=== PATIENT | male | born 1950 | race Caucasian/White ===

== ENCOUNTER 2019-04-11 01:35 | Emergency (ER) | payer MEDICARE, OTHER, SELFPAY ==
[2019-04-11 01:36] VITALS: BP 167/76; PULSE 75; RESP 18; TEMP 36.8; O2SAT 100; BMI 28.5
--- NOTE | 2019-04-11 01:38 | ED.GENADULT ---
HPI - General Adult General Chief complaint: GI Bleed Stated complaint: Rectal Bleeding Time Seen by Provider: 04/11/19 01:37 Source: patient Mode of arrival: ambulatory Limitations: no limitations History of Present Illness HPI narrative: Patient is a 68-year-old male on Brilinta after he had cardiac stents placed of rectal bleeding. Patient denies any abdominal pain. States that he has been straining somewhat movement of the past couple days. Is not having any pain in his rectum. Did have hematuria several days ago but nothing now. He states that he is having bright red blood per rectum. Related Data Allergies Allergy/AdvReac Type Severity Reaction Status Date / Time Sulfa (Sulfonamide Allergy Hives Verified 04/11/19 01:49 Antibiotics) Review of Systems Constitutional Denies fever(s) and Denies headache(s) ENT Ears, Nose, Mouth, and Throat: Denies headache(s) Cardiovascular Denies chest pain and Denies dyspnea Respiratory Denies dyspnea Gastrointestinal Gastrointestinal: Denies abdominal pain, Denies nausea and Denies vomiting Comments: Bright red blood per rectum Genitourinary Denies dysuria Integumentary/Breasts Denies rash Neurologic Denies behavioral changes and Denies headache(s) Psychiatric Denies behavioral changes Hematologic/Lymphatic Reports easy bleeding and Reports easy bruising [facility] Medical History (Updated 04/11/19 @ 04:49 by Xavier Blank DO) Coronary artery disease (Acute) Diabetes mellitus (Acute) HTN (hypertension) (Acute) Surgical History (Updated 04/11/19 @ 01:50 by Nicole Coffman RN) History of heart artery stent (Acute ~02/06/19) Social History (Updated 04/11/19 @ 04:49 by Xavier Blank DO) lives independently: Yes Social History (Updated 04/11/19 @ 04:49 by Xavier Blank DO) lives independently: Yes Exam Initial Vital Signs Initial Vital Signs: Vital Signs Temperature 98.3 F 04/11/19 01:36 Pulse Rate 75 04/11/19 01:36 Respiratory Rate 18 04/11/19 01:36 Blood Pressure 167/76 H 04/11/19 01:36 Pulse Oximetry 100 04/11/19 01:36 Const General: cooperative, healthy appearing, comfortable, well developed, well groomed and No acute distress Orientation: alert and awake [facility] Head: normal to inspection and normocephalic Resp Effort & Inspection: normal respiratory effort Cardio Rate: regular rate Rhythm: regular rhythm GI Inspection: non-distended Palpation: soft, No firm and No tender Rectal Exam: normal sphincter tone, heme positive stool and hemorrhoids Skin Rashes: no rashes Neuro General: alert and awake Extrem General: normal to inspection and capillary refill normal Course Orders Ordered: ED Orders 04/11/19 02:01 Basic Metabolic Panel Stat Complete Blood Count AUTO DIFF Stat Partial Thromboplastin Time Stat Prothrombin Time INR Stat Vital Signs - 8 hr 04/11/19 01:36 04/11/19 02:26 Temperature 98.3 F Pulse Rate 75 68 Respiratory Rate 18 Blood Pressure 167/76 H Blood Pressure [Left Arm] 140/69 Pulse Oximetry 100 100 Medical Decision Making Lab Data Lab results reviewed: Yes I reviewed the patient's lab results. Result diagrams: 04/11/19 02:01 04/11/19 02:01 Lab Results 04/11/19 04/11/19 04/11/19 Range/Units 02:01 02:01 02:01 WBC 7.5 (4.5-11.0) X10^3/uL RBC 4.52 (4.5-5.9) X10^6/uL Hgb 13.4 L (13.5-17.5) g/dL Hct 39.6 L (41-53) % MCV 87.7 (80-100) fL MCH 29.6 (26-34) PG MCHC 33.7 (30-36) % RDW 13.1 (11.6-14.8) % Plt Count 352 (150-400) X10^3/uL Neut % (Auto) 58.7 (50-75) % Lymph % (Auto) 24.2 L (25-40) % [place] % (Auto) 13.5 (3-14) % Eos % (Auto) 2.2 (2-4) % Baso % (Auto) 1.4 (0-2) % Neut # (Auto) 4400 (4657-3339) /uL Lymph # (Auto) 1800 (0776-7177) /uL [place] # (Auto) 1000 H (0-900) /uL Eos # (Auto) 200 (0-450) /uL Baso # (Auto) 100 (0-100) /uL PT 12.2 (10.1-12.7) SECONDS INR 1.1 (0.9-1.3) APTT 38 H (26.4-36.2) SECONDS Sodium 137 (137-145) mmol/L Potassium 4.0 (3.4-5.1) mmol/L Chloride 101 (98-107) mmol/L Carbon Dioxide 27 (22-32) mmol/L BUN 16 (9-20) mg/dL Creatinine 0.80 (0.66-1.25) mg/dL Estimated GFR > 60.0 (>60) mL/min BUN/Creatinine Ratio 20.0 (6-22) Glucose 161 H (80-110) mg/dL Calcium 9.4 (8.4-10.2) mg/dL MDM Narrative Medical decision making narrative: Patient does have bright red blood per rectum however has multiple external hemorrhoids that are thrombosed. He has no abdominal pain. Not anemic. Not tachycardic. I do suspect that his rectal bleeding secondary to the hemorrhoids complicated by the anti-platelet agents that he is taking. No indication for blood transfusion. No indication to admit to the hospital. We did discuss the hemorrhoids and treatment options for these. We discussed return precautions. He is going to follow up with his primary doctor. He expressed understanding and agreement plan. Discharge Plan Departure Patient Disposition: Home Clinical Impression: Hemorrhoids Qualifiers: Hemorrhoid type: other Qualified Code(s): K64.8 - Other hemorrhoids Discharge Date/Time: 04/11/19 02:35 Interventions: ED Discharge Assessment Last Done: 04/11/19 02:29 Instructions: Hemorrhoids (Alternative Therapy), DI for Hemorrhoid Banding, DI for Hemorrhoids Activity Restrictions/Additional Instructions: You can purchase tucks pads or preparation H [id number]. It is also important that you have nice soft bowel movements and avoiding diarrhea and constipation. Expect continued bleeding especially with bowel movements over the next several days. Tomorrow contact your primary doctor for a follow-up and to discuss the indications for referral to see General surgery. Continue all of your medications as directed. Referrals: Sarah Thomas ARNP [Primary Care Provider] -
[2019-04-11 02:11] LABS: Add Manual Diff / Slide Review NO; Basophils Absolute Auto 100 /uL (0-100); Basophils Percent Auto 1.4 % (0-2); Eosinophils Absolute Auto 200 /uL (0-450); Eosinophils Percent Auto 2.2 % (2-4); Hematocrit 39.6 % (41-53); Hemoglobin 13.4 g/dL (13.5-17.5); Lymphocytes Absolute Auto 1800 /uL (1100-4500); Lymphocytes Percent Auto 24.2 % (25-40); Mean Corpuscular HGB Conc 33.7 % (30-36); Mean Corpuscular Hemoglobin 29.6 PG (26-34); Mean Corpuscular Volume 87.7 fL (80-100); Monocytes Absolute Auto 1000 /uL (0-900); Monocytes Percent Auto 13.5 % (3-14); Neutrophils Absolute Auto 4400 /uL (1500-7000); Neutrophils Percent Auto 58.7 % (50-75); Platelet Count 352 X10^3/uL (150-400); Red Blood Cell Count 4.52 X10^6/uL (4.5-5.9); Red Cell Distribution Width 13.1 % (11.6-14.8); White Blood Cell Count 7.5 X10^3/uL (4.5-11.0)
[2019-04-11 02:16] LABS: INR 1.1 (0.9-1.3); Prothrombin Time 12.2 SECONDS (10.1-12.7)
[2019-04-11 02:18] LABS: PTT Partial Thromboplastin Tim 38 SECONDS (26.4-36.2)
[2019-04-11 02:20] LABS: Blood Urea Nitrogen 16 mg/dL (9-20); Calcium 9.4 mg/dL (8.4-10.2); Carbon Dioxide 27 mmol/L (22-32); Chloride 101 mmol/L (98-107); Estimated Glomerular Filt Rate > 60.0 mL/min (>60); Glucose 161 mg/dL (80-110); HEMOLYSIS < 15 (0-50); Sodium 137 mmol/L (137-145)
[2019-04-11 02:26] VITALS: BP 140/69; PULSE 68; O2SAT 100
== END 2019-04-11 02:35 | disposition home or self-care (01) ==
PROVIDERS: Emergency Provider Emergency Medicine; PCP Nurse Practitioner Family
DX: K64.8 Other hemorrhoids (principal)
CPT/HCPCS: 36415; 80048; 85025; 85610; 85730; 99282; 99283

== ENCOUNTER 2019-05-13 14:01 | Emergency (ER) | payer MEDICARE, OTHER, SELFPAY ==
[2019-05-13 14:11] VITALS: BP 148/81; PULSE 102; RESP 16; TEMP 38.9; O2SAT 96; BMI 28.7
--- NOTE | 2019-05-13 14:18 | DI.RAD.S_ITS ---
PROCEDURE: XR CHEST 1V INDICATIONS: suspected sepsis TECHNIQUE: One view of the chest was acquired. COMPARISON: None. FINDINGS: Surgical changes and devices: None. Lungs and pleura: Lungs are clear. No pleural effusions or pneumothorax. Mediastinum: Mediastinal contours appear normal. Heart size is normal. Bones and chest wall: No suspicious bony lesions. Overlying soft tissues appear unremarkable. IMPRESSION: No acute cardiopulmonary disease. Dictated by: Trini Jackson M.D. on 05/13/2019 at 14:51 Approved by: Trini Jackson M.D. on 05/13/2019 at 14:51
[2019-05-13] MEDS: SODIUM CHLORIDE 0.9% 1,000 ML 1000 ML IV (14:50)
--- NOTE | 2019-05-13 14:52 | PC.NURSE ---
PIV placed in left AC, labs drawn (purple, red, green, l.blue, bowens, cx x 2), labels applied after 2 identifier check with pt, conveyed to lab via tube system)
[2019-05-13 14:53] VITALS: TEMP 38.8
[2019-05-13] MEDS: ACETAMINOPHEN 325 MG TABLET 650 MG PO (14:53)
[2019-05-13 15:13] LABS: Add Manual Diff / Slide Review NO; Basophils Absolute Auto 0 /uL (0-100); Basophils Percent Auto 0.2 % (0-2); Eosinophils Absolute Auto 0 /uL (0-450); Hematocrit 40.5 % (41-53); Hemoglobin 13.4 g/dL (13.5-17.5); Lymphocytes Absolute Auto 700 /uL (1100-4500); Lymphocytes Percent Auto 3.8 % (25-40); Mean Corpuscular HGB Conc 33.1 % (30-36); Mean Corpuscular Hemoglobin 29.2 PG (26-34); Mean Corpuscular Volume 88.1 fL (80-100); Monocytes Absolute Auto 2100 /uL (0-900); Monocytes Percent Auto 11.2 % (3-14); Neutrophils Absolute Auto 16000 /uL (1500-7000); Neutrophils Percent Auto 84.8 % (50-75); Platelet Count 279 X10^3/uL (150-400); Red Cell Distribution Width 13.7 % (11.6-14.8); White Blood Cell Count 18.9 X10^3/uL (4.5-11.0)
[2019-05-13 15:20] LABS: INR 1.2 (0.9-1.3); Prothrombin Time 13.8 SECONDS (10.1-12.7)
[2019-05-13 15:23] LABS: PTT Partial Thromboplastin Tim 35 SECONDS (26.4-36.2)
[2019-05-13 15:25] LABS: Amorphous Sediment Urine 1+; Bacteria Urine Few (2-10); Culture Indicated Urine Specimen Cultured; Mucus Urine 1+ (Negative); RBC Urine 1-5/HPF (0-5/HPF); Squamous Epithelial Cell Urine 0-1 /HPF (0-5/HPF); WBC Urine 10-30/HPF (0-5/HPF)
[2019-05-13 15:27] LABS: Lactate (Lactic Acid) 1.3 mmol/L (0.7-2.1)
[2019-05-13 15:29] LABS: Alanine Aminotransferase 9 IU/L (21-72); Albumin 4.2 g/dL (3.5-5.0); Albumin Globulin Ratio 1.2 (1.0-2.8); Alkaline Phosphatase 87 U/L (38-126); Aspartate Aminotransferase 22 IU/L (17-59); BUN Creatinine Ratio 21.4 (6-22); Blood Urea Nitrogen 15 mg/dL (9-20); Carbon Dioxide 23 mmol/L (22-32); Chloride 99 mmol/L (98-107); Estimated Glomerular Filt Rate > 60.0 mL/min (>60); Globulin 3.5 g/dL (1.7-4.1); Glucose 172 mg/dL (80-110); HEMOLYSIS < 15 (0-50); Lipase 54 U/L (23-300); Potassium 3.8 mmol/L (3.4-5.1); Sodium 135 mmol/L (137-145); Total Protein 7.7 g/dL (6.3-8.2)
[2019-05-13] MEDS: levoFLOXacin 250 MG TABLET 750 MG PO (15:32)
[2019-05-13 15:36] VITALS: BP 139/66; PULSE 88; RESP 16; TEMP 38; O2SAT 98
--- NOTE | 2019-05-13 15:50 | ED_ITS ---
HPI - Fever General Chief Complaint: Fever Stated Complaint: BALANCE PROBLEMS Time Seen by Provider: 05/13/19 14:30 Source: patient Mode of arrival: ambulatory Limitations: no limitations History of Present Illness HPI Narrative: Patient comes to the emergency department complaining of a fever and not feeling well for the last 2 days. He states he has been urinating frequently wonders if he has a urinary tract infection. No chest pain, cough, or shortness of breath. No diarrhea. No sick contacts. Patient denies abdominal pain or chest pain. He states that he is on Humira and Otezla for atenolol-induced psoriasis. He states these have been controlling his psoriasis fairly well. No other complaints at this time. Related Data Home Medications Medication Instructions Recorded Confirmed adalimumab [Humira Pen] 1 dose SUBCUT Q2W 05/13/19 05/13/19 amlodipine 10 mg PO DAILY 05/13/19 05/13/19 apremilast [Otezla] 30 mg PO BID 05/13/19 05/13/19 blood sugar diagnostic [FreeStyle 05/13/19 05/13/19 Lite Strips] halobetasol propionate 1 applic TOPICAL DIRECTED 05/13/19 05/13/19 lisinopril 10 mg PO DAILY 05/13/19 05/13/19 metformin 1,000 mg PO BID 05/13/19 05/13/19 simvastatin 20 mg PO QPM 05/13/19 05/13/19 ticagrelor [Brilinta] 90 mg PO BID 05/13/19 05/13/19 Previous Rx's Medication Instructions Recorded levofloxacin [Levaquin] 500 mg PO DAILY #14 tab 05/13/19 ondansetron 4 mg PO Q6H PRN #14 tab 05/13/19 Allergies Allergy/AdvReac Type Severity Reaction Status Date / Time Sulfa (Sulfonamide Allergy Hives Verified 04/11/19 01:49 Antibiotics) Review of Systems Constitutional Denies chills, Reports fever(s), Denies lethargy and Denies weakness Eyes Denies change in vision, Denies eye discharge, Denies irritation and Denies loss of vision ENT Ears, Nose, Mouth, and Throat: Denies change in voice, Denies neck pain and Denies sore throat Cardiovascular Denies chest pain, Denies irregular heart rhythm, Denies lightheadedness, Denies palpitations, Denies dyspnea, Denies dyspnea on exertion and Denies orthopnea Respiratory Denies cough, Denies dyspnea, Denies dyspnea on exertion and Denies wheezing Gastrointestinal Gastrointestinal: Denies abdominal pain, Denies change in bowel habits, Denies diarrhea, Denies nausea and Denies vomiting Genitourinary Denies hematuria, Denies flank pain, Reports urinary frequency, Denies urinary incontinence and Denies urinary urgency Musculoskeletal Denies neck pain Integumentary/Breasts Denies pruritus, Denies erythema, Denies rash and Denies wounds Neurologic Denies confusion, Denies loss of vision and Denies weakness Psychiatric Denies anxiety, Denies confusion, Denies depression, Denies homicidal ideation and Denies suicidal ideation Endocrine Denies palpitations Hematologic/Lymphatic Denies easy bruising Allergic/Immunologic Denies wheezing [facility] Medical History Coronary artery disease (Acute) Diabetes mellitus (Acute) HTN (hypertension) (Acute) Surgical History History of heart artery stent (Acute ~02/06/19) Social History (Updated 04/11/19 @ 04:49 by Xavier Blank DO) lives independently: Yes Smoking Status: Former smoker Social History lives independently: Yes Smoking Status: Former smoker Exam Initial Vital Signs Initial Vital Signs: Vital Signs Temperature 102.0 F H 05/13/19 14:11 Pulse Rate 102 H 05/13/19 14:11 Respiratory Rate 16 05/13/19 14:11 Blood Pressure 148/81 H 05/13/19 14:11 Pulse Oximetry 96 05/13/19 14:11 Const General: cooperative and well developed Nutritional Appearance: well nourished Orientation: alert, awake, oriented x3 and not confused [facility] Head: normocephalic and atraumatic Ears: external ears normal Nose: external nose normal and No nasal discharge Face and sinus: face symmetric and No dry mucous membranes Mouth: oral mucosae normal and moist mucous membranes Teeth and gingiva: dentition normal Eyes General: appearance normal, both eyes and all related structures Eyelids: eyelids normal Conjunctivae: conjunctivae normal Sclera: sclerae normal Pupils: PERRL EOM: EOM intact bilaterally Neck Neck: normal visual inspection, trachea midline, No lymphadenopathy, No midline deformity and No JVD Lymphatic: No lymphedema Chest Chest: normal inspection of the chest Resp Effort & Inspection: normal respiratory effort, able to speak in complete sentences, no respiratory distress and no use of accessory muscles Auscultation: clear to auscultation bilaterally, no rales, no rhonchi and no wheezes Cardio Rate: regular rate Rhythm: regular rhythm Heart Sounds: no click, no gallops, no murmurs and no rubs Pulses: normal peripheral pulses GI Inspection: non-distended Palpation: soft, no hepatosplenomegaly, No guarding, No pulsatile mass and No tender Auscultation: normal bowel sounds Back/Spine/Pelvis Back: No CVA tenderness Cervical Spine: cervical ROM normal and No pain with cervical ROM Thoracic/Lumbar Spine: thoracic and lumbar spine normal to inspection Skin General: no rashes or lesions noted, No jaundice and No petechiae Neuro General: alert, oriented x3, gait normal and no focal motor deficits Speech: speech normal Extrem General: full ROM, no clubbing, cyanosis or edema, no pedal edema and no calf tenderness Psych Appearance: well kempt Mental Status: mental status grossly normal Attitude: cooperative Thought Content: normal and suicidality Judgment: judgment good Course Course Narrative: Patient was treated with IV fluids and antipyretics, and worked up with laboratory studies. Patient was found have a urinary tract infection and a leukocytosis. The patient was treated with antibiotics for the urinary tract infection, and on re-evaluation, was found to be feeling much much better. I felt he was stable for discharge home. The patient ambulated in the emergency department without difficulty. We have discussed the usual indications for return, as well as home management of symptoms. Orders Ordered: ED Orders 05/13/19 14:18 XR chest 1V Stat EKG-12 Lead Stat RT Consult Eval and Treat Now 05/13/19 14:30 Urine Culture Stat Urine Microscopic Stat 05/13/19 14:40 Complete Blood Count AUTO DIFF Stat Comprehensive Metabolic Panel Stat Lactate (Lactic Acid) Stat Lipase Stat Partial Thromboplastin Time Stat Procalcitonin Stat Prothrombin Time INR Stat 05/13/19 15:23 Blood Culture Stat Discontinued Medications Acetaminophen (Tylenol) 650 mg PO NOW ONE Stop: 05/13/19 14:52 Last Admin: 05/13/19 14:53 Dose: 650 mg Sodium Chloride (Normal Saline 0.9%) 1,000 mls @ 1,000 mls/hr IV BOLUS ONE Stop: 05/13/19 15:16 Last Infusion: 05/13/19 16:28 Dose: 0 mls/hr Admin: 05/13/19 14:50 Dose: 1,000 mls/hr Levofloxacin (Levaquin) 750 mg PO NOW ONE Stop: 05/13/19 15:13 Last Admin: 05/13/19 15:32 Dose: 750 mg Vital Signs - 8 hr 05/13/19 14:11 05/13/19 14:53 05/13/19 15:36 Temperature 102.0 F H 102 F H 100.4 F H Pulse Rate 102 H 88 Respiratory Rate 16 16 Blood Pressure 148/81 H Blood Pressure [Left Arm] 139/66 Pulse Oximetry 96 98 05/13/19 16:00 05/13/19 16:30 Temperature 100.6 F H Pulse Rate 81 Respiratory Rate 20 Blood Pressure Blood Pressure [Left Arm] 138/72 Pulse Oximetry 96 MDM - Fever Medical Records Attestation: I reviewed the patient's medical records. Lab Data Attestation: I reviewed the patient's lab results. Result diagrams: 05/13/19 14:40 05/13/19 14:40 Lab Results 05/13/19 05/13/19 05/13/19 Range/Units 14:30 14:40 14:40 WBC 18.9 H (4.5-11.0) X10^3/uL RBC 4.60 (4.5-5.9) X10^6/uL Hgb 13.4 L (13.5-17.5) g/dL Hct 40.5 L (41-53) % MCV 88.1 (80-100) fL MCH 29.2 (26-34) PG MCHC 33.1 (30-36) % RDW 13.7 (11.6-14.8) % Plt Count 279 (150-400) X10^3/uL Neut % (Auto) 84.8 H (50-75) % Lymph % (Auto) 3.8 L (25-40) % [place] % (Auto) 11.2 (3-14) % Eos % (Auto) 0.0 L (2-4) % Baso % (Auto) 0.2 (0-2) % Neut # (Auto) 50258 H (9610-4699) /uL Lymph # (Auto) 700 L (0372-8624) /uL [place] # (Auto) 2100 H (0-900) /uL Eos # (Auto) 0 (0-450) /uL Baso # (Auto) 0 (0-100) /uL PT 13.8 H (10.1-12.7) SECONDS INR 1.2 (0.9-1.3) APTT 35 D (26.4-36.2) SECONDS Sodium (137-145) mmol/L Potassium (3.4-5.1) mmol/L Chloride (98-107) mmol/L Carbon Dioxide (22-32) mmol/L BUN (9-20) mg/dL Creatinine (0.66-1.25) mg/dL Estimated GFR (>60) mL/min BUN/Creatinine Ratio (6-22) Glucose (80-110) mg/dL Lactate (0.7-2.1) mmol/L Calcium (8.4-10.2) mg/dL Total Bilirubin (0.2-1.3) mg/dL AST (17-59) IU/L ALT (21-72) IU/L Alkaline Phosphatase (38-126) U/L Total Protein (6.3-8.2) g/dL Albumin (3.5-5.0) g/dL Globulin (1.7-4.1) g/dL Albumin/Globulin Ratio (1.0-2.8) Lipase (23-300) U/L Procalcitonin (<0.5) ng/mL Urine RBC 1-5/hpf (0-5/HPF) Urine WBC 10-30/hpf H (0-5/HPF) Ur Squamous Epith Cells 0-1 /hpf (0-5/HPF) Amorphous Sediment 1+ Urine Bacteria Few (2-10) H (None) Urine Mucus 1+ H (Negative) Ur Culture Indicated? Specimen cultured 05/13/19 05/13/19 05/13/19 Range/Units 14:40 14:40 14:40 WBC (4.5-11.0) X10^3/uL RBC (4.5-5.9) X10^6/uL Hgb (13.5-17.5) g/dL Hct (41-53) % MCV (80-100) fL MCH (26-34) PG MCHC (30-36) % RDW (11.6-14.8) % Plt Count (150-400) X10^3/uL Neut % (Auto) (50-75) % Lymph % (Auto) (25-40) % [place] % (Auto) (3-14) % Eos % (Auto) (2-4) % Baso % (Auto) (0-2) % Neut # (Auto) (7885-1598) /uL Lymph # (Auto) (2271-7207) /uL [place] # (Auto) (0-900) /uL Eos # (Auto) (0-450) /uL Baso # (Auto) (0-100) /uL PT (10.1-12.7) SECONDS INR (0.9-1.3) APTT (26.4-36.2) SECONDS Sodium 135 L (137-145) mmol/L Potassium 3.8 (3.4-5.1) mmol/L Chloride 99 (98-107) mmol/L Carbon Dioxide 23 (22-32) mmol/L BUN 15 (9-20) mg/dL Creatinine 0.70 (0.66-1.25) mg/dL Estimated GFR > 60.0 (>60) mL/min BUN/Creatinine Ratio 21.4 (6-22) Glucose 172 H (80-110) mg/dL Lactate 1.3 (0.7-2.1) mmol/L Calcium 9.0 (8.4-10.2) mg/dL Total Bilirubin 1.0 (0.2-1.3) mg/dL AST 22 (17-59) IU/L ALT 9 L (21-72) IU/L Alkaline Phosphatase 87 (38-126) U/L Total Protein 7.7 (6.3-8.2) g/dL Albumin 4.2 (3.5-5.0) g/dL Globulin 3.5 (1.7-4.1) g/dL Albumin/Globulin Ratio 1.2 (1.0-2.8) Lipase 54 (23-300) U/L Procalcitonin 0.10 (<0.5) ng/mL Urine RBC (0-5/HPF) Urine WBC (0-5/HPF) Ur Squamous Epith Cells (0-5/HPF) Amorphous Sediment Urine Bacteria (None) Urine Mucus (Negative) Ur Culture Indicated? Urine Dip Bedside Urine Glucose Negative Bedside Urine Bilirubin - Negative Bedside Urine Ketone +++ 80 Urine Specific [place] 1.025 Bedside Urine Occult Blood +++ Bedside Urine pH 6.0 Bedside Urine Protein + 30 Bedside Urine Urobilinogen +/- 1mg Bedside Urine Nitrite - Negative Bedside Urine Leukocytes ++ 125 Esterase Imaging Data Chest x-ray: Radiologist's impression: PROCEDURE: XR CHEST 1V INDICATIONS: suspected sepsis TECHNIQUE: One view of the chest was acquired. COMPARISON: None. FINDINGS: Surgical changes and devices: None. Lungs and pleura: Lungs are clear. No pleural effusions or pneumothorax. Mediastinum: Mediastinal contours appear normal. Heart size is normal. Bones and chest wall: No suspicious bony lesions. Overlying soft tissues a ppear unremarkable. IMPRESSION: No acute cardiopulmonary disease. Dictated by: Trini Jackson M.D. on 05/13/2019 at 14:51 Approved by: Trini Jackson M.D. on 05/13/2019 at 14:51 Discharge Plan Departure Patient Disposition: Home Clinical Impression: Acute UTI Discharge Date/Time: 05/13/19 17:05 Interventions: ED Discharge Assessment Last Done: 05/13/19 17:04 Instructions: DI for Urinary Tract Infection (UTI) Activity Restrictions/Additional Instructions: Your urine is positive for infection. You have been started on antibiotics for this, as well as treated for fever and dehydration. Please take her antibiotics every day until they are gone. You may run fevers on and off for the next few days; however, you should began to notice some improvement after a few days of antibiotics. If you are not starting to feel better in the next few days, or certainly if your condition is worsening, please return for re-evaluation. Prescriptions: New levofloxacin [Levaquin] 500 mg tablet 500 mg PO DAILY Qty: 14 RF: 0 ondansetron 4 mg tablet,disintegrating 4 mg PO Q6H PRN (Reason: nausea and vomiting) Qty: 14 RF: 0 No Action metformin 500 mg tablet 1,000 mg PO BID RF: 0 FreeStyle Lite Strips strip RF: 0 amlodipine 10 mg tablet 10 mg PO DAILY RF: 0 simvastatin 20 mg tablet 20 mg PO QPM RF: 0 halobetasol propionate 0.05 % ointment 1 applic topical DIRECTED RF: 0 lisinopril 10 mg tablet 10 mg PO DAILY RF: 0 Humira Pen 40 mg/0.8 mL pen injector kit 1 dose subcut Q2W RF: 0 Brilinta 90 mg tablet 90 mg PO BID RF: 0 Otezla 30 mg tablet 30 mg PO BID RF: 0 Referrals: Sarah Thomas ARNP [Primary Care Provider] -
[2019-05-13 16:00] VITALS: TEMP 38.1
[2019-05-13 16:30] VITALS: BP 138/72; PULSE 81; RESP 20; O2SAT 96
[2019-05-14 15:11] LABS: Acinetobacter baumannii Not Detected (Not Detect); Candida albicans Not Detected (Not Detect); Candida glabrata Not Detected (Not Detect); Candida krusei Not Detected (Not Detect); Candida parapsilosis Not Detected (Not Detect); Candida tropicalis Not Detected (Not Detect); E. coli Not Detected (Not Detect); Enterobacter cloacae complex Not Detected (Not Detect); Enterobacteriaceae species Not Detected (Not Detect); Enterococcus species Not Detected (Not Detect); Haemophilus influenzae Not Detected (Not Detect); KPC (carbapenem-resist gene) Not Detected (Not Detect); Listeria monocytogenes Not Detected (Not Detect); Neisseria meningitidis Not Detected (Not Detect); Proteus species Not Detected (Not Detect); Pseudomonas aeruginosa Not Detected (Not Detect); Serratia marcescens Not Detected (Not Detect); Staphylococcus species Not Detected (Not Detect); Streptococcus agalactiae (Gr B Not Detected (Not Detect); Streptococcus pneumonia Not Detected (Not Detect); Streptococcus pyogenes (Gr A) Not Detected (Not Detect); Streptococcus species Not Detected (Not Detect)
== END 2019-05-13 17:05 | disposition home or self-care (01) ==
PROVIDERS: Emergency Provider Emergency Medicine; PCP Nurse Practitioner Family
DX: N39.0 Urinary tract infection, site not specified (principal); R00.0 Tachycardia, unspecified
CPT/HCPCS: 36415; 36591; 71045; 80053; 81003; 81015; 83605; 83690; 84145; 85025; 85610; 85730; 87040; 87077; 87086; 87150; 87186; 87205; 93005; 93010; 99283; 99285

== ENCOUNTER → 2021-12-27 08:36 | Outpatient (CLI) | payer MEDICARE, OTHER, SELFPAY | PROVIDERS: PCP Nurse Practitioner Family; Visit Provider Urology | DX: R30.0 Dysuria (principal) | CPT/HCPCS: 87086 ==

== ENCOUNTER → 2021-12-27 09:35 | Outpatient (CLI) | payer MEDICARE, OTHER, SELFPAY ==
--- NOTE | 2021-12-27 09:37 | DI.RAD.S_ITS ---
PROCEDURE: XR KUB INDICATIONS: Left renal calculus TECHNIQUE: One view of the abdomen acquired. COMPARISON: [facility], , [place] HEMATURIA PROTOCOL, 11/22/2021, 11:08. FINDINGS: Surgical changes and devices: None. Bowel: Bowel gas pattern is normal. Soft tissues: Known large left renal stone is obscured by bowel gas and stool. Visualized solid organ contours appear normal in size. Bones: No suspicious bony lesions. IMPRESSION: Known left renal stone is obscured by bowel gas and stool. Dictated by: Clemencia Bansal MD, PhD on 12/27/2021 at 10:47 Approved by: Clemencia Bansal MD, PhD on 12/27/2021 at 10:50
== END ==
PROVIDERS: PCP Internal Medicine; Referring Provider Urology; Visit Provider Urology
DX: N20.0 Calculus of kidney (principal); E11.59 Type 2 diabetes mellitus with other circulatory complications; R30.0 Dysuria; R31.0 Gross hematuria; N32.89 Other specified disorders of bladder; I25.10 Atherosclerotic heart disease of native coronary artery without angina pectoris
CPT/HCPCS: 51798; 74018; 81002; 87086; 99215

== ENCOUNTER → 2022-01-19 14:29 | Outpatient (CLI) | payer MEDICARE, OTHER, SELFPAY | PROVIDERS: PCP Internal Medicine; Visit Provider Urology | DX: R30.0 Dysuria (principal); N32.89 Other specified disorders of bladder; R31.0 Gross hematuria | CPT/HCPCS: 81002; 87086; 99215 ==

== ENCOUNTER → 2022-01-23 09:58 | Outpatient (CLI) | payer MEDICARE, OTHER, SELFPAY ==
[2022-01-23 11:48] LABS: COVID19 -Nasal RAPID Negative (Negative)
== END ==
PROVIDERS: PCP Internal Medicine; Visit Provider Urology
DX: Z20.822 Contact with and (suspected) exposure to COVID-19 (principal)
CPT/HCPCS: 87635; C9803

== ENCOUNTER 2022-01-26 08:38 | Day surgery (SDC) | payer MEDICARE, OTHER, SELFPAY ==
[2022-01-24 14:15] VITALS: BMI 29.5
[2022-01-26] VITALS (9 sets, daily range): BP systolic 102–150; BP diastolic 54–81; PULSE 54–99; RESP 11–17; TEMP 36.2–36.8; O2SAT 96–100; BMI 29.5
--- NOTE | 2022-01-26 | PATH_ITS ---
[facility] Accession Number: [id number] . 01 Material submitted: . bladder - LEFT LATERAL ANTERIOR BLADDER WALL TUMOR . 02 Diagnosis: Left Lateral Anterior Bladder Wall Tumor, Transurethral Resection of Bladder Tumor: High-grade urothelial carcinoma. Please see Cancer Case Summary. . CASE SUMMARY: . Specimen . Procedure: Transurethral resection of bladder (TURBT). . Tumor Tumor site: Left lateral anterior bladder wall. Histologic type: Urothelial carcinoma, invasive. Percentage of glandular differentiation: Approximately 10%; histologic grade of glandular component: moderately differentiated / G2. Percentage of small cell neuroendocrine component: 0%. Histologic grade: High grade. Tumor extent: Invades lamina propria (subepithelial connective tissue). Lymphovascular invasion: Present. Tumor configuration: Papillary and solid. Muscularis propria: Small fragments present; negative for tumor. Additional findings: Urothelial dysplasia/carcinoma in situ. V 02/01/2022 1402 Local . 02 Comment: As part of routine manufacturing quality technician, this case was also reviewed by Dr. Cook, who agrees with the interpretation. . Call placed to Dr. Naidu's office ([facility]) to discuss results on 02-01-22 at approximately 1:58 p.m. . 02 Electronically signed: . Ibis Staton MD, Pathologist NPI- [id number] . 01 Gross description: . Received in one part: . Received in formalin labeled Stewart Sanderson, designated left lateral anterior bladder wall tumor, is a 2.0 g, 4.0 x 2.5 x 0.6 cm aggregate of bowens-perez, fibro-rubbery tissue fragments, entirely submitted in cassettes A1-A2. (YVONNE:[id number]) /R 01/29/2022 1619 Local . 02 Microscopic: . An immunohistochemistry study is performed to evaluate the cells of interest. The control stains show appropriate reactivity. . RESULTS: Blocks A1 and A2 Synaptophysin: Negative. Chromogranin: Negative. CARLOS-3: Diffusely positive. P63: Patchy positivity (approximately 10-20% of tumor). D2-40: Foci suspicious for lymphovascular involvement. SMMS: Muscularis propria identified. . The neoplastic cells are strongly and diffusely immunopositive for CARLOS-3 with patchy p63 immunostaining, consistent with urothelial origin. The neoplastic cells are immunonegative for synaptophysin and chromogranin, excluding neuroendocrine differentiation. SMMS highlights rare fragments of muscularis propria that appear negative for involvement by tumor. There are focal areas concerning for lymphovascular involvement by D2-40 immunostain. . * This test was developed and its performance characteristics determined by [facility]. It has not been cleared or approved by the U.S. Food and Drug Administration. The FDA has determined that such clearance or approval is not necessary. This test is used for clinical purposes. It should not be regarded as investigational or for research . 02 Pathologist provided ICD-10: C67.9 . 02 CPT . 168676, Q12496, [id number] Specimen Comment: A courtesy copy of this report has been sent to [phone] Performed at: 01 [facility] [address] [place] [address], [place], [place] [id number] MD Ke Lopez MD Phone: [phone] Performed at: 02 [facility] [place] [address] [place] [id number] MD Cecilia Cook MD Phone: [phone]
[2022-01-26] MEDS: LACTATED RINGERS 1,000 ML 25 ML IV (10:00)
--- NOTE | 2022-01-26 10:37 | SUR.OPER ---
Supine on padded OR bed, head on pillow, arms secured on padded arm boards at <90 degrees abduction, legs uncrossed, safety belt at thigh, tape over blanket over lower legs.
[2022-01-26] MEDS: CEFAZOLIN 2 GM/20 ML SYRINGE IV (11:10)
[2022-01-26] MEDS: BELLADONNA/OPIUM SUPPOSITORIES 1 EACH PR (11:41)
[2022-01-26] MEDS: WATER FOR INJECTION,STERILE 20 ML, mitoMYcin 20 MG INTRAVESIC (11:48)
[2022-01-26] MEDS: ONDANSETRON 4 MG/2 ML INJ IV (12:58)
--- NOTE | 2022-01-26 12:59 | SUR.PHASEI ---
Patient awake but drowsy; denies any pain; repeat blood sugar 194; asymptomatic.
[2022-01-26] MEDS: LACTATED RINGERS 1,000 ML 42 ML IV (13:00)
--- NOTE | 2022-01-26 13:15 | PM.OP.1 ---
Procedure & Clinicians Procedure: Transurethral resection of bladder tumor left anterior lateral wall large Same procedure as scheduled: Yes Indications: This 71-year-old male presented with gross hematuria through workup was found to have a left lateral wall bladder tumor presents this time for resection. Surgeon: Brayan Naidu Click Yes if Unassisted: Yes Anesthesia Type: General Operative Notes Findings: Urethra normal prostatic fossa which shows moderate to severe obstructive character. The left and right ureteral orifice were normal position with clear efflux. On the left lateral anterior bladder wall was a an extensive feel the papillary tumor 5 to 5.5 cm in diameter with extension at out onto the wall the papillary lesions no distinct CIS was seen. It was irregular some of it had a rather flat appearing and there did appear to be bullous edema around the tumor. There was neovascularity. At the end of the resection the tumor was resected to the limits of my comfort. It is my estimation given the size of the tumor and irregularity that it will require second-look procedure. Closure Type: not applicable Specimen(s): other (Chips and fragments of resected left lateral wall bladder tumor) Prosthetic devices, grafts, tissues, transplants, or devices: None Applied: catheter (24 [place] 30 cc hematuria catheter) Estimated Blood Loss (mL): 25 Blood products transfused: none Procedure in detail: After informed consent was obtained, the patient was identified, and brought to the operating room. Patient was placed in a supine position on the table where anesthesia was induced to maintain. Patient was then transitioned to the lithotomy position. Once in the lithotomy position and ensuring adequate level of anesthesia the patient was prepped, draped, prepared for transurethral procedure. After prepping draping and ensuring an adequate level of anesthesia a 22 [place] cystoscope was passed through the urethra prostate into the bladder cystoscopy was performed. With the findings and had the cystoscope was removed and the continuous-flow resectoscope was inserted under direct vision. The direct vision obturator was was exchanged for the resecting element. With noting of the left ureteral orifice the tumor was then resected sequentially from inferior to superior or posterior to anterior and superior to inferior. Some of the smaller papillary lesions were fulgurated. The resection within the limits of my comfort the resection was stopped and the fragments were removed. Note prior to the procedure and prior to prep the patient received per rectum B and O suppository. The fragments were removed from the bladder. The bladder was drained filled drained filled and points of bleeding were controlled with electrocautery. The bladder was left full the catheter was inserted without difficulty in the balloon filled with 35 cc of sterile water. Mitomycin was instilled in the bladder in the plugged left in place. The patient was awakened taken the postanesthesia care having tolerated procedure well patient to follow-up my office in approximately 10 days. There were no complications Complications: none Post-operative Condition: stable Disposition: PACU Plan for aftercare: Once awake and alert and after the 2 hour period of mitomycin installation the patient is to be discharged home to follow up my office in 10 days.
--- NOTE | 2022-01-26 13:17 | SUR.PHASEI ---
Patient to right side for TURBT. Denies any pain at this time.
--- NOTE | 2022-01-26 15:13 | SUR.PHASEII ---
1415-Recieved report/acceptance of patient. pt wide awake and alert.tolerating ice chips. vss. no complaints. gan clamped. 1430-gan unclamped-drained to gravity. 1445-600ml emptied.clear marroon colored urine. catheter with dark coloration prior to exit port-ns flush x 2 60ml -returns readily no clots. no changes with coloration of tubing.no clots felt in catheter section . 1455- leg bag and overnight bag shown/explained to patient. patient adjusted leg bag for comfort after shown how to exchange bags. 1515-home instructions completed with patient , questions answered. 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 1520-Denies pain or nausea. iv out. dressed self. all post op equiptment (leg bag/overnite bag) with patient on discharge.
== END 2022-01-26 15:20 | disposition home or self-care (01) ==
PROVIDERS: PCP Internal Medicine; Referring Provider Urology; Visit Provider Urology
PROC: 0TBB8ZZ Excision of Bladder, Via Natural or Artificial Opening Endoscopic (ICD-10-PCS; CPT 52240; principal; 2022-01-26 10:30)
DX: C67.8 Malignant neoplasm of overlapping sites of bladder (principal); E11.9 Type 2 diabetes mellitus without complications; Z79.84 Long term (current) use of oral hypoglycemic drugs
CPT/HCPCS: 52240; 82962; J0690; J2405; J2704; J3010; J9280

== ENCOUNTER 2022-02-05 18:26 | Emergency (ER) | payer MEDICARE, OTHER, SELFPAY ==
[2022-02-05 18:36] VITALS: BP 165/73; PULSE 76; RESP 14; TEMP 36.5; O2SAT 98; BMI 27.0
--- NOTE | 2022-02-05 19:10 | ED.MALEGU ---
HPI - Male Genitourinary General Chief complaint: Urogenital-Male Stated complaint: Catheter blocked x5 days Time Seen by Provider: 02/05/22 18:44 Source: patient Mode of arrival: Ambulatory History of Present Illness HPI Narrative: 71-year-old male former smoker with history of coronary artery disease, diabetes, bladder mass, kidney stones, hypertension and recent TURP presents with Gan catheter problems for the past few days. He states that he has been having increasing difficulty draining his catheter that was placed after urologic surgery on January 26. His follow-up appointment is next month. He has increasing suprapubic pain but denies fever, chills nor nausea or vomiting. His pain is worse with motion and improves with rest. He states he was not given any instructions or tools to irrigate his Gan and therefore has not done it at home. Related Data Home Medications Medication Instructions Recorded Confirmed adalimumab 40 mg/0.8 mL 1 dose SUBCUT Q2W 05/13/19 01/26/22 subcutaneous pen kit amlodipine 10 mg tablet 10 mg PO DAILY 05/13/19 01/26/22 apremilast 30 mg tablet 30 mg PO BID 05/13/19 01/24/22 blood sugar diagnostic 05/13/19 01/19/22 halobetasol propionate 0.05 % 1 applic TOPICAL DIRECTED 05/13/19 01/24/22 topical ointment lisinopril 10 mg tablet 10 mg PO DAILY 05/13/19 01/24/22 metformin 500 mg tablet 1,000 mg PO BID 05/13/19 01/26/22 aspirin 81 mg tablet,delayed 81 mg PO DAILY 12/26/21 01/26/22 release (Adult Aspirin Regimen) rosuvastatin 40 mg tablet 40 mg PO DAILY 12/26/21 01/26/22 Previous Rx's Medication Instructions Recorded oxybutynin chloride 5 mg tablet 5 mg PO BID-TID PRN #30 tab 01/26/22 oxybutynin chloride 5 mg tablet 5 mg PO BID-TID PRN #30 tab 01/26/22 phenazopyridine 200 mg tablet 200 mg PO TID PRN #30 tab 01/26/22 (Pyridium) phenazopyridine 200 mg tablet 200 mg PO TID PRN #30 tab 01/26/22 (Pyridium) Allergies Allergy/AdvReac Type Severity Reaction Status Date / Time Sulfa (Sulfonamide Allergy Hives Verified 02/05/22 18:38 Antibiotics) atenolol AdvReac Intermediate Rash Verified 02/05/22 18:38 Review of Systems Review of Systems Narrative: GENERAL: Denies chills, fatigue, malaise, fever, sweats. HEENT: Denies sinus pain, ear pain, sore throat, difficulty swallowing, dizziness. RESPIRATORY: Denies dyspnea, cough, wheezing, hemoptysis, sputum. CARDIOVASCULAR: Denies chest pain, palpitations, orthopnea, edema, GASTROINTESTINAL: See HPI : See HPI MUSCULOSKELETAL: denies weakness, joint pain, or bony pain SKIN: Denies rash, skin lesions, or other NEUROLOGIC: Denies weakness, headache, numbness, change in speech, confusion, seizures, incoordination. PSYCHIATRIC: No concerning psychosocial issues. 12 point review of systems is negative except for those stated above Patient History Medical History Bladder mass Coronary artery disease Diabetes mellitus Gross hematuria HTN (hypertension) Kidney disease Kidney stones Psoriasis Surgical History H/O laparoscopy History of heart artery stent (~02/06/19) Hx of hernia repair Family History Mother CVA (cerebral vascular accident) Hypertension UTI (urinary tract infection) CAD (coronary artery disease) Sister Diabetes mellitus Gout Bilateral kidney stones Social History marital status: number of children: 0 household members: none lives independently: Yes Smoking Status: Former smoker alcohol intake: current Smoking Status: Former smoker alcohol intake frequency: a few times a month Substance Use Type: marijuana Exam Narrative Exam Narrative: GENERAL: [71 year old patient appears stated age. Well-developed patient, in mild distress. HEAD: Atraumatic. Normocephalic. EYES: Pupils equal round and reactive. Extraocular motions intact. No scleral icterus. No injection or drainage. ENT: Nose without bleeding, purulent drainage. Throat without erythema, tonsillar hypertrophy or exudate. Airway patent. NECK: Trachea midline. Non tender CARDIOVASCULAR: Regular rate and rhythm without murmurs, gallops, or rubs. RESPIRATORY: Clear to auscultation. Breath sounds equal bilaterally. No wheezes, rales, or rhonchi. GASTROINTESTINAL: Abdomen soft, mild suprapubic pain, nondistended. EXTREMITIES: No edema or joint tenderness. BACK: Nontender without deformity or crepitance. No flank tenderness. NEURO: AOx3. SKIN: No rash or erythema of visible areas Initial Vital Signs Initial Vital Signs: Vital Signs Temperature 97.7 F 02/05/22 18:36 Pulse Rate 76 02/05/22 18:36 Respiratory Rate 14 02/05/22 18:36 Blood Pressure 165/73 H 02/05/22 18:36 Pulse Oximetry 98 02/05/22 18:36 Course Course Course Narrative: Nursing attempted flushing existing Gan without success. We will replace it with a 3 way and irrigate 24F gan placed, it advances easily and without pain and there is no pain when balloon is inflated. He does, however, experience pain when it is flushed. It drains properly and there is 600mL of pinkish urine in bag. Orders Ordered: ED Orders 02/05/22 21:39 CT abdomen pelvis w con Stat 02/05/22 21:45 BMP [Basic Metabolic Panel] Stat CBC Auto Diff [Complete Blood Count AUTO DIFF] Stat Discontinued Medications Lidocaine HCl (Lidocaine 2% (Glydo) 6 Ml Gel) 6 ml TOP NOW ONE Stop: 02/05/22 20:38 Last Admin: 02/05/22 21:18 Dose: 6 ml Documented by: [email or web address] Consultations Consultation #1: discussed with Dr. Cheung, converter operator urology at . We have discussed the patient's history and physical as well as recent history, labs and imaging. Patient is pain-free, Gan is draining, he shows no signs of sepsis and labs are reassuring. She recommends close follow-up with his urologist to apply CT findings to the patient's case. No indication for admission or need for emergent procedure. Vital Signs Vital signs: Vital Signs - 8 hr 02/05/22 18:36 02/05/22 21:37 Temperature 97.7 F Pulse Rate 76 77 Respiratory Rate 14 16 Blood Pressure 165/73 H 141/79 H Pulse Oximetry 98 99 MDM - Male Genitourinary Lab Data Result diagrams: 02/05/22 21:45 02/05/22 21:45 Labs: Lab Results 02/05/22 02/05/22 Range/Units 21:45 21:45 WBC 8.7 (4.5-11.0) X10^3/uL RBC 4.75 (4.5-5.9) X10^6/uL Hgb 14.0 (13.5-17.5) g/dL Hct 41.2 (41-53) % MCV 86.7 (80-100) fL MCH 29.4 (26-34) PG MCHC 34.0 (30-36) % RDW 14.1 (11.6-14.8) % Plt Count 304 (150-400) X10^3/uL Neut % (Auto) 70.5 (50-75) % Lymph % (Auto) 18.7 L (25-40) % Union % (Auto) 7.6 (3-14) % Eos % (Auto) 1.6 L (2-4) % Baso % (Auto) 1.6 (0-2) % Neut # (Auto) 6100 (0951-7949) /uL Lymph # (Auto) 1600 (7703-8953) /uL Union # (Auto) 700 (0-900) /uL Eos # (Auto) 100 (0-450) /uL Baso # (Auto) 100 (0-100) /uL Sodium 136 L (137-145) mmol/L Potassium 4.2 (3.4-5.1) mmol/L Chloride 105 (98-107) mmol/L Carbon Dioxide 23 (22-32) mmol/L BUN 20 (9-20) mg/dL Creatinine 0.96 (0.66-1.25) mg/dL Estimated GFR > 60.0 (>60) mL/min BUN/Creatinine Ratio 20.8 (6-22) Glucose 257 H (80-110) mg/dL Calcium 10.0 (8.4-10.2) mg/dL Imaging Data CT scan - abdomen/pelvis: Radiologist's Impression: Launch?[address] [address] [address] Scan Report Signed Patient: Stewart Sanderson MR#: [id number] : 1950 Acct:[id number] Age/Sex: 71 / M Date of Service: 02/05/22 Loc: ED Accession Number: [id number] ?? Procedure: CT abdomen pelvis w con Ordering Provider: Butch Archer D.O. PROCEDURE:? CT ABDOMEN PELVIS W CON ? INDICATIONS:? lower abdominal pain, recent bladder tumor resection ? TECHNIQUE:? After the administration of IV contrast, axial sections were acquired from the lung bases to the pubic symphysis.? Coronal and sagittal reformats were performed.? For radiation dose reduction, the following was used:? automated exposure control, adjustment of mA and/or kV according to patient size. ? COMPARISON:? [facility], , [place]? HEMATURIA? PROTOCOL, 11/22/2021, 11:08. ? FINDINGS:? Image quality:? Excellent.? ? Lung bases:? Unremarkable.? ? Heart:? No significant findings. ? ? ABDOMEN: Liver:? Liver is 18.8 cm with steatosis. Gallbladder:? Multiple stones are present within the gallbladder, unchanged without wall thickening.? ? Biliary ducts:? Unremarkable.? ? Pancreas:? Unremarkable.? ? Spleen:? Unremarkable.? ? Adrenal Glands:? Unremarkable.? ? Kidneys and Ureters:? Nonobstructing left renal calcification is present.? Low-attenuation foci are present within the left kidney, unchanged and suggestive of cysts. ? Stomach and Bowel:? Stomach, small bowel loops, and colon are unremarkable.? Peritoneum:? No abnormal intraperitoneal fluid.? No free air.? ? Ventral Wall: ? No hernia.? Abdominal Nodes:? No retroperitoneal or mesenteric adenopathy by size criteria.? There is a left periaortic lymph node measuring 6 mm on series 3, image 37 previously measuring 3 mm on 11/22/2020.? Multiple subcentimeter periaortic and aortocaval lymph nodes are present, mildly increased in size compared to prior exam. Vessels:? Aorta and inferior vena cava are normal in size.? ? PELVIS: Pelvic Organs:? Unremarkable.? ? Bladder:? The bladder is collapsed limiting evaluation.? Gan catheter is present.? Wall is diffusely thickened.? Air is noted in the nondependent portion.? In addition, there is a slight rim enhancing low-attenuation fluid collection in the posterior aspect measuring 3.4 x 4.8 cm.? Punctate area air is noted along the superior lateral margin seen on series 2, image 68.? There is mild surrounding pericystic stranding. Pelvic Nodes: No enlarged lymph nodes.? Miscellaneous: No inguinal hernias are seen. ? ? ? Bones:? Unremarkable.? IMPRESSION:? ? The bladder demonstrates a diffusely thickened wall.? In addition, a low-attenuation partially rim enhancing fluid collection is noted posterior and in direct approximation to the Gan catheter.? Small air focus is noted along the superior aspect this collection.? While the overall thickened appearance of the bladder may be secondary to incomplete distention, given presence the partially rim enhancing fluid collection and pericystic stranding, overall appearance raises concern for potential bladder wall abscess and subsequent thickening secondary to infection/inflammation. ? ? Subcentimeter periaortic and aortocaval lymph nodes, which have increased in size compared to prior exam.? ? Dictated by: Moni Kelly M.D. on 02/05/2022 at 22:31 ? ? Approved by: Moni Kelly M.D. on 02/05/2022 at 22:38 ? MDM Narrative Medical decision making narrative: Patient history and exam is reassuring. He has had no fever, has noSigns of sepsis, no elevated white blood cell count. Pain is well controlled, Gan has been exchanged and is draining. Discussed CT findings with on-call Urology, findings are not necessarily abscess. I did have extensive discussion with the patient at the bedside regarding possible options including waiting in the emergency department overnight for repeat evaluations, pain control if needed in consultation with Urology once they start taking call later in the morning. After discussing risks and benefits he would prefer to go home, lives relatively goes and understands the return precautions. He understands the importance of close follow-up and intends to call his doctor 1st thing in the morning Discharge Plan Departure Patient Disposition: Home Clinical Impression: Complication of Gan catheter Activity Restrictions/Additional Instructions: *You have been diagnosed with [Gan catheter problem. Your Gan catheter has been swabbed out and is now draining appropriately. Though there is an abnormal finding on the CT scan I have discussed this with on-call Urology and we sure the opinion that you are appropriate for discharge with close follow-up. As we discussed, please call your urologist 1st thing in the morning *What to do: *Please continue to take your regular medications as directed. [ ] New medication prescriptions sent to your pharmacy: [ ] [ ] New medication written as a paper prescription [x ] No new medications given *Return to Emergency Department if you should have any new, worsening or concerning symptoms, such as [fever greater than 101 F, shaking chills, worsening pain, persistent vomiting or other bothersome symptoms] Prescriptions: No Action phenazopyridine [Pyridium] 200 mg tablet 200 mg PO TID PRN (Reason: pain) Qty: 30 0RF oxybutynin chloride 5 mg tablet 5 mg PO BID-TID PRN (Reason: bladder spasms) Qty: 30 0RF metformin 500 mg tablet 1,000 mg PO BID 0RF (DME) blood sugar diagnostic strip 0RF amlodipine 10 mg tablet 10 mg PO DAILY 0RF halobetasol propionate 0.05 % ointment 1 applic topical DIRECTED 0RF lisinopril 10 mg tablet 10 mg PO DAILY 0RF adalimumab 40 mg/0.8 mL pen injector kit 1 dose subcut Q2W 0RF apremilast 30 mg tablet 30 mg PO BID 0RF oxybutynin chloride 5 mg tablet 5 mg PO BID-TID PRN (Reason: bladder spasms) Qty: 30 0RF phenazopyridine [Pyridium] 200 mg tablet 200 mg PO TID PRN (Reason: pain) Qty: 30 0RF aspirin [Adult Aspirin Regimen] 81 mg tablet,delayed release (DR/EC) 81 mg PO DAILY 0RF rosuvastatin 40 mg tablet 40 mg PO DAILY 0RF Referrals: Carole Thomas MD [Primary Care Provider] - Brayan Naidu MD [Physician] -
--- NOTE | 2022-02-05 20:15 | PC.NURSE ---
Pt reports issues with catheter draining, associated pain in bladder area. Irrigated catheter with syringe, resistance met with pullback, small clots pulled back, but slow trickle of output when reattached to catheter bag. Pt reports better flow when he changes positions, pt repositioned with some improvement of flow. Dr. Archer notified.
[2022-02-05] MEDS: LIDOCAINE 2% (GLYDO) 6 ML GEL TOP (21:18)
[2022-02-05 21:37] VITALS: BP 141/79; PULSE 77; RESP 16; O2SAT 99
--- NOTE | 2022-02-05 21:39 | DI.CT.S_ITS ---
PROCEDURE: CT ABDOMEN PELVIS W CON INDICATIONS: lower abdominal pain, recent bladder tumor resection TECHNIQUE: After the administration of IV contrast, axial sections were acquired from the lung bases to the pubic symphysis. Coronal and sagittal reformats were performed. For radiation dose reduction, the following was used: automated exposure control, adjustment of mA and/or kV according to patient size. COMPARISON: [facility], CT HEMATURIA PROTOCOL, 11/22/2021, 11:08. FINDINGS: Image quality: Excellent. Lung bases: Unremarkable. Heart: No significant findings. ABDOMEN: Liver: Liver is 18.8 cm with steatosis. Gallbladder: Multiple stones are present within the gallbladder, unchanged without wall thickening. Biliary ducts: Unremarkable. Pancreas: Unremarkable. Spleen: Unremarkable. Adrenal Glands: Unremarkable. Kidneys and Ureters: Nonobstructing left renal calcification is present. Low-attenuation foci are present within the left kidney, unchanged and suggestive of cysts. Stomach and Bowel: Stomach, small bowel loops, and colon are unremarkable. Peritoneum: No abnormal intraperitoneal fluid. No free air. Ventral Wall: No hernia. Abdominal Nodes: No retroperitoneal or mesenteric adenopathy by size criteria. There is a left periaortic lymph node measuring 6 mm on series 3, image 37 previously measuring 3 mm on 11/22/2020. Multiple subcentimeter periaortic and aortocaval lymph nodes are present, mildly increased in size compared to prior exam. Vessels: Aorta and inferior vena cava are normal in size. PELVIS: Pelvic Organs: Unremarkable. Bladder: The bladder is collapsed limiting evaluation. Preston catheter is present. Wall is diffusely thickened. Air is noted in the nondependent portion. In addition, there is a slight rim enhancing low-attenuation fluid collection in the posterior aspect measuring 3.4 x 4.8 cm. Punctate area air is noted along the superior lateral margin seen on series 2, image 68. There is mild surrounding pericystic stranding. Pelvic Nodes: No enlarged lymph nodes. Miscellaneous: No inguinal hernias are seen. Bones: Unremarkable. IMPRESSION: The bladder demonstrates a diffusely thickened wall. In addition, a low-attenuation partially rim enhancing fluid collection is noted posterior and in direct approximation to the Preston catheter. Small air focus is noted along the superior aspect this collection. While the overall thickened appearance of the bladder may be secondary to incomplete distention, given presence the partially rim enhancing fluid collection and pericystic stranding, overall appearance raises concern for potential bladder wall abscess and subsequent thickening secondary to infection/inflammation. Subcentimeter periaortic and aortocaval lymph nodes, which have increased in size compared to prior exam. Dictated by: Moni Kelly M.D. on 02/05/2022 at 22:31 Approved by: Moni Kelly M.D. on 02/05/2022 at 22:38
[2022-02-05 21:57] LABS: Add Manual Diff / Slide Review NO; Basophils Absolute Auto 100 /uL (0-100); Basophils Percent Auto 1.6 % (0-2); Eosinophils Absolute Auto 100 /uL (0-450); Eosinophils Percent Auto 1.6 % (2-4); Hematocrit 41.2 % (41-53); Lymphocytes Absolute Auto 1600 /uL (1100-4500); Lymphocytes Percent Auto 18.7 % (25-40); Mean Corpuscular Hemoglobin 29.4 PG (26-34); Mean Corpuscular Volume 86.7 fL (80-100); Monocytes Absolute Auto 700 /uL (0-900); Monocytes Percent Auto 7.6 % (3-14); Neutrophils Absolute Auto 6100 /uL (1500-7000); Neutrophils Percent Auto 70.5 % (50-75); Platelet Count 304 X10^3/uL (150-400); Red Blood Cell Count 4.75 X10^6/uL (4.5-5.9); Red Cell Distribution Width 14.1 % (11.6-14.8); White Blood Cell Count 8.7 X10^3/uL (4.5-11.0)
[2022-02-05 22:03] LABS: BUN Creatinine Ratio 20.8 (6-22); Blood Urea Nitrogen 20 mg/dL (9-20); Carbon Dioxide 23 mmol/L (22-32); Chloride 105 mmol/L (98-107); Estimated Glomerular Filt Rate > 60.0 mL/min (>60); Glucose 257 mg/dL (80-110); HEMOLYSIS < 15 (0-50); Potassium 4.2 mmol/L (3.4-5.1); Sodium 136 mmol/L (137-145)
--- NOTE | 2022-02-05 23:45 | PC.NURSE ---
leg bag placed on catheter
== END 2022-02-05 23:48 | disposition home or self-care (01) ==
PROVIDERS: Emergency Provider Emergency Medicine; PCP Internal Medicine
DX: T83.84XA Pain due to genitourinary prosthetic devices, implants and grafts, initial encounter (principal); Z87.891 Personal history of nicotine dependence; Z46.6 Encounter for fitting and adjustment of urinary device; Y73.2 Prosthetic and other implants, materials and accessory gastroenterology and urology devices associated with adverse incidents
CPT/HCPCS: 36415; 51702; 74177; 80048; 85025; 99284; Q9967

== ENCOUNTER → 2022-02-16 09:14 | Outpatient (CLI) | payer MEDICARE, OTHER, SELFPAY | PROVIDERS: PCP Internal Medicine; Visit Provider Urology | DX: R30.0 Dysuria (principal); R82.81 Pyuria; R33.9 Retention of urine, unspecified | CPT/HCPCS: 51798; 87077; 87086; 87186 ==

== ENCOUNTER 2022-05-06 22:34 | Emergency (ER) | payer MEDICARE, OTHER, SELFPAY ==
[2022-05-06 22:40] VITALS: BP 194/89; PULSE 85; RESP 22; TEMP 37; O2SAT 94; BMI 25.0
--- NOTE | 2022-05-06 23:20 | ED.MALEGU ---
HPI - Male Genitourinary General Chief complaint: Urogenital-Male Stated complaint: unable to urinate x4 days Time Seen by Provider: 05/06/22 22:36 Source: patient Mode of arrival: Ambulatory History of Present Illness HPI Narrative: 71M former smoker with history of bladder cancer, CAD, DM, and kidney stones presents with a chief complaint of gradually worsening difficulty with producing a urine stream over the past few days if not weeks as well as generalized abdominal discomfort and decreased bowel movements over the past few days. He denies any headache, blurred vision or sore throat. He has had no chest pain or shortness of breath. He admits to nausea but denies any vomiting. He states that he has had very firm stools and having difficulty passing stools but still passing gas. He is managed by local urology and has had issues with urinary retention and enlarged prostate in the past. He has been having issues with urinary retention a few months ago and after having a catheter in place for 2 weeks had a removed in the urology office with reassuring postvoid residual. He had been doing well until symptoms started ramping up again a couple weeks ago as stated. He denies any medication or dietary change. His abdominal and back pain seemed to worsen with motion and improves with rest. Related Data Home Medications Medication Instructions Recorded Confirmed adalimumab 40 mg/0.8 mL 1 dose SUBCUT Q2W 05/13/19 02/16/22 subcutaneous pen kit amlodipine 10 mg tablet 10 mg PO DAILY 05/13/19 02/16/22 apremilast 30 mg tablet 30 mg PO BID 05/13/19 02/16/22 blood sugar diagnostic 05/13/19 02/16/22 halobetasol propionate 0.05 % 1 applic topical DIRECTED 05/13/19 02/16/22 topical ointment lisinopril 10 mg tablet 10 mg PO DAILY 05/13/19 02/16/22 metformin 500 mg tablet 1,000 mg PO BID 05/13/19 02/16/22 aspirin 81 mg tablet,delayed 81 mg PO DAILY 12/26/21 02/16/22 release (Adult Aspirin Regimen) rosuvastatin 40 mg tablet 40 mg PO DAILY 12/26/21 02/16/22 Previous Rx's Medication Instructions Recorded phenazopyridine 200 mg tablet 200 mg PO TID PRN pain #30 tabs 01/26/22 (Pyridium) ciprofloxacin HCl 500 mg tablet 500 mg PO BID #7 tabs 02/16/22 (Cipro) oxybutynin chloride 5 mg tablet 5 mg PO BID-TID PRN bladder spasms 02/16/22 #30 tabs ciprofloxacin HCl 500 mg tablet 500 mg PO BID #20 tabs 02/21/22 (Cipro) Allergies Allergy/AdvReac Type Severity Reaction Status Date / Time Sulfa (Sulfonamide Allergy Hives Verified 02/16/22 09:54 Antibiotics) atenolol AdvReac Intermediate Rash Verified 02/16/22 09:54 Review of Systems Review of Systems Narrative: GENERAL: See HPI HEENT: Denies sinus pain, ear pain, sore throat, difficulty swallowing, dizziness. RESPIRATORY: Denies dyspnea, cough, wheezing, hemoptysis, sputum. CARDIOVASCULAR: Denies chest pain, palpitations, orthopnea, edema, GASTROINTESTINAL: See HPI : See HPI MUSCULOSKELETAL: denies weakness, joint pain, or bony pain SKIN: Denies rash, skin lesions, or other NEUROLOGIC: Denies weakness, headache, numbness, change in speech, confusion, seizures, incoordination. PSYCHIATRIC: No concerning psychosocial issues. 12 point review of systems is negative except for those stated above Patient History Medical History Bladder mass Coronary artery disease Diabetes mellitus Gross hematuria HTN (hypertension) Kidney disease Kidney stones Psoriasis Urinary bladder cancer Surgical History H/O laparoscopy History of heart artery stent (~02/06/19) Hx of hernia repair Family History Mother CVA (cerebral vascular accident) Hypertension UTI (urinary tract infection) CAD (coronary artery disease) Sister Diabetes mellitus Gout Bilateral kidney stones Social History marital status: number of children: 0 household members: none lives independently: Yes Smoking Status: Former smoker alcohol intake: current Smoking Status: Former smoker alcohol intake frequency: a few times a month Substance Use Type: marijuana Exam Narrative Exam Narrative: GENERAL: [71] year old patient appears stated age. Well-developed patient, in mild distress. Obviously uncomfortable HEAD: Atraumatic. Normocephalic. EYES: Pupils equal round and reactive. Extraocular motions intact. No scleral icterus. No injection or drainage. ENT: Nose without bleeding, purulent drainage. Throat without erythema, tonsillar hypertrophy or exudate. Airway patent. NECK: Trachea midline. Non tender CARDIOVASCULAR: Regular rate and rhythm without murmurs, gallops, or rubs. RESPIRATORY: Clear to auscultation. Breath sounds equal bilaterally. No wheezes, rales, or rhonchi. GASTROINTESTINAL: Abdomen moderately firm, generalized tenderness and decreased bowel sounds EXTREMITIES: No edema or joint tenderness. BACK: Nontender without deformity or crepitance. No flank tenderness. NEURO: AOx3. SKIN: No rash or erythema of visible areas Initial Vital Signs Initial Vital Signs: Vital Signs Temperature 98.6 F 05/06/22 22:40 Pulse Rate 85 05/06/22 22:40 Respiratory Rate 22 05/06/22 22:40 Blood Pressure 194/89 H 05/06/22 22:40 Pulse Oximetry 94 05/06/22 22:40 Oxygen Delivery Method 05/06/22 22:40 Course Orders Ordered: Discontinued Medications Sodium Chloride (Normal Saline 0.9%) 1,000 mls @ 1,000 mls/hr IV BOLUS ONE Stop: 05/07/22 04:04 Last Infusion: 05/07/22 05:02 Dose: 0 mls/hr Documented By: Admin: 05/07/22 03:20 Dose: 1,000 mls/hr Documented By: CAT Lidocaine HCl (Lidocaine 2% (Glydo) 6 Ml Gel) 6 ml TOP NOW ONE Stop: 05/07/22 00:36 Last Admin: 05/07/22 01:13 Dose: 6 ml Documented By: OMARI Reevaluation(s) Reevaluation #1: Preston catheter placed and about 200 mL of urine out, patient has minimal change in symptoms Vital Signs Vital signs: Vital Signs - 8 hr 05/06/22 22:40 Temperature 98.6 F Pulse Rate 85 Respiratory Rate 22 Blood Pressure 194/89 H Pulse Oximetry 94 Oxygen Delivery Method Room Air MDM - Male Genitourinary Lab Data Result diagrams: 05/06/22 23:20 05/06/22 23:00 Labs: Lab Results 05/06/22 05/06/22 05/06/22 Range/Units 23:00 23:12 23:20 WBC 8.7 (4.5-11.0) X10^3/uL RBC 5.05 (4.5-5.9) X10^6/uL Hgb 14.0 (13.5-17.5) g/dL Hct 42.2 (41-53) % MCV 83.5 (80-100) fL MCH 27.8 (26-34) PG MCHC 33.3 (30-36) % RDW 14.6 (11.6-14.8) % Plt Count 367 (150-400) X10^3/uL Neut % (Auto) 73.0 (50-75) % Lymph % (Auto) 9.9 L (25-40) % [place] % (Auto) 13.0 (3-14) % Eos % (Auto) 2.3 (2-4) % Baso % (Auto) 1.8 (0-2) % Neut # (Auto) 6300 (7438-7142) /uL Lymph # (Auto) 900 L (3625-1200) /uL [place] # (Auto) 1100 H (0-900) /uL Eos # (Auto) 200 (0-450) /uL Baso # (Auto) 200 H (0-100) /uL Sodium 134 L (137-145) mmol/L Potassium 4.3 (3.4-5.1) mmol/L Chloride 102 (98-107) mmol/L Carbon Dioxide 22 (22-32) mmol/L BUN 22 H (9-20) mg/dL Creatinine 1.15 (0.66-1.25) mg/dL Estimated GFR > 60 (>60) mL/min BUN/Creatinine Ratio 19.1 (6-22) Glucose 143 H (80-110) mg/dL Calcium 8.9 (8.4-10.2) mg/dL Total Bilirubin 0.5 (0.2-1.3) mg/dL AST 31 (17-59) IU/L ALT 24 (<50) IU/L Alkaline Phosphatase 84 (38-126) U/L Total Protein 7.4 (6.3-8.2) g/dL Albumin 4.0 (3.5-5.0) g/dL Globulin 3.4 (1.7-4.1) g/dL Albumin/Globulin Ratio 1.2 (1.0-2.8) Urine Color Urine Appearance Urine pH (4.5-8.0) Ur Specific [place] (1.000-1.035) Urine Protein (Negative) Urine Glucose (UA) (Negative) g/dL Urine Ketones (NEGATIVE) Urine Occult Blood (Negative) Urine Nitrate (Negative) Urine Bilirubin (NEGATIVE) Urine Urobilinogen (0.2) E.U./dL Ur Leukocyte Esterase (NEGATIVE) Urine RBC (0-5/HPF) Urine WBC (0-5/HPF) Ur Squamous Epith Cells (0-5/HPF) Ur Transition Epith Cell (0-5/HPF) Calcium Oxalate Crystal Urine Bacteria (None) Ur Culture Indicated? SARS-CoV-2 (PCR) Negative (Negative) 05/06/22 Range/Units 23:22 WBC (4.5-11.0) X10^3/uL RBC (4.5-5.9) X10^6/uL Hgb (13.5-17.5) g/dL Hct (41-53) % MCV (80-100) fL MCH (26-34) PG MCHC (30-36) % RDW (11.6-14.8) % Plt Count (150-400) X10^3/uL Neut % (Auto) (50-75) % Lymph % (Auto) (25-40) % [place] % (Auto) (3-14) % Eos % (Auto) (2-4) % Baso % (Auto) (0-2) % Neut # (Auto) (3057-3528) /uL Lymph # (Auto) (5557-8600) /uL [place] # (Auto) (0-900) /uL Eos # (Auto) (0-450) /uL Baso # (Auto) (0-100) /uL Sodium (137-145) mmol/L Potassium (3.4-5.1) mmol/L Chloride (98-107) mmol/L Carbon Dioxide (22-32) mmol/L BUN (9-20) mg/dL Creatinine (0.66-1.25) mg/dL Estimated GFR (>60) mL/min BUN/Creatinine Ratio (6-22) Glucose (80-110) mg/dL Calcium (8.4-10.2) mg/dL Total Bilirubin (0.2-1.3) mg/dL AST (17-59) IU/L ALT (<50) IU/L Alkaline Phosphatase (38-126) U/L Total Protein (6.3-8.2) g/dL Albumin (3.5-5.0) g/dL Globulin (1.7-4.1) g/dL Albumin/Globulin Ratio (1.0-2.8) Urine Color Yellow Urine Appearance Clear Urine pH 5.0 (4.5-8.0) Ur Specific [place] 1.010 (1.000-1.035) Urine Protein 2+ H (Negative) Urine Glucose (UA) 2+ H (Negative) g/dL Urine Ketones Trace H (NEGATIVE) Urine Occult Blood 3+ H (Negative) Urine Nitrate Negative (Negative) Urine Bilirubin Negative (NEGATIVE) Urine Urobilinogen 0.2 (0.2) E.U./dL Ur Leukocyte Esterase Negative (NEGATIVE) Urine RBC 5-10/hpf H (0-5/HPF) Urine WBC 0-1/hpf (0-5/HPF) Ur Squamous Epith Cells 0-1 /hpf (0-5/HPF) Ur Transition Epith Cell 0-1/hpf (0-5/HPF) Calcium Oxalate Crystal Occasional H Urine Bacteria Occasional (0-1) (None) Ur Culture Indicated? Cult not indicated SARS-CoV-2 (PCR) (Negative) Discharge Plan Departure Patient Disposition: Home Clinical Impression: Gross hematuria, Mass of urinary bladder, Constipation Instructions: DI for Constipation, DI for Hematuria Activity Restrictions/Additional Instructions: *You have been diagnosed with [hematuria, bladder mass, pulmonary nodules concerning for metastatic disease] *What to do: *Please continue to take your regular medications as directed. [ ] New medication prescriptions sent to your pharmacy: [ ] [ ] New medication written as a paper prescription [ x] No new medications given *Please follow up with your primary care provider in 2-3 days, call for an appointment. Let them know you were seen in the Emergency Department and that we ask that you be seen in follow up. We will electronically transmit a record of today's note if your PCP is in our system As we discussed, please follow-up with your urologist, call tomorrow morning to secure a close appointment Also, given evidence that your cancer is advancing please contact Dr. Morin with oncology, let his office know you were seen in the Emergency Department and that we need you to be seen in close follow up *If you do not have a primary care provider please contact the [facility] Resource line at [phone]. They will ask some questions about your medical history and help get you set up with a doctor in the community. *Return to Emergency Department if you should have any new, worsening or concerning symptoms, such as [fever greater than 101 F, shaking chills, worsening pain, persistent vomiting or other bothersome symptoms] Prescriptions: No Action phenazopyridine [Pyridium] 200 mg tablet 200 mg PO TID PRN (Reason: pain) Qty: 30 0RF ciprofloxacin HCl [Cipro] 500 mg tablet 500 mg PO BID Qty: 20 0RF metformin 500 mg tablet 1,000 mg PO BID (DME) blood sugar diagnostic strip amlodipine 10 mg tablet 10 mg PO DAILY halobetasol propionate 0.05 % ointment 1 applic topical DIRECTED lisinopril 10 mg tablet 10 mg PO DAILY adalimumab 40 mg/0.8 mL pen injector kit 1 dose subcut Q2W apremilast 30 mg tablet 30 mg PO BID ciprofloxacin HCl [Cipro] 500 mg tablet 500 mg PO BID Qty: 7 0RF oxybutynin chloride 5 mg tablet 5 mg PO BID-TID PRN (Reason: bladder spasms) Qty: 30 3RF aspirin [Adult Aspirin Regimen] 81 mg tablet,delayed release (DR/EC) 81 mg PO DAILY rosuvastatin 40 mg tablet 40 mg PO DAILY Referrals: Carole Thomas MD [Primary Care Provider] - Brayan Naidu MD [Physician] - Aleks Morin MD [Physician] - Visit Report Forms: Patient Portal/API
[2022-05-06 23:24] LABS: Alanine Aminotransferase 24 IU/L (<50); Albumin Globulin Ratio 1.2 (1.0-2.8); Alkaline Phosphatase 84 U/L (38-126); Aspartate Aminotransferase 31 IU/L (17-59); BUN Creatinine Ratio 19.1 (6-22); Bilirubin Total 0.5 mg/dL (0.2-1.3); Blood Urea Nitrogen 22 mg/dL (9-20); Calcium 8.9 mg/dL (8.4-10.2); Carbon Dioxide 22 mmol/L (22-32); Chloride 102 mmol/L (98-107); Estimated Glomerular Filt Rate > 60 mL/min (>60); Globulin 3.4 g/dL (1.7-4.1); Glucose 143 mg/dL (80-110); HEMOLYSIS 45 (0-50); Potassium 4.3 mmol/L (3.4-5.1); Sodium 134 mmol/L (137-145); Total Protein 7.4 g/dL (6.3-8.2)
--- NOTE | 2022-05-06 23:24 | PC.NURSE ---
Pt reports lower abdominal pain that wraps around to his lower back for the past 4 weeks. Pt has recent hx of bladder cancer and surgery. Reports nausea, some abdominal distension, diarrhea, voiding in small amounts every 2-3 hours, and SOB when laying down. Pt reports not voiding a normal amount for the last 3-4 days. BS revealed 65. Pt voided in urinal about 25 after scan.
[2022-05-06 23:27] LABS: Appearance Urine UA CLEAR; Bilirubin Urine UA NEGATIVE (NEGATIVE); Color Urine UA YELLOW; Glucose Urine UA 2+ g/dL (Negative); Ketones Urine UA TRACE (NEGATIVE); Leukocyte Esterase Urine UA NEGATIVE (NEGATIVE); Nitrite Urine UA NEGATIVE (Negative); Occult Blood Urine UA 3+ (Negative); Protein Urine UA 2+ (Negative); Urobilinogen Urine UA 0.2 E.U./dL (0.2)
[2022-05-06 23:34] LABS: Calcium Oxalate Crystals Urine Occasional; RBC Urine 5-10/HPF (0-5/HPF); Squamous Epithelial Cell Urine 0-1 /HPF (0-5/HPF); Transitional Epi Cells Urine 0-1/HPF (0-5/HPF); WBC Urine 0-1/HPF (0-5/HPF)
[2022-05-06 23:35] LABS: Bacteria Urine Occasional (0-1); Culture Indicated Urine Cult Not Indicated
[2022-05-06 23:38] LABS: COVID19 -Nasal RAPID Negative (Negative)
[2022-05-07] MEDS: LIDOCAINE 2% (GLYDO) 6 ML GEL TOP (01:13)
--- NOTE | 2022-05-07 02:14 | DI.RAD.S_ITS ---
PROCEDURE: XR ACUTE ABDOMEN SERIES INDICATIONS: abdominal pain, decreased BMs TECHNIQUE: One view chest and two views of the abdomen were acquired. COMPARISON: None. FINDINGS: Surgical changes and devices: None. Chest: Diffuse reticulation throughout both lungs. No dense consolidations, pleural effusion, or pneumothorax. Cardiomediastinal contour and central vessels appear normal. Abdomen: Several air-fluid levels in mainly nondilated bowel throughout the abdomen. A single prominent bowel loop measures up to 3.8 cm in diameter. No free intraperitoneal air. Prominent left abdominal calcifications, the largest measuring 1.5 cm. Organ shadows are otherwise normal. Bones: No suspicious bony lesions. IMPRESSION: 1. Acute air-fluid levels throughout the bowel on the upright abdominal imaging. Differential diagnosis includes ileus and early bowel obstruction. 2. Diffuse interstitial thickening throughout the lungs may indicate interstitial pneumonitis or chronic interstitial lung disease. 3. Probable left-sided nephrolithiasis. 4. Final interpretation is concordant with preliminary report. Dictated by: Kayli Mckenzie M.D. on 05/07/2022 at 7:32 Approved by: Kayli Mckenzie M.D. on 05/07/2022 at 7:35
--- NOTE | 2022-05-07 03:04 | DI.CT.S_ITS ---
PROCEDURE: CT ABDOMEN PELVIS W CON INDICATIONS: abdominal pain, decreased BM, airfluid levels on Xray TECHNIQUE: After the administration of intravenous contrast, axial sections acquired from the lung bases to the pubic symphysis. Coronal and sagittal reformats were performed. For radiation dose reduction, the following was used: automated exposure control, adjustment of mA and/or kV according to patient size. COMPARISON: [facility], CT, CT ABDOMEN PELVIS W CON, 02/05/2022, 22:19. FINDINGS: Image quality: Excellent. Lung bases: Interval development of innumerable bilateral micro nodules and small pulmonary nodules measuring up to 5 mm throughout the lung bases. There is diffuse interstitial thickening. Small left periesophageal lymph node. Heart: Coronary artery calcification. Normal size heart. ABDOMEN: Liver: Interval development of innumerable low-density rounded lesions throughout both lobes of the liver. Gallbladder: Cholelithiasis. Biliary ducts: Nondilated. Pancreas: Normal. Spleen: Normal. Adrenal Glands: No nodules. Kidneys and Ureters: Mild left-sided hydronephrosis, increased compared to the prior study. There is a staghorn calculus in the left lower pole measuring 1.6 cm and other smaller adjacent calculi. Left upper pole renal cyst. Mild left hydroureter to the level of the urinary bladder. Normal right kidney without stones or hydronephrosis. Mild thickening of the left pararenal and periureteric fascia. Stomach and Bowel: There are signs of stasis in nondilated small bowel loops. Normal to slightly increased quantity of solid stool in the colon. No evidence of bowel obstruction. Peritoneum: No abnormal intraperitoneal fluid. No free air. Ventral Wall: No hernias. Abdominal Nodes: There is mild periaortic fat stranding and single prominent lymph node in the anterior periaortic retroperitoneum measuring 1.1 cm. Vessels: Aorta and inferior vena cava are normal in size. Heavy abdominal aortic calcification. No aneurysm. PELVIS: Pelvic Organs: Enlarged prostate gland. Bladder: Preston catheter in the urinary bladder. Partially decompressed urinary bladder with heterogeneous thickening of the anterior at left bladder wall consistent with patient's known bladder neoplasm. This thickening encompasses the left UVJ and is likely partially obstructing. Pelvic Nodes: Several small pelvic sidewall lymph nodes bilaterally. These extend into the external iliac chain region. Miscellaneous: No hernias are seen. Bones: Unremarkable. No suspicious bone lesions. IMPRESSION: 1. Interval development findings suspicious for metastatic disease involving the lower lung jack and liver. 2. Bladder mass likely causing partial left UVJ obstruction and left hydronephrosis. 3. Pelvic and retroperitoneal adenopathy, slightly increased. 4. Increased quantity of solid stool. No bowel obstruction. 5. Nonobstructing left nephrolithiasis. 6. Cholelithiasis. 7. Final interpretation is concordant with preliminary report. Dictated by: Kayli Mckenzie M.D. on 05/07/2022 at 7:35 Approved by: Kayli Mckenzie M.D. on 05/07/2022 at 7:49
[2022-05-07] MEDS: SODIUM CHLORIDE 0.9% 1,000 ML 1000 ML IV (03:20)
--- NOTE | 2022-05-07 04:35 | PC.NURSE ---
Pt requested removal of cath, Dr Archer agreed and Pt informed that if he is unable to void again, a 3 way cath will need to be placed, Pt is agreeable. Cath removed at this time.
[2022-05-07 05:09] LABS: Add Manual Diff / Slide Review NO; Basophils Absolute Auto 200 /uL (0-100); Basophils Percent Auto 1.8 % (0-2); Eosinophils Absolute Auto 200 /uL (0-450); Eosinophils Percent Auto 2.3 % (2-4); Hematocrit 42.2 % (41-53); Lymphocytes Absolute Auto 900 /uL (1100-4500); Lymphocytes Percent Auto 9.9 % (25-40); Mean Corpuscular HGB Conc 33.3 % (30-36); Mean Corpuscular Hemoglobin 27.8 PG (26-34); Mean Corpuscular Volume 83.5 fL (80-100); Monocytes Absolute Auto 1100 /uL (0-900); Neutrophils Absolute Auto 6300 /uL (1500-7000); Platelet Count 367 X10^3/uL (150-400); Red Blood Cell Count 5.05 X10^6/uL (4.5-5.9); Red Cell Distribution Width 14.6 % (11.6-14.8); White Blood Cell Count 8.7 X10^3/uL (4.5-11.0)
[2022-05-07 07:01] VITALS: BP 183/88; PULSE 87; RESP 20; O2SAT 96
== END 2022-05-07 07:04 | disposition home or self-care (01) ==
PROVIDERS: Emergency Provider Emergency Medicine; PCP Internal Medicine
DX: R31.0 Gross hematuria (principal); K59.00 Constipation, unspecified; N32.89 Other specified disorders of bladder; R10.84 Generalized abdominal pain; Z20.822 Contact with and (suspected) exposure to COVID-19
CPT/HCPCS: 51798; 74022; 74177; 80053; 81001; 85025; 87635; 96360; 96361; 99284; C9803; Q9967

== ENCOUNTER → 2022-05-11 13:32 | Outpatient (CLI) | payer MEDICARE, OTHER, SELFPAY ==
[2022-05-11 14:11] LABS: COVID19 -Nasal RAPID Negative (Negative)
== END ==
PROVIDERS: PCP Internal Medicine; Visit Provider Urology
DX: C67.2 Malignant neoplasm of lateral wall of bladder (principal); K59.00 Constipation, unspecified; N20.0 Calculus of kidney; R63.4 Abnormal weight loss; Z20.822 Contact with and (suspected) exposure to COVID-19
CPT/HCPCS: 81002; 87635; 99214

== ENCOUNTER 2022-05-25 13:35 | Emergency (ER) | payer MEDICARE, OTHER, SELFPAY ==
[2022-05-25] VITALS (7 sets, daily range): BP systolic 151–180; BP diastolic 81–97; PULSE 78–96; RESP 17–23; TEMP 37–37.2; O2SAT 92–96; BMI 24.7
--- NOTE | 2022-05-25 13:55 | DI.RAD.S_ITS ---
PROCEDURE: XR CHEST 2V INDICATIONS: shortness of breath TECHNIQUE: 2 views of the chest were acquired. COMPARISON: [facility], CT, CT ABDOMEN PELVIS W CON, 02/05/2022, 22:19. [facility], CT, CT ABDOMEN PELVIS W CON, 05/07/2022, 3:18. [facility], CR, XR CHEST 1V, 05/13/2019, 14:21. FINDINGS: Surgical changes and devices: None. Lungs and pleura: There are innumerable pulmonary nodules versus nodular infiltrates. No pleural effusions or pneumothorax. Mediastinum: Mediastinal contours are normal. Heart size is normal. Bones and chest wall: No suspicious bony abnormalities. Soft tissues appear unremarkable. IMPRESSION: Innumerable pulmonary nodules versus nodular infiltrates bilaterally. Differential diagnoses are metastatic disease versus atypical infections. Recommend clinical correlation. Dictated by: Trini Jackson M.D. on 05/25/2022 at 14:54 Approved by: Trini Jackson M.D. on 05/25/2022 at 14:58
[2022-05-25 14:23] LABS: Add Manual Diff / Slide Review NO; Basophils Absolute Auto 100 /uL (0-100); Basophils Percent Auto 0.7 % (0-2); Eosinophils Absolute Auto 200 /uL (0-450); Eosinophils Percent Auto 2.6 % (2-4); Hematocrit 42.8 % (41-53); Hemoglobin 14.4 g/dL (13.5-17.5); Lymphocytes Absolute Auto 600 /uL (1100-4500); Lymphocytes Percent Auto 7.1 % (25-40); Mean Corpuscular HGB Conc 33.6 % (30-36); Mean Corpuscular Volume 83.3 fL (80-100); Monocytes Absolute Auto 900 /uL (0-900); Monocytes Percent Auto 9.6 % (3-14); Neutrophils Absolute Auto 7100 /uL (1500-7000); Platelet Count 317 X10^3/uL (150-400); Red Blood Cell Count 5.15 X10^6/uL (4.5-5.9); Red Cell Distribution Width 15.3 % (11.6-14.8); White Blood Cell Count 8.9 X10^3/uL (4.5-11.0)
--- NOTE | 2022-05-25 14:25 | DI.CT.S_ITS ---
PROCEDURE: CT HEAD/BRAIN WO CON INDICATIONS: Dizziness. Short of breath 2 weeks, new dx bladder cancer TECHNIQUE: Noncontrast 4.5 mm thick angled axial sections acquired from the foramen magnum to the vertex, with coronal and sagittal reformats. For radiation dose reduction, the following was used: automated exposure control, adjustment of mA and/or kV according to patient size. COMPARISON: [facility], CR, XR CHEST 2V, 05/25/2022, 14:08. FINDINGS: Image quality: Excellent. CSF spaces: Basal cisterns are patent. No extra-axial fluid collections. The ventricles are symmetric in size and shape. Brain: No intracranial bleeds or masses. There is cerebral volume loss for age, with resultant ventricular and sulcal prominence. There are periventricular and deep white matter chronic small vessel ischemic changes. There is intracranial internal carotid artery atherosclerosis. Skull and face: Potential mild scalp hematoma can be seen posteriorly and on the right, as on series 2, image 20. There is no associated calvarial fracture. Calvarium and visualized facial bones appear intact, without suspicious lesions. Sinuses: Visualized sinuses and mastoids are clear. IMPRESSION: Unremarkable intracranial study for age. Dictated by: Felipe Nunn M.D. on 05/25/2022 at 13:43 Approved by: Felipe Nunn M.D. on 05/25/2022 at 13:44
[2022-05-25 14:29] LABS: Alanine Aminotransferase 25 IU/L (<50); Albumin 3.8 g/dL (3.5-5.0); Albumin Globulin Ratio 1.1 (1.0-2.8); Alkaline Phosphatase 155 U/L (38-126); Aspartate Aminotransferase 28 IU/L (17-59); Bilirubin Total 0.5 mg/dL (0.2-1.3); Blood Urea Nitrogen 28 mg/dL (9-20); Calcium 9.1 mg/dL (8.4-10.2); Carbon Dioxide 26 mmol/L (22-32); Chloride 97 mmol/L (98-107); Estimated Glomerular Filt Rate > 60 mL/min (>60); Globulin 3.5 g/dL (1.7-4.1); Glucose 169 mg/dL (80-110); HEMOLYSIS < 15 (0-50); Potassium 4.6 mmol/L (3.4-5.1); Sodium 131 mmol/L (137-145); Total Protein 7.3 g/dL (6.3-8.2)
[2022-05-25 14:32] LABS: Lactate (Lactic Acid) 1.4 mmol/L (0.7-2.1)
[2022-05-25 14:34] LABS: COVID19 -Nasal RAPID Negative (Negative)
[2022-05-25 14:42] LABS: Prothrombin Time 11.7 SECONDS (10.1-12.7)
[2022-05-25 14:45] LABS: D Dimer 811 ng/mL (<230)
[2022-05-25 15:16] LABS: NT-proBNP (BNP-Adult 18+) 91 pg/mL (<125)
[2022-05-25 15:20] LABS: Troponin I < 0.012 ng/mL (0.01-0.034)
--- NOTE | 2022-05-25 15:24 | ED_ITS ---
HPI - Dizziness General Chief Complaint: Dizziness Stated Complaint: Chest pain- brought by Urology Time Seen by Provider: 05/25/22 14:23 Source: patient Mode of arrival: Wheelchair History of Present Illness HPI Narrative: 71M former smoker with history of bladder cancer, CAD, DM, and kidney stones presents with a chief complaint of dizziness and shortness of breath for upwards of the past 2 weeks, he had been at the urology clinic and when they heard about these symptoms they sent him here for evaluation and treatment. He is not yet had any radiation or chemotherapy for his bladder cancer but does have an upcoming procedure scheduled and plans to see his oncologist on Sunday. He denies any vertiginous symptoms, no blurred vision or trouble with speech. He is had no recent trauma or head injury and denies any neck pain or the use of blood thinners. He denies any chest pain but has become increasingly short of breath over the past few weeks. He is had the occasional dry cough but denies any off colored or bloody sputum. Related Data Home Medications Medication Instructions Recorded Confirmed adalimumab 40 mg/0.8 mL 1 dose SUBCUT Q2W 05/13/19 05/25/22 subcutaneous pen kit amlodipine 10 mg tablet 10 mg PO DAILY 05/13/19 05/25/22 apremilast 30 mg tablet 30 mg PO BID 05/13/19 05/25/22 blood sugar diagnostic 05/13/19 05/25/22 halobetasol propionate 0.05 % 1 applic topical DIRECTED 05/13/19 05/25/22 topical ointment lisinopril 10 mg tablet 10 mg PO DAILY 05/13/19 05/25/22 metformin 500 mg tablet 1,000 mg PO BID 05/13/19 05/25/22 aspirin 81 mg tablet,delayed 81 mg PO DAILY 12/26/21 05/25/22 release (Adult Aspirin Regimen) rosuvastatin 40 mg tablet 40 mg PO DAILY 12/26/21 05/25/22 Previous Rx's Medication Instructions Recorded phenazopyridine 200 mg tablet 200 mg PO TID PRN pain #30 tabs 01/26/22 (Pyridium) tamsulosin 0.4 mg capsule 0.4 mg PO BEDTIME #30 caps 05/16/22 Allergies Allergy/AdvReac Type Severity Reaction Status Date / Time Sulfa (Sulfonamide Allergy Hives Verified 05/25/22 13:27 Antibiotics) atenolol AdvReac Intermediate Rash Verified 05/25/22 13:27 Review of Systems Review of Systems Narrative: GENERAL: See HPI HEENT: Denies sinus pain, ear pain, sore throat, difficulty swallowing, dizziness. RESPIRATORY: See HPI CARDIOVASCULAR: Denies chest pain, palpitations, orthopnea, edema, GASTROINTESTINAL: Denies nausea, vomiting, abdominal pain, diarrhea, constipation, melena. : Denies dysuria, frequency, incontinence, hematuria, urinary retention. MUSCULOSKELETAL: denies weakness, joint pain, or bony pain SKIN: Denies rash, skin lesions, or other NEUROLOGIC: see HPI PSYCHIATRIC: No concerning psychosocial issues. 12 point review of systems is negative except for those stated above Patient History Medical History Bladder mass Coronary artery disease Diabetes mellitus Gross hematuria HLD (hyperlipidemia) HTN (hypertension) Kidney disease Kidney stones Psoriasis Urinary bladder cancer Surgical History H/O laparoscopy History of heart artery stent (~02/06/19) History of transurethral destruction of bladder lesion (01/26/22) Hx of hernia repair Family History Mother CVA (cerebral vascular accident) Hypertension UTI (urinary tract infection) CAD (coronary artery disease) Sister Diabetes mellitus Gout Bilateral kidney stones Social History marital status: number of children: 0 household members: none lives independently: Yes Smoking Status: Former smoker alcohol intake: current Smoking Status: Former smoker alcohol intake frequency: a few times a month Substance Use Type: marijuana Exam Narrative Exam Narrative: GENERAL: [71] year old patient appears stated age. Well-developed patient, in mild distress. GCS 15 HEAD: Atraumatic. Normocephalic. EYES: Pupils equal round and reactive. Extraocular motions intact. No scleral icterus. No injection or drainage. ENT: Nose without bleeding, purulent drainage. Throat without erythema, tonsillar hypertrophy or exudate. Airway patent. NECK: Trachea midline. Non tender CARDIOVASCULAR: Regular rate and rhythm without murmurs, gallops, or rubs. RESPIRATORY: Decreased breath sounds throughout with prolonged expiratory phase, no increased work of breathing, rales, rhonchi or wheeze GASTROINTESTINAL: Abdomen soft, non-tender, nondistended. EXTREMITIES: No edema or joint tenderness. BACK: Nontender without deformity or crepitance. No flank tenderness. NEURO: AOx3. SKIN: No rash or erythema of visible areas NIH Stroke Scale 1a. LOC: Patient is alert and keenly responsive (0) 1b. LOC Questions: Patient answers both LOC questions accurately (0) 1c. LOC Commands: Patient performs both tasks correctly (0) 2. Best Gaze: Normal (0) 3. Visual: No visual loss (0) 4. Facial palsy: Normal symmetrical movements (0) 5. Motor arm: No drift (0) 6. Motor leg: No drift (0) 7. Limb ataxia: Absent (0) 8. Sensory: Normal (0) 9. Best language: No aphasia; normal (0) 10. Dysarthria: Normal (0) 11. Extinction and inattention: No abnormality (0) NIHSS: 0 Initial Vital Signs Initial Vital Signs: Vital Signs Temperature 98.9 F 05/25/22 13:48 Pulse Rate 96 H 05/25/22 13:48 Respiratory Rate 18 05/25/22 13:48 Blood Pressure 151/81 H 05/25/22 13:48 Pulse Oximetry 94 05/25/22 13:48 Oxygen Delivery Method 05/25/22 13:48 Course Orders Ordered: ED Orders 05/25/22 13:55 XR chest 2V Stat EKG-12 Lead Stat Measure peak expiratory flow ONCE RT Consult Eval and Treat Now 05/25/22 14:00 BNP [NT-proBNP (BNP-Adult 18+)] Stat COVID19 -Nasal RAPID/Pre-Proc Stat Complete Blood Count AUTO DIFF Stat Comprehensive Metabolic Panel Stat D Dimer Stat Lactate (Lactic Acid) Stat Prothrombin Time INR Stat Troponin I Stat 05/25/22 14:25 CT head/brain wo con Stat 05/25/22 15:24 CT angio chest PE protocol Stat Vital Signs Vital signs: Vital Signs - 8 hr 05/25/22 13:48 Temperature 98.9 F Pulse Rate 96 H Respiratory Rate 18 Blood Pressure 151/81 H Pulse Oximetry 94 Oxygen Delivery Method Room Air MDM - Dizziness Lab Data Result diagrams: 05/25/22 14:00 05/25/22 14:00 Labs: Lab Results 05/25/22 05/25/22 05/25/22 Range/Units 14:00 14:00 14:00 WBC 8.9 (4.5-11.0) X10^3/uL RBC 5.15 (4.5-5.9) X10^6/uL Hgb 14.4 (13.5-17.5) g/dL Hct 42.8 (41-53) % MCV 83.3 (80-100) fL MCH 28.0 (26-34) PG MCHC 33.6 (30-36) % RDW 15.3 H (11.6-14.8) % Plt Count 317 (150-400) X10^3/uL Neut % (Auto) 80.0 H (50-75) % Lymph % (Auto) 7.1 L (25-40) % [place] % (Auto) 9.6 (3-14) % Eos % (Auto) 2.6 (2-4) % Baso % (Auto) 0.7 (0-2) % Neut # (Auto) 7100 H (0662-0624) /uL Lymph # (Auto) 600 L (9535-6801) /uL [place] # (Auto) 900 (0-900) /uL Eos # (Auto) 200 (0-450) /uL Baso # (Auto) 100 (0-100) /uL PT (10.1-12.7) SECONDS INR (0.9-1.3) D-Dimer (<230) ng/mL Sodium 131 L (137-145) mmol/L Potassium 4.6 (3.4-5.1) mmol/L Chloride 97 L (98-107) mmol/L Carbon Dioxide 26 (22-32) mmol/L BUN 28 H (9-20) mg/dL Creatinine 1.22 (0.66-1.25) mg/dL Estimated GFR > 60 (>60) mL/min BUN/Creatinine Ratio 23.0 H (6-22) Glucose 169 H (80-110) mg/dL Lactate 1.4 (0.7-2.1) mmol/L Calcium 9.1 (8.4-10.2) mg/dL Total Bilirubin 0.5 (0.2-1.3) mg/dL AST 28 (17-59) IU/L ALT 25 (<50) IU/L Alkaline Phosphatase 155 H (38-126) U/L Troponin I (0.01-0.034) ng/mL NT-Pro-B Natriuret Pep (<125) pg/mL Total Protein 7.3 (6.3-8.2) g/dL Albumin 3.8 (3.5-5.0) g/dL Globulin 3.5 (1.7-4.1) g/dL Albumin/Globulin Ratio 1.1 (1.0-2.8) SARS-CoV-2 (PCR) (Negative) 05/25/22 05/25/22 05/25/22 Range/Units 14:00 14:00 14:00 WBC (4.5-11.0) X10^3/uL RBC (4.5-5.9) X10^6/uL Hgb (13.5-17.5) g/dL Hct (41-53) % MCV (80-100) fL MCH (26-34) PG MCHC (30-36) % RDW (11.6-14.8) % Plt Count (150-400) X10^3/uL Neut % (Auto) (50-75) % Lymph % (Auto) (25-40) % [place] % (Auto) (3-14) % Eos % (Auto) (2-4) % Baso % (Auto) (0-2) % Neut # (Auto) (5785-5626) /uL Lymph # (Auto) (7229-9618) /uL [place] # (Auto) (0-900) /uL Eos # (Auto) (0-450) /uL Baso # (Auto) (0-100) /uL PT 11.7 (10.1-12.7) SECONDS INR 1.0 (0.9-1.3) D-Dimer 811 H (<230) ng/mL Sodium (137-145) mmol/L Potassium (3.4-5.1) mmol/L Chloride (98-107) mmol/L Carbon Dioxide (22-32) mmol/L BUN (9-20) mg/dL Creatinine (0.66-1.25) mg/dL Estimated GFR (>60) mL/min BUN/Creatinine Ratio (6-22) Glucose (80-110) mg/dL Lactate (0.7-2.1) mmol/L Calcium (8.4-10.2) mg/dL Total Bilirubin (0.2-1.3) mg/dL AST (17-59) IU/L ALT (<50) IU/L Alkaline Phosphatase (38-126) U/L Troponin I (0.01-0.034) ng/mL NT-Pro-B Natriuret Pep 91 (<125) pg/mL Total Protein (6.3-8.2) g/dL Albumin (3.5-5.0) g/dL Globulin (1.7-4.1) g/dL Albumin/Globulin Ratio (1.0-2.8) SARS-CoV-2 (PCR) Negative (Negative) 05/25/22 Range/Units 14:00 WBC (4.5-11.0) X10^3/uL RBC (4.5-5.9) X10^6/uL Hgb (13.5-17.5) g/dL Hct (41-53) % MCV (80-100) fL MCH (26-34) PG MCHC (30-36) % RDW (11.6-14.8) % Plt Count (150-400) X10^3/uL Neut % (Auto) (50-75) % Lymph % (Auto) (25-40) % [place] % (Auto) (3-14) % Eos % (Auto) (2-4) % Baso % (Auto) (0-2) % Neut # (Auto) (4455-0586) /uL Lymph # (Auto) (3072-4509) /uL [place] # (Auto) (0-900) /uL Eos # (Auto) (0-450) /uL Baso # (Auto) (0-100) /uL PT (10.1-12.7) SECONDS INR (0.9-1.3) D-Dimer (<230) ng/mL Sodium (137-145) mmol/L Potassium (3.4-5.1) mmol/L Chloride (98-107) mmol/L Carbon Dioxide (22-32) mmol/L BUN (9-20) mg/dL Creatinine (0.66-1.25) mg/dL Estimated GFR (>60) mL/min BUN/Creatinine Ratio (6-22) Glucose (80-110) mg/dL Lactate (0.7-2.1) mmol/L Calcium (8.4-10.2) mg/dL Total Bilirubin (0.2-1.3) mg/dL AST (17-59) IU/L ALT (<50) IU/L Alkaline Phosphatase (38-126) U/L Troponin I < 0.012 (0.01-0.034) ng/mL NT-Pro-B Natriuret Pep (<125) pg/mL Total Protein (6.3-8.2) g/dL Albumin (3.5-5.0) g/dL Globulin (1.7-4.1) g/dL Albumin/Globulin Ratio (1.0-2.8) SARS-CoV-2 (PCR) (Negative) Imaging Data CT scan - head: Radiologist's Impression: [address] [id number] Scan ReportSigned Patient: Stewart Sanderson CMR#: [id number]: 2Acct:[id number]/Sex: 71 / MDate of Service: 05/25/22Loc: EDAccession Number: [id number] Procedure: CT angio chest PE protocol Ordering Provider: Butch Archer D.O. PROCEDURE: CT ANGIO CHEST PE PROTOCOL INDICATIONS: chest pain, SOB, new cancer, Dimer, abnormal CXR TECHNIQUE: After the administration of intravenous contrast, 2 mm thick sections acquired from the pulmonary apices to the posterior costophrenic angles. 3-dimensional maximum intensity projection (MIP) coronal and sagittal reformats were then acquired through the thorax. For radiation dose reduction, the following was used: automated exposure control, adjustment of mA and/or kV according to patient size. COMPARISON: Located Within [facility], CT, CT ABDOMEN PELVIS W CON, 02/05/2022, 22:19. Located Within [facility], CT, CT ABDOMEN PELVIS W CON, 05/07/2022, 3:18. Located Within [facility], CR, XR CHEST 2V, 05/25/2022, 14:08. FINDINGS: Image quality: Excellent. Pulmonary arteries: Pulmonary arteries are normal in size, and demonstrate no intraluminal filling defects to suggest central pulmonary embolism. Lungs and pleura: There are innumerable pulmonary nodules bilaterally highly suspicious for pulmonary metastases. There is intralobular and interlobular septal thickening, which may be secondary to lymphangitic carcinomatosis. Small pleural effusions are present bilaterally. No pneumothorax. Central and peripheral airways are patent. Mediastinum: Heart size is normal, without pericardial effusion. There is mild mediastinal or hilar adenopathy, suspicious for bubba metastases. For example, there is a 1.2 cm right paratracheal lymph node. A 1.0 x 1.5 cm AP window lymph node is identified. There is a 1.7 cm subcarinal lymph node. A 1.4 cm right hilar lymph node is noted. Thoracic aorta is normal in caliber and enhancement. Esophagus is normal in caliber, without hiatal hernia. Bones and chest wall: No suspicious bony lesions. There is an intra osseous hemangioma in L1. Ribs and thoracic spine appear intact throughout. Thyroid gland is normal. No axillary or supraclavicular adenopathy. Abdomen: There are gallstones. Mild left hydronephrosis is present, unchanged compared to 05/07/2022. There is a 1.8 cm exophytic cortical nodule in the superior pole of left kidney, most likely a cyst. Bilateral adrenal thickening. IMPRESSION: 1. No evidence for pulmonary embolism. 2. Innumerable pulmonary nodules bilaterally consistent with pulmonary metastases. Intralobular and interlobular septal thickening could be secondary to lymphangitic carcinomatosis. 3. Mediastinal and hilar lymphadenopathy consistent with bubba metastasis. 4. Small pleural effusions bilaterally. 5. Mild left hydronephrosis, unchanged. 6. Cholelithiasis. The result was discussed with Dr. Archer. Dictated by: Trini Jackson M.D. on 05/25/2022 at 16:00 Approved by: Trini Jackson M.D. on 05/25/2022 at 16:21 CT scan - chest: Radiologist's Impression: [address] [id number] Scan ReportSigned Patient: Stewart Sanderson CMR#: [id number]: 2Acct:[id number]/Sex: 71 / MDate of Service: 05/25/22Loc: EDAccession Number: [id number] Procedure: CT angio chest PE protocol Ordering Provider: Cameron,Butch D.O. PROCEDURE: CT ANGIO CHEST PE PROTOCOL INDICATIONS: chest pain, SOB, new cancer, Dimer, abnormal CXR TECHNIQUE: After the administration of intravenous contrast, 2 mm thick sections acquired from the pulmonary apices to the posterior costophrenic angles. 3-dimensional maximum intensity projection (MIP) coronal and sagittal reformats were then acquired through the thorax. For radiation dose reduction, the following was used: automated exposure control, adjustment of mA and/or kV according to patient size. COMPARISON: Located Within [facility], CT, CT ABDOMEN PELVIS W CON, 02/05/2022, 22:19. Located Within [facility], CT, CT ABDOMEN PELVIS W CON, 05/07/2022, 3:18. Located Within [facility], CR, XR CHEST 2V, 05/25/2022, 14:08. FINDINGS: Image quality: Excellent. Pulmonary arteries: Pulmonary arteries are normal in size, and demonstrate no intraluminal filling defects to suggest central pulmonary embolism. Lungs and pleura: There are innumerable pulmonary nodules bilaterally highly suspicious for pulmonary metastases. There is intralobular and interlobular septal thickening, which may be secondary to lymphangitic carcinomatosis. Small pleural effusions are present bilaterally. No pneumothorax. Central and peripheral airways are patent. Mediastinum: Heart size is normal, without pericardial effusion. There is mild mediastinal or hilar adenopathy, suspicious for bubba metastases. For example, there is a 1.2 cm right paratracheal lymph node. A 1.0 x 1.5 cm AP window lymph node is identified. There is a 1.7 cm subcarinal lymph node. A 1.4 cm right hilar lymph node is noted. Thoracic aorta is normal in caliber and enhancement. Esophagus is normal in ca liber, without hiatal hernia. Bones and chest wall: No suspicious bony lesions. There is an intra osseous hemangioma in L1. Ribs and thoracic spine appear intact throughout. Thyroid gland is no rmal. No axillary or supraclavicular adenopathy. Abdomen: There are gallstones. Mild left hydronephrosis is present, unchanged compared to 05/07/2022. There is a 1.8 cm exophytic cortical nodule in the superior pole of left kidney, most likely a cyst. Bilateral adrenal thickening. IMPRESSION: 1. No evidence for pulmonary embolism. 2. Innumerable pulmonary nodules bilaterally consistent with pulmonary metastases. Intralobular and interlobular septal thickening could be secondary to lymphangitic carcinomatosis. 3. Mediastinal and hilar lymphadenopathy consistent with bubba metastasis. 4. Small pleural effusions bilaterally. 5. Mild left hydronephrosis, unchanged. 6. Cholelithiasis. The result was discussed with Dr. Archer. Dictated by: Trini Jackson M.D. on 05/25/2022 at 16:00 Approved by: Trini Jackson M.D. on 05/25/2022 at 16:21 Discharge Plan Departure Patient Disposition: Home Clinical Impression: Bladder cancer, Lung metastases Instructions: DI for Shortness of Breath Activity Restrictions/Additional Instructions: *You have been diagnosed with [dizziness and shortness of breath likely a consequence of evolving metastatic disease. As we discussed there is no evidence of pneumonia, blood clot or other diagnosis that would require a specific or immediate intervention] *What to do: *Please continue to take your regular medications as directed. [ ] New medication prescriptions sent to your pharmacy: [ ] [ ] New medication written as a paper prescription [ x] No new medications given *Please follow up with your primary oncologist on Sunday as planned. Let them know you were seen in the Emergency Department and that we ask that you be seen in follow up. We will electronically transmit a record of today's note if your PCP is in our system *Return to Emergency Department if you should have any new, worsening or concerning symptoms, such as [fever greater than 101 F, shaking chills, worsening pain, persistent vomiting or other bothersome symptoms] Prescriptions: No Action phenazopyridine [Pyridium] 200 mg tablet 200 mg PO TID PRN (Reason: pain) Qty: 30 0RF tamsulosin 0.4 mg capsule 0.4 mg PO BEDTIME Qty: 30 3RF metformin 500 mg tablet 1,000 mg PO BID (DME) blood sugar diagnostic strip amlodipine 10 mg tablet 10 mg PO DAILY halobetasol propionate 0.05 % ointment 1 applic topical DIRECTED lisinopril 10 mg tablet 10 mg PO DAILY adalimumab 40 mg/0.8 mL pen injector kit 1 dose subcut Q2W apremilast 30 mg tablet 30 mg PO BID aspirin [Adult Aspirin Regimen] 81 mg tablet,delayed release (DR/EC) 81 mg PO DAILY rosuvastatin 40 mg tablet 40 mg PO DAILY Referrals: Ellis Parsons MD [Primary Care Provider] -
== END 2022-05-25 16:49 | disposition home or self-care (01) ==
PROVIDERS: Nurse Practitioner Critical Care Medicine; Emergency Provider Emergency Medicine; PCP Internal Medicine Cardiovascular Disease; Referring Provider Urology
DX: C67.9 Malignant neoplasm of bladder, unspecified (principal); C78.00 Secondary malignant neoplasm of unspecified lung; R42 Dizziness and giddiness; R07.9 Chest pain, unspecified; Z20.822 Contact with and (suspected) exposure to COVID-19
CPT/HCPCS: 36415; 70450; 71046; 71275; 80053; 83605; 83880; 84484; 85025; 85379; 85610; 87635; 93005; 93010; 99284; C9803; Q9967

== ENCOUNTER → 2022-05-29 10:21 | Outpatient (CLI) | payer MEDICARE, OTHER, SELFPAY ==
--- NOTE | 2022-05-29 10:38 | DI.ECHO.S_ITS ---
[facility]---------+ [facility] +---------+ : : [address] : : : : [id number] : : : : Phone: [phone] Echocardiogram Report + + :Name: EUGENE HAM Study Date: 05/29/2022 Height: 71 in : :[facility] ReadingLocation: Weight: 172 lb: : Gender: Male BSA: 2.0 m2 : :: 1950 Age: 71 yrs : :Reason For Study: BLADDER CANCER, PRE-CHEMOTHERAPHY EVALUATION : :Ordering Physician: CHUCKY, : :ARNEL Performed By: Shannan Chavarria : :Referring: ARNEL LOCKE : + + Interpretation Summary The left ventricular cavity is small. Left ventricular wall thickness is mild- moderately increased. The ejection fraction is estimated to be 65-70%. Left ventricular global longitudinal strain average is -19.1%. There are no focal wall motion abnormalities. Diastolic parameters suggest a relaxation abnormality of the left ventricle, consistent with probable normal filling pressures. The right ventricle is normal in size and function. The right ventricular systolic pressure is estimated to be at least 49 mmHg based on an estimated right atrial pressure of 3 mm Hg. There is moderate pulmonary hypertension. The left atrial size is normal. Right atrial size is normal. There is no significant valvular heart disease. The aortic root is normal size. Procedure: A two-dimensional transthoracic echocardiogram with color flow and Doppler was performed. The study quality was technically adequate. There is no prior echocardiogram noted for this patient. The patient was in sinus rhythm with heart rates between 83-106 bpm during the exam. Left Ventricle: The left ventricular cavity is small. Left ventricular wall thickness is mild-moderately increased. The ejection fraction is estimated to be 65-70%. Left ventricular global longitudinal strain average is -19.1%. There are no focal wall motion abnormalities. Diastolic parameters suggest a relaxation abnormality of the left ventricle, consistent with probable normal filling pressures. Right Ventricle: The right ventricle is normal in size and function. Atria: The left atrial size is normal. Right atrial size is normal. There is no Doppler evidence for an interatrial shunt. Mitral Valve: The mitral valve is normal in structure and function. There is trace mitral regurgitation. Aortic Valve: The aortic valve is trileaflet. The aortic valve opens well. There is no aortic valve stenosis. No aortic regurgitation is present. Tricuspid Valve: The tricuspid valve is normal in structure and function. There is mild tricuspid regurgitation. The right ventricular systolic pressure is estimated to be at least 49 mmHg based on an estimated right atrial pressure of 3 mm Hg. There is moderate pulmonary hypertension. Pulmonic Valve: The pulmonic valve leaflets are thin and pliable; valve motion is normal. There is no pulmonic valvular regurgitation. There is no significant valvular heart disease. Great Vessels: The aortic root is normal size. The ascending aorta is normal in size. The IVC is of normal diameter and collapses greater than 50% with a sniff. This suggests a low right atrial pressure of 3 mm Hg. Pericardium/ Pleura There is no pericardial effusion. There is no pleural effusion. MMode/2D Measurements & Calculations LVIDd: 3.9 cm LVOT diam: 2.2 cm LVIDs: 2.5 cm Ao root diam: 4.0 cm FS: 36.2 % asc Aorta Diam: 3.6 cm IVSd: 1.5 cm Ao Arch Diam (Prox Trans): 2.8 cm LVPWd: 1.4 cm LV chowdhury. diameter/BSA (cm/m^2): 2.0 LV sys. diameter/BSA (cm/m^2): 1.2 LA A2 area: 18.0 cm2 RA long axis: 5.0 cm LA A4 area: 13.6 cm2 RA area: 15.6 cm2 LA length (vol): 4.8 cm RA vol: 41.2 ml LA vol: 43.8 ml RA : 20.9 ml/m2 LA vol index: 22.1 ml/m2 IVC diam: 1.9 cm RVD1 (basal): 3.3 cm RVD2 (mid): 2.5 cm TAPSE: 2.3 cm Doppler Measurements & Calculations Ao V2 max: 113.3 cm/sec LVOT Max Nathaniel: 101.6 cm/sec Ao V2 mean: 82.7 cm/sec LV V1 max P.1 mmHg Ao max P.1 mmHg LV V1 VTI: 18.2 cm Ao mean P.0 mmHg LINH(I,D): 3.1 cm2 Ao V2 VTI: 22.7 cm LINH(V,D): 3.4 cm2 sev ratio: 0.80 LINH indexed to BSA (cm^2/m^2): 1.6 MV E max nathaniel: 48.1 cm/sec TR max nathaniel: 339.9 cm/sec MV A max nathaniel: 66.0 cm/sec TR max P.2 mmHg MV E/A: 0.73 PA V2 max: 102.9 cm/sec Med Peak E' Nathaniel: 7.2 cm/sec PA V2 mean: 64.8 cm/sec E/E' med: 6.7 PA mean P.0 mmHg Lat Peak E' Nathaniel: 8.2 cm/sec PA Accel Time: 0.10 sec E/E' lat: 5.9 E/e' average: 6.3 MV dec time: 0.18 sec SV(LVOT): 69.9 ml Reading Physician:07:03 PM
== END ==
PROVIDERS: PCP Family Medicine; Referring Provider Internal Medicine Hematology & Oncology; Visit Provider Internal Medicine Hematology & Oncology
DX: C67.9 Malignant neoplasm of bladder, unspecified (principal); I25.10 Atherosclerotic heart disease of native coronary artery without angina pectoris; I07.1 Rheumatic tricuspid insufficiency; I27.20 Pulmonary hypertension, unspecified
CPT/HCPCS: 93306; 93356

== ENCOUNTER → 2022-05-29 10:43 | Outpatient (CLI) | payer MEDICARE, OTHER, SELFPAY ==
[2022-05-29 14:29] LABS: COVID19 -Nasal RAPID Negative (Negative)
== END ==
PROVIDERS: PCP Family Medicine; Visit Provider Surgery
DX: Z01.812 Encounter for preprocedural laboratory examination (principal); Z20.822 Contact with and (suspected) exposure to COVID-19
CPT/HCPCS: 87635

== ENCOUNTER 2022-05-31 13:34 | Day surgery (SDC) | payer MEDICARE, OTHER, SELFPAY ==
[2022-05-31] VITALS (7 sets, daily range): BP systolic 153–185; BP diastolic 75–99; PULSE 85–100; RESP 16–28; TEMP 36.2–36.7; O2SAT 91–95; BMI 22.4
--- NOTE | 2022-05-31 | DI.RAD.S_ITS ---
PROCEDURE: XR CHEST 1V INDICATIONS: POST PORT PLACEMENT TECHNIQUE: One view of the chest was acquired. COMPARISON: [facility], CT, CT ANGIO CHEST PE PROTOCOL, 05/25/2022, 15:35. [facility], CR, XR CHEST 1V, 05/13/2019, 14:21. FINDINGS: No visible pleural effusion or findings of pneumothorax. Innumerable bilateral pulmonary nodules with diffuse miliary distribution along with scattered areas of patchy ground-glass airspace opacity are similar to the comparison CT angiogram. Left chest wall central venous port catheter terminates in the upper SVC. Heart size. Normal. IMPRESSION: Left chest wall central venous port catheter terminates in the upper SVC. Dictated by: Perez Sheppard M.D. on 06/01/2022 at 9:18 Approved by: Perez Sheppard M.D. on 06/01/2022 at 9:21
[2022-05-31] MEDS: LACTATED RINGERS 1,000 ML 42 ML IV (14:24)
--- NOTE | 2022-05-31 14:52 | SUR.PREOP ---
05/31/[id number] aware surgery time will be delayed due to room running behind by prior MD.
--- NOTE | 2022-05-31 15:23 | PM.HP.1 ---
History of Present Illness History of Present Illness Date Patient Seen: 05/31/22 Time Patient Seen: 15:23 Chief complaint: PORT PLACEMENT Narrative: Here for venous port placement to treat bladder cancer diagnosed in November. Patient History Medical History Bladder mass Coronary artery disease Diabetes mellitus Gross hematuria HLD (hyperlipidemia) HTN (hypertension) Kidney disease Kidney stones Psoriasis Urinary bladder cancer Surgical History H/O laparoscopy History of heart artery stent (~02/06/19) History of transurethral destruction of bladder lesion (01/26/22) Hx of hernia repair Family & Social History Family History Mother CVA (cerebral vascular accident) Hypertension UTI (urinary tract infection) CAD (coronary artery disease) Sister Diabetes mellitus Gout Bilateral kidney stones Social History: household members none lives independently Yes Tobacco & Substance use: Smoking Status Former smoker alcohol intake former alcohol intake frequency a few times a month Substance Use Type marijuana Meds Home Medications and Allergies Home Medications Medication Instructions Recorded Confirmed Type amlodipine 10 mg tablet 10 mg PO DAILY 05/13/19 05/31/22 History apremilast 30 mg tablet 30 mg PO BID 05/13/19 05/31/22 History blood sugar diagnostic 05/13/19 05/25/22 History lisinopril 10 mg tablet 10 mg PO DAILY 05/13/19 05/31/22 History metformin 500 mg tablet 1,000 mg PO BID 05/13/19 05/31/22 History rosuvastatin 40 mg tablet 40 mg PO DAILY 12/26/21 05/31/22 History tamsulosin 0.4 mg capsule 0.4 mg PO BEDTIME #30 caps 05/16/22 05/31/22 Rx oxycodone-acetaminophen 5 mg-325 1 tab PO Q4-6H PRN bladder cancer 05/29/22 05/31/22 Rx mg tablet pain #60 tabs Allergies Allergy/AdvReac Type Severity Reaction Status Date / Time Sulfa (Sulfonamide Allergy Hives Verified 05/25/22 13:27 Antibiotics) atenolol AdvReac Intermediate Rash Verified 05/25/22 13:27 Review of Systems Review of Systems Narrative: urinary issues and weigt loss ROS: Yes All systems reviewed with the patient and are negative except as otherwise documented Exam Vital Signs (past 8 hours): - 05/31/22 13:59 Temperature 97.3 F L Pulse Rate 86 Respiratory Rate 16 Blood Pressure 172/99 H Pulse Oximetry 95 Oxygen Delivery Method Room Air Oxygen Delivery Method Room Air Const General: cooperative and frail appearing Nutritional Appearance: cachectic Orientation: alert, awake and oriented x3 HENMT Head: normal to inspection, normocephalic and atraumatic Ears: hearing grossly normal bilaterally Eyes General: appearance normal, both eyes and all related structures Sclera: sclerae normal Neck Neck: trachea midline Chest Chest: normal inspection of the chest Resp Effort & Inspection: normal respiratory effort and able to speak in complete sentences Cardio Rate: regular rate Rhythm: regular rhythm GI Inspection: normal to inspection and scaphoid Palpation: soft Skin General: no rashes or lesions noted and atrophy Hair: brittle Neuro General: patient alert, patient awake and patient oriented x3 Cognition: normal cognition Extrem General: normal to inspection Psych Appearance: grossly normal Affect: normal affect Judgment: judgment good Assessment & Plan Assessment & Plan narrative: Bladder cancer Venous portacath placement COVID-19 COVID-19 status: Negative Time Spent With Patient Time with patient: less than 30 minutes Critical Care time: I spent a total of [] minutes of critical care time on this patient's care today; this time is exclusive of procedural time.
[2022-05-31] MEDS: CEFAZOLIN 2 GM/20 ML SYRINGE IV (17:10)
--- NOTE | 2022-05-31 17:13 | SUR.OPER ---
Supine on padded OR bed, head on pillow, arms padded and tucked at sides, legs uncrossed, safety belt at thigh, tape over blanket over lower legs.
[2022-05-31] MEDS: BUPIVACAINE 0.5% (PF) 30 ML, EPINEPHrine 0.15 MG INJ (17:19)
[2022-05-31] MEDS: HEPARIN 5,000 UNIT, SODIUM CHLORIDE 0.9% 50 ML IV (17:20)
--- NOTE | 2022-05-31 17:53 | P.OP_ITS ---
Operative Date/Time/Diagnoses Date of procedure: 05/31/22 Time of procedure: 17:53 Pre-op diagnosis: Bladder cancer Post-op diagnosis: same Procedure & Clinicians Procedure: Left subclavian vein Port-A-Cath placement Same procedure as scheduled: Yes Indications: Bladder cancer Surgeon: Khloe Jo Click Yes if Unassisted: Yes Anesthesia Type: General Operative Notes Findings: Normal appearing anatomy. However initially the wire met resistance and curled going into the subclavian vein. Good venous return on the end product. Closure Type: primary Specimen(s): none sent Prosthetic devices, grafts, tissues, transplants, or devices: Slim left subclavian vein Port-A-Cath Estimated Blood Loss (mL): 30 Blood products transfused: none Procedure in detail: Preop diagnosis: Bladder cancer Postop diagnosis: Same Operative procedure: Left subclavian vein Port-A-Cath placement, power port Surgeon: Ethel Jo MD Anesthetic: General with LMA intubation Findings: Normal appearing anatomy good venous return. There was some resistance and feeding the wire through the subclavian vein initially but was able to achieve good position Procedure: Patient placed in the Trendelenburg position. Prepped and draped sterile fashion expose his upper chest wall bilaterally. Local anesthetic was injected in the left subclavicular anterior chest wall. Left subclavian vein was accessed and Seldinger technique was carried out using J-wire and fluoroscopy. Port-A-Cath pocket was created using 11 blade, electrocautery, blunt dissection. Port was measured catheter was cut 10 port was placed into the pocket tunneling it briefly to the access point. Through the peel-away sheath the catheter was placed into the vein and reviewed with fluoroscopy showing good placement. Heparin solution was used for aspiration getting good venous return and flushed. Closure consisted of 3-0 Vicryl for subcutaneous reapproximation. 3-0 absorbable barbed suture for skin. And prior to closure the port itself was tacked to the anterior abdominal wall in 2 points using 2-0 Ethibond. Steri- Strips and sterile dressings were placed. Patient was awakened, extubated, taken to recovery room in stable condition with needle, instrument, sponge counts correct Blood loss: 30 mL Specimen: None
--- NOTE | 2022-05-31 18:06 | SUR.PHASEI ---
Patient drowsy but arousable; taking ice chips without difficulty; vss; lungs cta.
[2022-05-31] MEDS: ONDANSETRON 4 MG/2 ML INJ IV (18:15)
--- NOTE | 2022-05-31 19:04 | SUR.PHASEII ---
Patient home with friends in stable condition. All belongings returned.
== END 2022-05-31 19:04 | disposition home or self-care (01) ==
PROVIDERS: PCP Family Medicine; Referring Provider Surgery; Visit Provider Surgery
PROC: (CPT 36561; principal; 2022-05-31 15:30)
DX: C67.9 Malignant neoplasm of bladder, unspecified (principal); E11.9 Type 2 diabetes mellitus without complications; I10 Essential (primary) hypertension; I25.10 Atherosclerotic heart disease of native coronary artery without angina pectoris; E78.5 Hyperlipidemia, unspecified; Z79.84 Long term (current) use of oral hypoglycemic drugs; Z95.5 Presence of coronary angioplasty implant and graft; Z87.891 Personal history of nicotine dependence
CPT/HCPCS: 36561; 71045; 76000; 82962; J0171; J0690; J1100; J1644; J2405; J2704; J3010

== ENCOUNTER 2022-06-06 03:44 | Emergency (ER) | payer MEDICARE, OTHER, SELFPAY ==
[2022-06-06] VITALS (55 sets, daily range): BP systolic 96–165; BP diastolic 46–98; PULSE 50–176; RESP 12–100; TEMP 31–38.2; O2SAT 75–99
--- NOTE | 2022-06-06 03:49 | DI.RAD.S_ITS ---
PROCEDURE: XR CHEST 1V INDICATIONS: septic, hypoxemia, tachypnea TECHNIQUE: One view of the chest was acquired. COMPARISON: [facility], CT, CT ANGIO CHEST PE PROTOCOL, 06/06/2022, 5:04. [facility], CR, XR CHEST 1V, 05/31/2022, 17:54. FINDINGS: Surgical changes and devices: Left-sided central venous catheter is unchanged in positioning. Distal tip projects over the lower SVC. Lungs and pleura: Diffuse interstitial prominence with diffusely scattered nodular opacities throughout the bilateral hemithoraces. Small bilateral pleural effusions. No pneumothorax. Mediastinum: Mediastinal contours appear normal. Heart size is normal. Bones and chest wall: No suspicious bony lesions. Overlying soft tissues appear unremarkable. IMPRESSION: Diffuse multifocal airspace disease not significantly changed. No new focal consolidations. Findings may represent a diffuse infectious process although diffuse metastatic disease not excluded given appearance on comparison CT. Follow-up imaging recommended. No significant discrepancy with the maintenance mechanic 2nd shift radiology preliminary report. Dictated by: Marcos Ríos M.D. on 06/06/2022 at 7:13 Approved by: Marcos Ríos M.D. on 06/06/2022 at 7:20
--- NOTE | 2022-06-06 03:52 | ED.WEAKNESS ---
HPI - Weakness <Butch GuzmanDO fadi - Last Filed: 06/07/22 03:07> General Chief complaint: Weakness Stated complaint: Weakness Time Seen by Provider: 06/06/22 03:50 History of Present Illness HPI Narrative: 71-year-old male with history of coronary artery disease, diabetes, kidney stones is relatively early in the diagnosis and treatment of metastatic urothelial carcinoma (lung, liver, lymph nodes in the abdomen, pelvis and mediastinum). He is yet to receive any chemo or radiation and had a port placed about 1 week ago. Presents today by EMS due to rapid decline in his overall well-being. Admittedly, he is become increasingly weak and fatigued over the past few months but over the past 3 days he has been sufficiently worn out that he could not even get off the couch. He is significantly short of breath with minimal exertion. He is a bit confused from his baseline. He denies any runny nose or sore throat and has no chest pain but is short of breath and has had some cough. He denies abdominal pain or change in bowel habits. Lives at home in up until recently did not have any help but apparently on occasion has some help from family these days. Per oncology note the patient understands that this is generally considered an incurable diagnosis. Management options could include chemotherapy times 4-6 cycles of carboplatin and cisplatin plus gemcitabine. Related Data Home Medications Medication Instructions Recorded Confirmed amlodipine 10 mg tablet 10 mg PO DAILY 05/13/19 05/31/22 apremilast 30 mg tablet 30 mg PO BID 05/13/19 05/31/22 blood sugar diagnostic 05/13/19 05/25/22 lisinopril 10 mg tablet 10 mg PO DAILY 05/13/19 05/31/22 metformin 500 mg tablet 1,000 mg PO BID 05/13/19 05/31/22 rosuvastatin 40 mg tablet 40 mg PO DAILY 12/26/21 05/31/22 Previous Rx's Medication Instructions Recorded tamsulosin 0.4 mg capsule 0.4 mg PO BEDTIME #30 caps 05/16/22 oxycodone-acetaminophen 5 mg-325 1 tab PO Q4-6H PRN bladder cancer 05/29/22 mg tablet pain #60 tabs Allergies Allergy/AdvReac Type Severity Reaction Status Date / Time Sulfa (Sulfonamide Allergy Hives Verified 05/25/22 13:27 Antibiotics) atenolol AdvReac Intermediate Rash Verified 05/25/22 13:27 Review of Systems <Butch Archer DO - Last Filed: 06/07/22 03:07> Review of Systems Narrative: GENERAL: See HPI HEENT: Denies sinus pain, ear pain, sore throat, difficulty swallowing, dizziness. RESPIRATORY: See HPI CARDIOVASCULAR: See HPI GASTROINTESTINAL: Denies nausea, vomiting, abdominal pain, diarrhea, constipation, melena. : Denies dysuria, frequency, incontinence, hematuria, urinary retention. MUSCULOSKELETAL: denies weakness, joint pain, or bony pain SKIN: Denies rash, skin lesions, or other NEUROLOGIC: Denies weakness, headache, numbness, change in speech, confusion, seizures, incoordination. PSYCHIATRIC: No concerning psychosocial issues. 12 point review of systems is negative except for those stated above Patient History <Butch Archer DO - Last Filed: 06/07/22 03:07> Medical History Bladder mass Coronary artery disease Diabetes mellitus Gross hematuria HLD (hyperlipidemia) HTN (hypertension) Kidney disease Kidney stones Psoriasis Urinary bladder cancer Surgical History H/O laparoscopy History of heart artery stent (~02/06/19) History of transurethral destruction of bladder lesion (01/26/22) Hx of hernia repair Family History Mother CVA (cerebral vascular accident) Hypertension UTI (urinary tract infection) CAD (coronary artery disease) Sister Diabetes mellitus Gout Bilateral kidney stones Social History marital status: number of children: 0 household members: none lives independently: Yes Smoking Status: Former smoker alcohol intake: former substance use type: marijuana (for sleep) Smoking Status: Former smoker alcohol intake frequency: a few times a month Substance Use Type: marijuana Exam <Butch Archer DO - Last Filed: 06/07/22 03:07> Narrative Exam Narrative: GENERAL: [71] year old patient appears older than stated age. GCS 14 (confused) ill-appearing, thin and gaunt with rapid shallow breathing and rapid heart rate. HEAD: Atraumatic. Normocephalic. EYES: Pupils equal round and reactive. Extraocular motions intact. No scleral icterus. No injection or drainage. ENT: Dry mucous membranes Nose without bleeding, purulent drainage. Throat without erythema, tonsillar hypertrophy or exudate. Airway patent. NECK: Trachea midline. Non tender CARDIOVASCULAR: Tachycardic and irregular rhythm without murmurs, gallops, or rubs. RESPIRATORY: Increased work of breathing with rapid shallow breaths, pulse ox 90% GASTROINTESTINAL: Abdomen soft, non-tender, nondistended. EXTREMITIES: No edema or joint tenderness. BACK: Nontender without deformity or crepitance. No flank tenderness. NEURO: AOx3. Accurate answers though slow and very delivered responses SKIN: No rash or erythema of visible areas Initial Vital Signs Initial Vital Signs: Vital Signs Temperature 97.6 F 06/06/22 04:00 Pulse Rate 116 H 06/06/22 04:00 Respiratory Rate 26 H 06/06/22 04:00 Blood Pressure 124/89 06/06/22 04:00 Pulse Oximetry 90 L 06/06/22 04:00 Oxygen Delivery Method 06/06/22 04:00 <Isis Miguel DO - Last Filed: 06/06/22 19:51> Initial Vital Signs Initial Vital Signs: Vital Signs Temperature 97.6 F 06/06/22 04:00 Pulse Rate 116 H 06/06/22 04:00 Respiratory Rate 26 H 06/06/22 04:00 Blood Pressure 124/89 06/06/22 04:00 Pulse Oximetry 90 L 06/06/22 04:00 Oxygen Delivery Method 06/06/22 04:00 Procedures <Butch Archer DO - Last Filed: 06/07/22 03:07> Cardioversion Indication: need for emergency cardioversion Stability: Unstable Number of attempts (shocks): 3 Joules used: 200 Cardiac rhythm post-cardioversion: unchanged Procedural Sedation Consent signed: Yes Time out performed: Yes Indication: cardioversion Mallampati Airway Classification: Class II Preparation: awning spreader applied, pulse oximeter, capnometry used, supplemental O2 applied, suction/airway equipment at bedside and IV secured IV Propofol dose (mg): 30 Intraservice time/total sedation time (min): 12 ED Sedation Level: Moderate (Concious) Patient Tolerated Procedure: Well Complications: none <DO Constantine Segovia Last Filed: 06/06/22 19:51> Intubation sedative: other (ketamine) Mg Given: 150 paralytic: Succinylcholine Mg Given: 150 Laryngoscope: other (glide scope) ET Tube Size: 7.5 Tube Secured Location: lips Additional Comments: Significant fluid and pulmonary edema Course <Butch Archer DO - Last Filed: 06/07/22 03:07> Orders Ordered: Discontinued Medications Diltiazem HCl (Diltiazem 5 Mg/Ml Sdv) 10 mg IV NOW ONE Stop: 06/06/22 06:18 Last Admin: 06/06/22 06:32 Dose: 10 mg Documented By: JENS Enoxaparin Sodium (Enoxaparin 30 Mg/0.3 Ml Syringe) 30 mg SUBCUT NOW ONE Stop: 06/06/22 06:18 Last Admin: 06/06/22 07:43 Dose: Not Given Documented By: NALLELY Furosemide (Furosemide 40 Mg/4 Ml Vial) 40 mg IV NOW ONE Stop: 06/06/22 09:59 Last Admin: 06/06/22 10:20 Dose: 40 mg Documented By: NALLELY Furosemide (Furosemide 100 Mg/10 Ml Vial) 60 mg IV NOW ONE Stop: 06/06/22 11:10 Last Admin: 06/06/22 11:19 Dose: 60 mg Documented By: NALLELY Heparin Sodium (Porcine) (Heparin 5,000 Unit/Ml Vial) 5,800 unit 80 unit/kg (5800 unit) IV NOW ONE Stop: 06/06/22 07:48 Last Admin: 06/06/22 08:39 Dose: 5,800 unit Documented By: JENS Hydromorphone HCl (Hydromorphone 1 Mg Inj) 1 mg IV NOW ONE Stop: 06/06/22 11:22 Last Admin: 06/06/22 11:27 Dose: 1 mg Documented By: NALLELY Piperacillin Sod/Tazobactam (Sod 4.5 gm/ Sodium Chloride) 100 mls @ 200 mls/hr IV NOW ONE Stop: 06/06/22 04:46 Last Infusion: 06/06/22 05:31 Dose: 0 mls/hr Documented By: Admin: 06/06/22 04:55 Dose: 200 mls/hr Documented By: JENS Lactated Ringer's (Lactated Ringers) 1,000 mls @ 1,000 mls/hr IV BOLUS ONE Stop: 06/06/22 05:44 Last Infusion: 06/06/22 07:41 Dose: 0 mls/hr Documented By: Admin: 06/06/22 04:56 Dose: 1,000 mls/hr Documented By: JENS Lactated Ringer's (Lactated Ringers) 2,169 mls @ 723 mls/hr 30 ml/kg infuse over 3 hr (2169 ml) IV NOW ONE Stop: 06/06/22 08:35 Last Admin: 06/06/22 07:40 Dose: Not Given Documented By: NALLELY DILTIAZEM (Diltiazem 125 Mg/125 Ml-D5w) 125 mg in 125 mls @ 5 mls/hr IV TITRATE MERARI; Protocol Last Titration: 06/06/22 09:36 Dose: 0 mg/hr, 0 mls/hr Documented By: Titration: 06/06/22 08:22 Dose: 0 mg/hr, 0 mls/hr Documented By: Titration: 06/06/22 07:14 Dose: 15 mg/hr, 15 mls/hr Documented By: Titration: 06/06/22 06:46 Dose: 10 mg/hr, 10 mls/hr Documented By: Admin: 06/06/22 06:36 Dose: 5 mg/hr, 5 mls/hr Documented By: JENS Heparin Sodium/Dextrose (Heparin Drip) 25,000 unit in 500 mls @ 26.028 mls/hr IV CONT MERARI; Protocol Last Titration: 06/06/22 12:00 Dose: 3 units/kg/hr, 4.338 mls/hr Documented By: Admin: 06/06/22 08:40 Dose: 18 units/kg/hr, 26.028 mls/hr Documented By: JENS Ketamine HCl (Ketamine 500 Mg/5 Ml Inj) 70 mg 1 mg/kg (70 mg) IV NOW ONE Stop: 06/06/22 11:38 Last Admin: 06/06/22 14:50 Dose: Not Given Documented By: NALLELY Metoprolol Tartrate (Metoprolol Tartrate 5 Mg/5 Ml Inj) 5 mg IV NOW ONE Stop: 06/06/22 07:47 Last Admin: 06/06/22 09:29 Dose: Not Given Documented By: NALLELY Propofol (Propofol 200 Mg/20 Ml Vial) 70 mg 1 mg/kg (70 mg) IV NOW ONE Stop: 06/06/22 06:02 Last Admin: 06/06/22 06:13 Dose: 30 mg Documented By: JENS Reevaluation(s) Reevaluation #1: [id number] -called to see patient who has entered into a rapid AFib after a coughing spell, he has heart rate in the 170s but is relatively asymptomatic and does not complain of any increasing shortness of breath, chest pain Vital Signs Vital signs: Vital Signs - 8 hr 06/06/22 12:00 06/06/22 11:51 06/06/22 11:51 Temperature 100.8 F H Pulse Rate 65 123 H Respiratory Rate 94 H Blood Pressure 165/74 H Pulse Oximetry 76 L Oxygen Delivery Method Ambu Bag 06/06/22 12:00 Temperature 100.8 F H Pulse Rate 168 H Respiratory Rate Blood Pressure Pulse Oximetry 80 L Oxygen Delivery Method <Isis Miguel DO - Last Filed: 06/06/22 19:51> Orders Ordered: Discontinued Medications Diltiazem HCl (Diltiazem 5 Mg/Ml Sdv) 10 mg IV NOW ONE Stop: 06/06/22 06:18 Last Admin: 06/06/22 06:32 Dose: 10 mg Documented By: JENS Enoxaparin Sodium (Enoxaparin 30 Mg/0.3 Ml Syringe) 30 mg SUBCUT NOW ONE Stop: 06/06/22 06:18 Last Admin: 06/06/22 07:43 Dose: Not Given Documented By: NALLELY Furosemide (Furosemide 40 Mg/4 Ml Vial) 40 mg IV NOW ONE Stop: 06/06/22 09:59 Last Admin: 06/06/22 10:20 Dose: 40 mg Documented By: NALLELY Furosemide (Furosemide 100 Mg/10 Ml Vial) 60 mg IV NOW ONE Stop: 06/06/22 11:10 Last Admin: 06/06/22 11:19 Dose: 60 mg Documented By: NALLELY Heparin Sodium (Porcine) (Heparin 5,000 Unit/Ml Vial) 5,800 unit 80 unit/kg (5800 unit) IV NOW ONE Stop: 06/06/22 07:48 Last Admin: 06/06/22 08:39 Dose: 5,800 unit Documented By: JENS Hydromorphone HCl (Hydromorphone 1 Mg Inj) 1 mg IV NOW ONE Stop: 06/06/22 11:22 Last Admin: 06/06/22 11:27 Dose: 1 mg Documented By: NALLELY Piperacillin Sod/Tazobactam (Sod 4.5 gm/ Sodium Chloride) 100 mls @ 200 mls/hr IV NOW ONE Stop: 06/06/22 04:46 Last Infusion: 06/06/22 05:31 Dose: 0 mls/hr Documented By: Admin: 06/06/22 04:55 Dose: 200 mls/hr Documented By: JENS Lactated Ringer's (Lactated Ringers) 1,000 mls @ 1,000 mls/hr IV BOLUS ONE Stop: 06/06/22 05:44 Last Infusion: 06/06/22 07:41 Dose: 0 mls/hr Documented By: Admin: 06/06/22 04:56 Dose: 1,000 mls/hr Documented By: JENS Lactated Ringer's (Lactated Ringers) 2,169 mls @ 723 mls/hr 30 ml/kg infuse over 3 hr (2169 ml) IV NOW ONE Stop: 06/06/22 08:35 Last Admin: 06/06/22 07:40 Dose: Not Given Documented By: NALLELY DILTIAZEM (Diltiazem 125 Mg/125 Ml-D5w) 125 mg in 125 mls @ 5 mls/hr IV TITRATE MERRAI; Protocol Last Titration: 06/06/22 09:36 Dose: 0 mg/hr, 0 mls/hr Documented By: Titration: 06/06/22 08:22 Dose: 0 mg/hr, 0 mls/hr Documented By: Titration: 06/06/22 07:14 Dose: 15 mg/hr, 15 mls/hr Documented By: Titration: 06/06/22 06:46 Dose: 10 mg/hr, 10 mls/hr Documented By: Admin: 06/06/22 06:36 Dose: 5 mg/hr, 5 mls/hr Documented By: JENS Heparin Sodium/Dextrose (Heparin Drip) 25,000 unit in 500 mls @ 26.028 mls/hr IV CONT MERARI; Protocol Last Titration: 06/06/22 12:00 Dose: 3 units/kg/hr, 4.338 mls/hr Documented By: Admin: 06/06/22 08:40 Dose: 18 units/kg/hr, 26.028 mls/hr Documented By: JENS Ketamine HCl (Ketamine 500 Mg/5 Ml Inj) 70 mg 1 mg/kg (70 mg) IV NOW ONE Stop: 06/06/22 11:38 Last Admin: 06/06/22 14:50 Dose: Not Given Documented By: NALLELY Metoprolol Tartrate (Metoprolol Tartrate 5 Mg/5 Ml Inj) 5 mg IV NOW ONE Stop: 06/06/22 07:47 Last Admin: 06/06/22 09:29 Dose: Not Given Documented By: NALLELY Propofol (Propofol 200 Mg/20 Ml Vial) 70 mg 1 mg/kg (70 mg) IV NOW ONE Stop: 06/06/22 06:02 Last Admin: 06/06/22 06:13 Dose: 30 mg Documented By: JENS Vital Signs Vital signs: Vital Signs - 8 hr 06/06/22 12:00 06/06/22 11:51 06/06/22 11:51 Temperature 100.8 F H Pulse Rate 65 123 H Respiratory Rate 94 H Blood Pressure 165/74 H Pulse Oximetry 76 L Oxygen Delivery Method Ambu Bag 06/06/22 12:00 Temperature 100.8 F H Pulse Rate 168 H Respiratory Rate Blood Pressure Pulse Oximetry 80 L Oxygen Delivery Method MDM - Weakness <Butch Archer DO - Last Filed: 06/07/22 03:07> Lab Data Result diagrams: 06/06/22 11:40 06/06/22 10:35 Labs: Lab Results 06/06/22 06/06/22 06/06/22 Range/Units 03:55 03:55 03:55 WBC 17.6 H (4.5-11.0) X10^3/uL RBC 5.75 (4.5-5.9) X10^6/uL Hgb 15.9 (13.5-17.5) g/dL Hct 47.9 (41-53) % MCV 83.3 (80-100) fL MCH 27.6 (26-34) PG MCHC 33.2 (30-36) % RDW 15.9 H (11.6-14.8) % Plt Count 318 (150-400) X10^3/uL Neut % (Auto) 89.2 H (50-75) % Lymph % (Auto) 2.8 L (25-40) % [place] % (Auto) 7.2 (3-14) % Eos % (Auto) 0.1 L (2-4) % Baso % (Auto) 0.7 (0-2) % Neut # (Auto) 76376 H (7610-3270) /uL Lymph # (Auto) 500 L (3778-5310) /uL [place] # (Auto) 1300 H (0-900) /uL Eos # (Auto) 0 (0-450) /uL Baso # (Auto) 100 (0-100) /uL PT 13.3 H (10.1-12.7) SECONDS INR 1.2 (0.9-1.3) APTT (26.4-36.2) SECONDS ABG pH (7.35-7.45) ABG pCO2 (35-45) mmHg ABG pO2 (80-100) mmHg ABG HCO3 (22-26) mmol/L ABG Total CO2 (21-31) mmol/L ABG O2 Saturation (95-100) % ABG Base Excess (-2-2) mmol/L FiO2 Sodium 138 (137-145) mmol/L Potassium 4.2 (3.4-5.1) mmol/L Chloride 98 (98-107) mmol/L Carbon Dioxide 23 (22-32) mmol/L BUN 59 H (9-20) mg/dL Creatinine 1.70 H (0.66-1.25) mg/dL Estimated GFR 43 L (>60) mL/min BUN/Creatinine Ratio 34.7 H (6-22) Glucose 264 H (80-110) mg/dL Lactate (0.7-2.1) mmol/L Calcium 8.8 (8.4-10.2) mg/dL Total Bilirubin 0.8 (0.2-1.3) mg/dL AST 41 (17-59) IU/L ALT 34 (<50) IU/L Alkaline Phosphatase 244 H (38-126) U/L Total Creatine Kinase 54 L (55-170) U/L CK-MB (CK-2) TNP CK-MB (CK-2) Rel Index TNP Troponin I 0.065 H (0.01-0.034) ng/mL NT-Pro-B Natriuret Pep 4350 H (<125) pg/mL Total Protein 6.4 (6.3-8.2) g/dL Albumin 3.5 (3.5-5.0) g/dL Globulin 2.9 (1.7-4.1) g/dL Albumin/Globulin Ratio 1.2 (1.0-2.8) Procalcitonin 0.61 H (<0.5) ng/mL Urine Color Urine Appearance Urine pH (4.5-8.0) Ur Specific [place] (1.000-1.035) Urine Protein (Negative) Urine Glucose (UA) (Negative) g/dL Urine Ketones (NEGATIVE) Urine Occult Blood (Negative) Urine Nitrate (Negative) Urine Bilirubin (NEGATIVE) Ur Bilirubin Confirm (Negative) Urine Urobilinogen (0.2) E.U./dL Ur Leukocyte Esterase (NEGATIVE) Urine RBC (0-5/HPF) Urine WBC (0-5/HPF) Ur Squamous Epith Cells (0-5/HPF) Amorphous Sediment Urine Bacteria (None) Ur Culture Indicated? Chlamy pneumoniae PCR (Not Detect) Adenovirus (PCR) (Not Detect) B. pertussis DNA (PCR) (Not Detecte) B.parapertussis DNA PCR (Not Detecte) Coronavirus OC43 (PCR) (Not Detect) Coronavirus HKU1 (PCR) (Not Detect) Coronavirus 229E (PCR) (Not Detect) SARS-CoV-2 (PCR) (Not Detecte) Coronavirus NL63 (PCR) (Not Detect) Human Metapneumovir PCR (Not Detect) Influenza Type A (PCR) (Not Detect) Influenza Type B (PCR) (Not Detect) M. pneumoniae (PCR) (Not Detect) Parainfluenza 1 (PCR) (Not Detect) Parainfluenza 2 (PCR) (Not Detect) Parainfluenza 3 (PCR) (Not Detect) Parainfluenza 4 (PCR) (Not Detect) RSV (PCR) (Not Detect) Entero/Rhino (PCR) (Not Detect) 06/06/22 06/06/22 06/06/22 Range/Units 03:55 04:15 04:57 WBC (4.5-11.0) X10^3/uL RBC (4.5-5.9) X10^6/uL Hgb (13.5-17.5) g/dL Hct (41-53) % MCV (80-100) fL MCH (26-34) PG MCHC (30-36) % RDW (11.6-14.8) % Plt Count (150-400) X10^3/uL Neut % (Auto) (50-75) % Lymph % (Auto) (25-40) % [place] % (Auto) (3-14) % Eos % (Auto) (2-4) % Baso % (Auto) (0-2) % Neut # (Auto) (9563-8660) /uL Lymph # (Auto) (6026-9515) /uL [place] # (Auto) (0-900) /uL Eos # (Auto) (0-450) /uL Baso # (Auto) (0-100) /uL PT (10.1-12.7) SECONDS INR (0.9-1.3) APTT (26.4-36.2) SECONDS ABG pH 7.52 H (7.35-7.45) ABG pCO2 34.2 L (35-45) mmHg ABG pO2 92 (80-100) mmHg ABG HCO3 28 H (22-26) mmol/L ABG Total CO2 29 (21-31) mmol/L ABG O2 Saturation 98 (95-100) % ABG Base Excess 5.0 H (-2-2) mmol/L FiO2 28 Sodium (137-145) mmol/L Potassium (3.4-5.1) mmol/L Chloride (98-107) mmol/L Carbon Dioxide (22-32) mmol/L BUN (9-20) mg/dL Creatinine (0.66-1.25) mg/dL Estimated GFR (>60) mL/min BUN/Creatinine Ratio (6-22) Glucose (80-110) mg/dL Lactate 4.0 H (0.7-2.1) mmol/L Calcium (8.4-10.2) mg/dL Total Bilirubin (0.2-1.3) mg/dL AST (17-59) IU/L ALT (<50) IU/L Alkaline Phosphatase (38-126) U/L Total Creatine Kinase (55-170) U/L CK-MB (CK-2) CK-MB (CK-2) Rel Index Troponin I (0.01-0.034) ng/mL NT-Pro-B Natriuret Pep (<125) pg/mL Total Protein (6.3-8.2) g/dL Albumin (3.5-5.0) g/dL Globulin (1.7-4.1) g/dL Albumin/Globulin Ratio (1.0-2.8) Procalcitonin (<0.5) ng/mL Urine Color Urine Appearance Urine pH (4.5-8.0) Ur Specific [place] (1.000-1.035) Urine Protein (Negative) Urine Glucose (UA) (Negative) g/dL Urine Ketones (NEGATIVE) Urine Occult Blood (Negative) Urine Nitrate (Negative) Urine Bilirubin (NEGATIVE) Ur Bilirubin Confirm (Negative) Urine Urobilinogen (0.2) E.U./dL Ur Leukocyte Esterase (NEGATIVE) Urine RBC (0-5/HPF) Urine WBC (0-5/HPF) Ur Squamous Epith Cells (0-5/HPF) Amorphous Sediment Urine Bacteria (None) Ur Culture Indicated? Chlamy pneumoniae PCR Not detected (Not Detect) Adenovirus (PCR) Not detected (Not Detect) B. pertussis DNA (PCR) Not detected (Not Detecte) B.parapertussis DNA PCR Not detected (Not Detecte) Coronavirus OC43 (PCR) Not detected (Not Detect) Coronavirus HKU1 (PCR) Not detected (Not Detect) Coronavirus 229E (PCR) Not detected (Not Detect) SARS-CoV-2 (PCR) Not detected (Not Detecte) Coronavirus NL63 (PCR) Not detected (Not Detect) Human Metapneumovir PCR Not detected (Not Detect) Influenza Type A (PCR) Not detected (Not Detect) Influenza Type B (PCR) Not detected (Not Detect) M. pneumoniae (PCR) Not detected (Not Detect) Parainfluenza 1 (PCR) Not detected (Not Detect) Parainfluenza 2 (PCR) Not detected (Not Detect) Parainfluenza 3 (PCR) Not detected (Not Detect) Parainfluenza 4 (PCR) Not detected (Not Detect) RSV (PCR) Not detected (Not Detect) Entero/Rhino (PCR) Not detected (Not Detect) 06/06/22 06/06/22 06/06/22 Range/Units 06:28 08:10 10:33 WBC (4.5-11.0) X10^3/uL RBC (4.5-5.9) X10^6/uL Hgb (13.5-17.5) g/dL Hct (41-53) % MCV (80-100) fL MCH (26-34) PG MCHC (30-36) % RDW (11.6-14.8) % Plt Count (150-400) X10^3/uL Neut % (Auto) (50-75) % Lymph % (Auto) (25-40) % [place] % (Auto) (3-14) % Eos % (Auto) (2-4) % Baso % (Auto) (0-2) % Neut # (Auto) (4479-1404) /uL Lymph # (Auto) (1362-6626) /uL [place] # (Auto) (0-900) /uL Eos # (Auto) (0-450) /uL Baso # (Auto) (0-100) /uL PT (10.1-12.7) SECONDS INR (0.9-1.3) APTT 29 D (26.4-36.2) SECONDS ABG pH (7.35-7.45) ABG pCO2 (35-45) mmHg ABG pO2 (80-100) mmHg ABG HCO3 (22-26) mmol/L ABG Total CO2 (21-31) mmol/L ABG O2 Saturation (95-100) % ABG Base Excess (-2-2) mmol/L FiO2 Sodium (137-145) mmol/L Potassium (3.4-5.1) mmol/L Chloride (98-107) mmol/L Carbon Dioxide (22-32) mmol/L BUN (9-20) mg/dL Creatinine (0.66-1.25) mg/dL Estimated GFR (>60) mL/min BUN/Creatinine Ratio (6-22) Glucose (80-110) mg/dL Lactate 3.7 H (0.7-2.1) mmol/L Calcium (8.4-10.2) mg/dL Total Bilirubin (0.2-1.3) mg/dL AST (17-59) IU/L ALT (<50) IU/L Alkaline Phosphatase (38-126) U/L Total Creatine Kinase (55-170) U/L CK-MB (CK-2) CK-MB (CK-2) Rel Index Troponin I (0.01-0.034) ng/mL NT-Pro-B Natriuret Pep (<125) pg/mL Total Protein (6.3-8.2) g/dL Albumin (3.5-5.0) g/dL Globulin (1.7-4.1) g/dL Albumin/Globulin Ratio (1.0-2.8) Procalcitonin (<0.5) ng/mL Urine Color Brown Urine Appearance Sl cloudy Urine pH 6.5 (4.5-8.0) Ur Specific [place] 1.025 (1.000-1.035) Urine Protein 3+ H (Negative) Urine Glucose (UA) Trace H (Negative) g/dL Urine Ketones 1+ H (NEGATIVE) Urine Occult Blood 3+ H (Negative) Urine Nitrate Negative (Negative) Urine Bilirubin 2+ H (NEGATIVE) Ur Bilirubin Confirm Negative (Negative) Urine Urobilinogen 0.2 (0.2) E.U./dL Ur Leukocyte Esterase Trace H (NEGATIVE) Urine RBC >100/hpf H (0-5/HPF) Urine WBC 1-5/hpf (0-5/HPF) Ur Squamous Epith Cells 1-5 /hpf (0-5/HPF) Amorphous Sediment 2+ Urine Bacteria None seen (None) Ur Culture Indicated? Specimen cultured Chlamy pneumoniae PCR (Not Detect) Adenovirus (PCR) (Not Detect) B. pertussis DNA (PCR) (Not Detecte) B.parapertussis DNA PCR (Not Detecte) Coronavirus OC43 (PCR) (Not Detect) Coronavirus HKU1 (PCR) (Not Detect) Coronavirus 229E (PCR) (Not Detect) SARS-CoV-2 (PCR) (Not Detecte) Coronavirus NL63 (PCR) (Not Detect) Human Metapneumovir PCR (Not Detect) Influenza Type A (PCR) (Not Detect) Influenza Type B (PCR) (Not Detect) M. pneumoniae (PCR) (Not Detect) Parainfluenza 1 (PCR) (Not Detect) Parainfluenza 2 (PCR) (Not Detect) Parainfluenza 3 (PCR) (Not Detect) Parainfluenza 4 (PCR) (Not Detect) RSV (PCR) (Not Detect) Entero/Rhino (PCR) (Not Detect) 06/06/22 06/06/22 06/06/22 Range/Units 10:35 10:35 11:40 WBC 15.3 H (4.5-11.0) X10^3/uL RBC 5.19 (4.5-5.9) X10^6/uL Hgb 14.1 (13.5-17.5) g/dL Hct 43.9 (41-53) % MCV 84.5 (80-100) fL MCH 27.2 (26-34) PG MCHC 32.2 (30-36) % RDW 16.3 H (11.6-14.8) % Plt Count 312 (150-400) X10^3/uL Neut % (Auto) 91.9 H (50-75) % Lymph % (Auto) 2.2 L (25-40) % [place] % (Auto) 4.8 (3-14) % Eos % (Auto) 0.1 L (2-4) % Baso % (Auto) 1.0 (0-2) % Neut # (Auto) 18395 H (1645-3413) /uL Lymph # (Auto) 300 L (9567-4156) /uL [place] # (Auto) 700 (0-900) /uL Eos # (Auto) 0 (0-450) /uL Baso # (Auto) 200 H (0-100) /uL PT (10.1-12.7) SECONDS INR (0.9-1.3) APTT (26.4-36.2) SECONDS ABG pH (7.35-7.45) ABG pCO2 (35-45) mmHg ABG pO2 (80-100) mmHg ABG HCO3 (22-26) mmol/L ABG Total CO2 (21-31) mmol/L ABG O2 Saturation (95-100) % ABG Base Excess (-2-2) mmol/L FiO2 Sodium 139 (137-145) mmol/L Potassium 4.5 (3.4-5.1) mmol/L Chloride 96 L (98-107) mmol/L Carbon Dioxide 24 (22-32) mmol/L BUN 62 H (9-20) mg/dL Creatinine 1.89 H (0.66-1.25) mg/dL Estimated GFR 38 L (>60) mL/min BUN/Creatinine Ratio 32.8 H (6-22) Glucose 280 H (80-110) mg/dL Lactate (0.7-2.1) mmol/L Calcium 8.7 (8.4-10.2) mg/dL Total Bilirubin 0.8 (0.2-1.3) mg/dL AST 46 (17-59) IU/L ALT 34 (<50) IU/L Alkaline Phosphatase 243 H (38-126) U/L Total Creatine Kinase (55-170) U/L CK-MB (CK-2) CK-MB (CK-2) Rel Index Troponin I 0.103 H (0.01-0.034) ng/mL NT-Pro-B Natriuret Pep (<125) pg/mL Total Protein 6.5 (6.3-8.2) g/dL Albumin 3.4 L (3.5-5.0) g/dL Globulin 3.1 (1.7-4.1) g/dL Albumin/Globulin Ratio 1.1 (1.0-2.8) Procalcitonin (<0.5) ng/mL Urine Color Urine Appearance Urine pH (4.5-8.0) Ur Specific [place] (1.000-1.035) Urine Protein (Negative) Urine Glucose (UA) (Negative) g/dL Urine Ketones (NEGATIVE) Urine Occult Blood (Negative) Urine Nitrate (Negative) Urine Bilirubin (NEGATIVE) Ur Bilirubin Confirm (Negative) Urine Urobilinogen (0.2) E.U./dL Ur Leukocyte Esterase (NEGATIVE) Urine RBC (0-5/HPF) Urine WBC (0-5/HPF) Ur Squamous Epith Cells (0-5/HPF) Amorphous Sediment Urine Bacteria (None) Ur Culture Indicated? Chlamy pneumoniae PCR (Not Detect) Adenovirus (PCR) (Not Detect) B. pertussis DNA (PCR) (Not Detecte) B.parapertussis DNA PCR (Not Detecte) Coronavirus OC43 (PCR) (Not Detect) Coronavirus HKU1 (PCR) (Not Detect) Coronavirus 229E (PCR) (Not Detect) SARS-CoV-2 (PCR) (Not Detecte) Coronavirus NL63 (PCR) (Not Detect) Human Metapneumovir PCR (Not Detect) Influenza Type A (PCR) (Not Detect) Influenza Type B (PCR) (Not Detect) M. pneumoniae (PCR) (Not Detect) Parainfluenza 1 (PCR) (Not Detect) Parainfluenza 2 (PCR) (Not Detect) Parainfluenza 3 (PCR) (Not Detect) Parainfluenza 4 (PCR) (Not Detect) RSV (PCR) (Not Detect) Entero/Rhino (PCR) (Not Detect) Imaging Data CT scan - chest: Radiologist Impression: Thrombus within the aortic arch adjacent to a MediPort catheter which is new and measures 1.2 x 1.2 cm there are progressive diffuse nodules throughout all lobes of the lung compatible with metastatic disease, enlarged mediastinal lymph nodes measuring up to 1.6 cm, no pulmonary embolism or aortic dissection CT scan - abdomen/pelvis: Radiologist Impression: Large enhancing bladder wall mass compatible with no neoplasm with numerous peripheral enhancing low-attenuation hepatic lesions compatible with metastatic disease and mesenteric and retroperitoneal adenopathy. Severe left hydroureteronephrosis with new mid ureteral calculi measuring up to 6 mm and probable extension of the bladder mass into the left distal ureter <Isis Miguel, - Last Filed: 06/06/22 19:51> Lab Data Labs: Lab Results 06/06/22 06/06/22 06/06/22 Range/Units 03:55 03:55 03:55 WBC 17.6 H (4.5-11.0) X10^3/uL RBC 5.75 (4.5-5.9) X10^6/uL Hgb 15.9 (13.5-17.5) g/dL Hct 47.9 (41-53) % MCV 83.3 (80-100) fL MCH 27.6 (26-34) PG MCHC 33.2 (30-36) % RDW 15.9 H (11.6-14.8) % Plt Count 318 (150-400) X10^3/uL Neut % (Auto) 89.2 H (50-75) % Lymph % (Auto) 2.8 L (25-40) % [place] % (Auto) 7.2 (3-14) % Eos % (Auto) 0.1 L (2-4) % Baso % (Auto) 0.7 (0-2) % Neut # (Auto) 07443 H (3553-2366) /uL Lymph # (Auto) 500 L (4318-3712) /uL [place] # (Auto) 1300 H (0-900) /uL Eos # (Auto) 0 (0-450) /uL Baso # (Auto) 100 (0-100) /uL PT 13.3 H (10.1-12.7) SECONDS INR 1.2 (0.9-1.3) APTT (26.4-36.2) SECONDS ABG pH (7.35-7.45) ABG pCO2 (35-45) mmHg ABG pO2 (80-100) mmHg ABG HCO3 (22-26) mmol/L ABG Total CO2 (21-31) mmol/L ABG O2 Saturation (95-100) % ABG Base Excess (-2-2) mmol/L FiO2 Sodium 138 (137-145) mmol/L Potassium 4.2 (3.4-5.1) mmol/L Chloride 98 (98-107) mmol/L Carbon Dioxide 23 (22-32) mmol/L BUN 59 H (9-20) mg/dL Creatinine 1.70 H (0.66-1.25) mg/dL Estimated GFR 43 L (>60) mL/min BUN/Creatinine Ratio 34.7 H (6-22) Glucose 264 H (80-110) mg/dL Lactate (0.7-2.1) mmol/L Calcium 8.8 (8.4-10.2) mg/dL Total Bilirubin 0.8 (0.2-1.3) mg/dL AST 41 (17-59) IU/L ALT 34 (<50) IU/L Alkaline Phosphatase 244 H (38-126) U/L Total Creatine Kinase 54 L (55-170) U/L CK-MB (CK-2) TNP CK-MB (CK-2) Rel Index TNP Troponin I 0.065 H (0.01-0.034) ng/mL NT-Pro-B Natriuret Pep 4350 H (<125) pg/mL Total Protein 6.4 (6.3-8.2) g/dL Albumin 3.5 (3.5-5.0) g/dL Globulin 2.9 (1.7-4.1) g/dL Albumin/Globulin Ratio 1.2 (1.0-2.8) Procalcitonin 0.61 H (<0.5) ng/mL Urine Color Urine Appearance Urine pH (4.5-8.0) Ur Specific [place] (1.000-1.035) Urine Protein (Negative) Urine Glucose (UA) (Negative) g/dL Urine Ketones (NEGATIVE) Urine Occult Blood (Negative) Urine Nitrate (Negative) Urine Bilirubin (NEGATIVE) Ur Bilirubin Confirm (Negative) Urine Urobilinogen (0.2) E.U./dL Ur Leukocyte Esterase (NEGATIVE) Urine RBC (0-5/HPF) Urine WBC (0-5/HPF) Ur Squamous Epith Cells (0-5/HPF) Amorphous Sediment Urine Bacteria (None) Ur Culture Indicated? Chlamy pneumoniae PCR (Not Detect) Adenovirus (PCR) (Not Detect) B. pertussis DNA (PCR) (Not Detecte) B.parapertussis DNA PCR (Not Detecte) Coronavirus OC43 (PCR) (Not Detect) Coronavirus HKU1 (PCR) (Not Detect) Coronavirus 229E (PCR) (Not Detect) SARS-CoV-2 (PCR) (Not Detecte) Coronavirus NL63 (PCR) (Not Detect) Human Metapneumovir PCR (Not Detect) Influenza Type A (PCR) (Not Detect) Influenza Type B (PCR) (Not Detect) M. pneumoniae (PCR) (Not Detect) Parainfluenza 1 (PCR) (Not Detect) Parainfluenza 2 (PCR) (Not Detect) Parainfluenza 3 (PCR) (Not Detect) Parainfluenza 4 (PCR) (Not Detect) RSV (PCR) (Not Detect) Entero/Rhino (PCR) (Not Detect) 06/06/22 06/06/22 06/06/22 Range/Units 03:55 04:15 04:57 WBC (4.5-11.0) X10^3/uL RBC (4.5-5.9) X10^6/uL Hgb (13.5-17.5) g/dL Hct (41-53) % MCV (80-100) fL MCH (26-34) PG MCHC (30-36) % RDW (11.6-14.8) % Plt Count (150-400) X10^3/uL Neut % (Auto) (50-75) % Lymph % (Auto) (25-40) % [place] % (Auto) (3-14) % Eos % (Auto) (2-4) % Baso % (Auto) (0-2) % Neut # (Auto) (1767-2817) /uL Lymph # (Auto) (4867-2563) /uL [place] # (Auto) (0-900) /uL Eos # (Auto) (0-450) /uL Baso # (Auto) (0-100) /uL PT (10.1-12.7) SECONDS INR (0.9-1.3) APTT (26.4-36.2) SECONDS ABG pH 7.52 H (7.35-7.45) ABG pCO2 34.2 L (35-45) mmHg ABG pO2 92 (80-100) mmHg ABG HCO3 28 H (22-26) mmol/L ABG Total CO2 29 (21-31) mmol/L ABG O2 Saturation 98 (95-100) % ABG Base Excess 5.0 H (-2-2) mmol/L FiO2 28 Sodium (137-145) mmol/L Potassium (3.4-5.1) mmol/L Chloride (98-107) mmol/L Carbon Dioxide (22-32) mmol/L BUN (9-20) mg/dL Creatinine (0.66-1.25) mg/dL Estimated GFR (>60) mL/min BUN/Creatinine Ratio (6-22) Glucose (80-110) mg/dL Lactate 4.0 H (0.7-2.1) mmol/L Calcium (8.4-10.2) mg/dL Total Bilirubin (0.2-1.3) mg/dL AST (17-59) IU/L ALT (<50) IU/L Alkaline Phosphatase (38-126) U/L Total Creatine Kinase (55-170) U/L CK-MB (CK-2) CK-MB (CK-2) Rel Index Troponin I (0.01-0.034) ng/mL NT-Pro-B Natriuret Pep (<125) pg/mL Total Protein (6.3-8.2) g/dL Albumin (3.5-5.0) g/dL Globulin (1.7-4.1) g/dL Albumin/Globulin Ratio (1.0-2.8) Procalcitonin (<0.5) ng/mL Urine Color Urine Appearance Urine pH (4.5-8.0) Ur Specific [place] (1.000-1.035) Urine Protein (Negative) Urine Glucose (UA) (Negative) g/dL Urine Ketones (NEGATIVE) Urine Occult Blood (Negative) Urine Nitrate (Negative) Urine Bilirubin (NEGATIVE) Ur Bilirubin Confirm (Negative) Urine Urobilinogen (0.2) E.U./dL Ur Leukocyte Esterase (NEGATIVE) Urine RBC (0-5/HPF) Urine WBC (0-5/HPF) Ur Squamous Epith Cells (0-5/HPF) Amorphous Sediment Urine Bacteria (None) Ur Culture Indicated? Chlamy pneumoniae PCR Not detected (Not Detect) Adenovirus (PCR) Not detected (Not Detect) B. pertussis DNA (PCR) Not detected (Not Detecte) B.parapertussis DNA PCR Not detected (Not Detecte) Coronavirus OC43 (PCR) Not detected (Not Detect) Coronavirus HKU1 (PCR) Not detected (Not Detect) Coronavirus 229E (PCR) Not detected (Not Detect) SARS-CoV-2 (PCR) Not detected (Not Detecte) Coronavirus NL63 (PCR) Not detected (Not Detect) Human Metapneumovir PCR Not detected (Not Detect) Influenza Type A (PCR) Not detected (Not Detect) Influenza Type B (PCR) Not detected (Not Detect) M. pneumoniae (PCR) Not detected (Not Detect) Parainfluenza 1 (PCR) Not detected (Not Detect) Parainfluenza 2 (PCR) Not detected (Not Detect) Parainfluenza 3 (PCR) Not detected (Not Detect) Parainfluenza 4 (PCR) Not detected (Not Detect) RSV (PCR) Not detected (Not Detect) Entero/Rhino (PCR) Not detected (Not Detect) 06/06/22 06/06/22 06/06/22 Range/Units 06:28 08:10 10:33 WBC (4.5-11.0) X10^3/uL RBC (4.5-5.9) X10^6/uL Hgb (13.5-17.5) g/dL Hct (41-53) % MCV (80-100) fL MCH (26-34) PG MCHC (30-36) % RDW (11.6-14.8) % Plt Count (150-400) X10^3/uL Neut % (Auto) (50-75) % Lymph % (Auto) (25-40) % [place] % (Auto) (3-14) % Eos % (Auto) (2-4) % Baso % (Auto) (0-2) % Neut # (Auto) (8929-8246) /uL Lymph # (Auto) (2128-1874) /uL [place] # (Auto) (0-900) /uL Eos # (Auto) (0-450) /uL Baso # (Auto) (0-100) /uL PT (10.1-12.7) SECONDS INR (0.9-1.3) APTT 29 D (26.4-36.2) SECONDS ABG pH (7.35-7.45) ABG pCO2 (35-45) mmHg ABG pO2 (80-100) mmHg ABG HCO3 (22-26) mmol/L ABG Total CO2 (21-31) mmol/L ABG O2 Saturation (95-100) % ABG Base Excess (-2-2) mmol/L FiO2 Sodium (137-145) mmol/L Potassium (3.4-5.1) mmol/L Chloride (98-107) mmol/L Carbon Dioxide (22-32) mmol/L BUN (9-20) mg/dL Creatinine (0.66-1.25) mg/dL Estimated GFR (>60) mL/min BUN/Creatinine Ratio (6-22) Glucose (80-110) mg/dL Lactate 3.7 H (0.7-2.1) mmol/L Calcium (8.4-10.2) mg/dL Total Bilirubin (0.2-1.3) mg/dL AST (17-59) IU/L ALT (<50) IU/L Alkaline Phosphatase (38-126) U/L Total Creatine Kinase (55-170) U/L CK-MB (CK-2) CK-MB (CK-2) Rel Index Troponin I (0.01-0.034) ng/mL NT-Pro-B Natriuret Pep (<125) pg/mL Total Protein (6.3-8.2) g/dL Albumin (3.5-5.0) g/dL Globulin (1.7-4.1) g/dL Albumin/Globulin Ratio (1.0-2.8) Procalcitonin (<0.5) ng/mL Urine Color Brown Urine Appearance Sl cloudy Urine pH 6.5 (4.5-8.0) Ur Specific [place] 1.025 (1.000-1.035) Urine Protein 3+ H (Negative) Urine Glucose (UA) Trace H (Negative) g/dL Urine Ketones 1+ H (NEGATIVE) Urine Occult Blood 3+ H (Negative) Urine Nitrate Negative (Negative) Urine Bilirubin 2+ H (NEGATIVE) Ur Bilirubin Confirm Negative (Negative) Urine Urobilinogen 0.2 (0.2) E.U./dL Ur Leukocyte Esterase Trace H (NEGATIVE) Urine RBC >100/hpf H (0-5/HPF) Urine WBC 1-5/hpf (0-5/HPF) Ur Squamous Epith Cells 1-5 /hpf (0-5/HPF) Amorphous Sediment 2+ Urine Bacteria None seen (None) Ur Culture Indicated? Specimen cultured Chlamy pneumoniae PCR (Not Detect) Adenovirus (PCR) (Not Detect) B. pertussis DNA (PCR) (Not Detecte) B.parapertussis DNA PCR (Not Detecte) Coronavirus OC43 (PCR) (Not Detect) Coronavirus HKU1 (PCR) (Not Detect) Coronavirus 229E (PCR) (Not Detect) SARS-CoV-2 (PCR) (Not Detecte) Coronavirus NL63 (PCR) (Not Detect) Human Metapneumovir PCR (Not Detect) Influenza Type A (PCR) (Not Detect) Influenza Type B (PCR) (Not Detect) M. pneumoniae (PCR) (Not Detect) Parainfluenza 1 (PCR) (Not Detect) Parainfluenza 2 (PCR) (Not Detect) Parainfluenza 3 (PCR) (Not Detect) Parainfluenza 4 (PCR) (Not Detect) RSV (PCR) (Not Detect) Entero/Rhino (PCR) (Not Detect) 06/06/22 06/06/22 06/06/22 Range/Units 10:35 10:35 11:40 WBC 15.3 H (4.5-11.0) X10^3/uL RBC 5.19 (4.5-5.9) X10^6/uL Hgb 14.1 (13.5-17.5) g/dL Hct 43.9 (41-53) % MCV 84.5 (80-100) fL MCH 27.2 (26-34) PG MCHC 32.2 (30-36) % RDW 16.3 H (11.6-14.8) % Plt Count 312 (150-400) X10^3/uL Neut % (Auto) 91.9 H (50-75) % Lymph % (Auto) 2.2 L (25-40) % [place] % (Auto) 4.8 (3-14) % Eos % (Auto) 0.1 L (2-4) % Baso % (Auto) 1.0 (0-2) % Neut # (Auto) 85686 H (9031-7171) /uL Lymph # (Auto) 300 L (1614-0909) /uL [place] # (Auto) 700 (0-900) /uL Eos # (Auto) 0 (0-450) /uL Baso # (Auto) 200 H (0-100) /uL PT (10.1-12.7) SECONDS INR (0.9-1.3) APTT (26.4-36.2) SECONDS ABG pH (7.35-7.45) ABG pCO2 (35-45) mmHg ABG pO2 (80-100) mmHg ABG HCO3 (22-26) mmol/L ABG Total CO2 (21-31) mmol/L ABG O2 Saturation (95-100) % ABG Base Excess (-2-2) mmol/L FiO2 Sodium 139 (137-145) mmol/L Potassium 4.5 (3.4-5.1) mmol/L Chloride 96 L (98-107) mmol/L Carbon Dioxide 24 (22-32) mmol/L BUN 62 H (9-20) mg/dL Creatinine 1.89 H (0.66-1.25) mg/dL Estimated GFR 38 L (>60) mL/min BUN/Creatinine Ratio 32.8 H (6-22) Glucose 280 H (80-110) mg/dL Lactate (0.7-2.1) mmol/L Calcium 8.7 (8.4-10.2) mg/dL Total Bilirubin 0.8 (0.2-1.3) mg/dL AST 46 (17-59) IU/L ALT 34 (<50) IU/L Alkaline Phosphatase 243 H (38-126) U/L Total Creatine Kinase (55-170) U/L CK-MB (CK-2) CK-MB (CK-2) Rel Index Troponin I 0.103 H (0.01-0.034) ng/mL NT-Pro-B Natriuret Pep (<125) pg/mL Total Protein 6.5 (6.3-8.2) g/dL Albumin 3.4 L (3.5-5.0) g/dL Globulin 3.1 (1.7-4.1) g/dL Albumin/Globulin Ratio 1.1 (1.0-2.8) Procalcitonin (<0.5) ng/mL Urine Color Urine Appearance Urine pH (4.5-8.0) Ur Specific [place] (1.000-1.035) Urine Protein (Negative) Urine Glucose (UA) (Negative) g/dL Urine Ketones (NEGATIVE) Urine Occult Blood (Negative) Urine Nitrate (Negative) Urine Bilirubin (NEGATIVE) Ur Bilirubin Confirm (Negative) Urine Urobilinogen (0.2) E.U./dL Ur Leukocyte Esterase (NEGATIVE) Urine RBC (0-5/HPF) Urine WBC (0-5/HPF) Ur Squamous Epith Cells (0-5/HPF) Amorphous Sediment Urine Bacteria (None) Ur Culture Indicated? Chlamy pneumoniae PCR (Not Detect) Adenovirus (PCR) (Not Detect) B. pertussis DNA (PCR) (Not Detecte) B.parapertussis DNA PCR (Not Detecte) Coronavirus OC43 (PCR) (Not Detect) Coronavirus HKU1 (PCR) (Not Detect) Coronavirus 229E (PCR) (Not Detect) SARS-CoV-2 (PCR) (Not Detecte) Coronavirus NL63 (PCR) (Not Detect) Human Metapneumovir PCR (Not Detect) Influenza Type A (PCR) (Not Detect) Influenza Type B (PCR) (Not Detect) M. pneumoniae (PCR) (Not Detect) Parainfluenza 1 (PCR) (Not Detect) Parainfluenza 2 (PCR) (Not Detect) Parainfluenza 3 (PCR) (Not Detect) Parainfluenza 4 (PCR) (Not Detect) RSV (PCR) (Not Detect) Entero/Rhino (PCR) (Not Detect) Imaging Data CT scan - chest: Radiologist Impression: Thrombus within the aortic arch adjacent to a MediPort catheter which is new and measures 1.2 x 1.2 cm there are progressive diffuse nodules throughout all lobes of the lung compatible with metastatic disease, enlarged mediastinal lymph nodes measuring up to 1.6 cm, no pulmonary embolism or aortic dissection [address] [place] [id number] Scan Report Signed Patient: Stewart Sanderson MR#: [id number] : 1950 Acct:[id number] Age/Sex: 71 / M Date of Service: 06/06/22 Loc: ED Accession Number: [id number] ?? Procedure: CT angio chest PE protocol Ordering Provider: Butch Archer D.O. PROCEDURE:? CT ANGIO CHEST PE PROTOCOL ? INDICATIONS:? SOB, hypoxemia, tachypnea ? TECHNIQUE:? After the administration of intravenous contrast, 2 mm thick sections acquired from the pulmonary apices to the posterior costophrenic angles.? 3-dimensional maximum intensity projection (MIP) coronal and sagittal reformats were then acquired through the thorax.? For radiation dose reduction, the following was used:? automated exposure control, adjustment of mA and/or kV according to patient size.? ? COMPARISON:? [facility], CT, CT ABDOMEN PELVIS W CON, 06/06/2022, 5:04.? [facility], CT, CT ANGIO CHEST PE PROTOCOL, 05/25/2022, 15:35. ? FINDINGS:? Image quality:? Excellent.? ? Pulmonary arteries:? Main pulmonary artery measures 3.3 cm in diameter, which can be seen in setting of pulmonary hypertension.? No intraluminal filling defects to suggest central pulmonary embolism.? ? Lungs and pleura:? Small bilateral pleural effusions with atelectasis of the adjacent lung bases.? Innumerable pulmonary nodules are seen throughout both lungs with areas of nodular septal line thickening.? Findings have not significantly changed in extent when compared to the CT from 05/25/2022.? No pneumothorax. ? Mediastinum:? Heart size is normal, without pericardial effusion.? Moderate coronary artery calcifications.? Mild reflux of contrast material into the hepatic veins.? A few mildly prominent mediastinal lymph nodes are again seen measuring 1.1 cm in short axis in the right paratracheal region (50/4), 0.8 cm short axis at the AP window (57/4), and approximately 1.6 cm in short axis at the subcarinal region (71/4).? Stable 1.4 cm right hilar lymph node (72/4).? Esophagus is normal in caliber, without hiatal hernia.? ? Bones and chest wall:? A left chest port is seen in the ring the left subclavian artery with tip in the ascending thoracic aorta.? A small amount of thrombus is seen adjacent to the catheter in the aortic arch measuring up to 1.2 x 0.9 cm in axial dimensions (56/4).? No definite osteolytic or osteoblastic lesion is seen.? Thyroid is unremarkable.? No axillary or supraclavicular adenopathy.? ? Abdomen:? Small gallstones are seen in the gallbladder.? A right renal calcification is partially imaged that may represent a nonobstructing calculus.? There is prominence of the left renal collecting system.? ? IMPRESSION:? 1. Arterial placement of a left chest Port-A-Cath, which is seen within the left subclavian artery with tip in the ascending thoracic aorta.? A small focus of thrombus is seen adherent to the catheter within the aortic arch. 2. No acute pulmonary embolus.? 3. Innumerable pulmonary nodules again seen throughout both lungs. 4. Small bilateral pleural effusions. 5. Main pulmonary artery measures 3.3 cm in diameter, which can be seen in the setting of pulmonary hypertension. ? Findings were conveyed to Dr. Archer by [facility] at the time of the preliminary interpretation. ? There is no significant discrepancy when compared to the overnight preliminary report. ? ? Dictated by: Ha Cooley M.D. on 06/06/2022 at 8:03 ? ? CT scan - abdomen/pelvis: Radiologist Impression: Large enhancing bladder wall mass compatible with no neoplasm with numerous peripheral enhancing low-attenuation hepatic lesions compatible with metastatic disease and mesenteric and retroperitoneal adenopathy. Severe left hydroureteronephrosis with new mid ureteral calculi measuring up to 6 mm and probable extension of the bladder mass into the left distal ureter Chest x-ray: Radiologist Impression: Signed Patient: Stewart Sanderson MR#: [id number] : 1950 Acct:[id number] Age/Sex: 71 / M Date of Service: 06/06/22 Loc: ED Accession Number: [id number] ?? Procedure: XR chest 1V Ordering Provider: Butch Archer D.O. PROCEDURE:? XR CHEST 1V ? INDICATIONS:? line placement ? TECHNIQUE:? One view of the chest was acquired.? ? COMPARISON:? [facility], CR, XR CHEST 1V, 06/06/2022, 3:57. ? FINDINGS:? ? Surgical changes and devices:? Left tunneled port device is in place.? Distal tip projects over the upper SVC, likely a short distance near the confluence of the brachiocephalic vein.? ? Lungs and pleura:? Diffuse interstitial prominence with diffusely scattered nodular opacities scattered throughout the bilateral hemithoraces.? No new acute consolidation visualized.? No pneumothorax seen.? Trace bilateral pleural effusions. ? Mediastinum:? Mediastinal contours appear stable.? Heart size is normal.? ? Bones and chest wall:? No suspicious bony lesions.? Overlying soft tissues appear unremarkable.? ? IMPRESSION:? Left tunneled port device is present with the distal tip projecting over the upper SVC. ? Stable appearance of diffuse nodular airspace opacities ? Dictated by: Marcos Ríos M.D. on 06/06/2022 at 7:36? ECG Data Interpretation: Sinus rhythm rate 100 p.r. interval 118 QRS [address] changes no T-wave inversion MDM Narrative Medical decision making narrative: [place]-patient signed out to me by Dr. Acrher of seen evaluated patient myself. Patient presents with all metastatic bladder cancer. New onset AFib. Failed cardioversion he was shocked 3 times. Patient was placed on a diltiazem drip which she was nonresponsive 2. Diltiazem drip was stopped and he spontaneously converted back into sinus rhythm. Blood pressure has improved since then as well. Patient had a MediPort placed at this hospital on May 31 it appears that it is iin aorta with surrounding aortic thrombus. This clear may not be contributing to his new onset atrial fibrillation. Patient is overall weak and does not feel well. 900-Dr. Ledezma consulted in regards to atrial placement of port. Recommend transferring to vascular service and agrees with heparin drip 1030-patient developing increasing respiratory distress. Elevated BNP probable congestive heart failure from AFib with RVR. He is becoming responsive. He is placed on BiPAP given nitroglycerin and Lasix an attempt for diuresis. Multiple phone calls placed in regards to his aortic thrombus and arterial placement of port. He remains in sinus rhythm currently. No family. Attempting to locate DP away. Close friend at bedside. spoke with sister on phone, unsure who his DPOA is. 1045- Dr. Baker, vascular surgery updated on patient's MediPort issue. Recommend anticoagulation do not use the MediPort. Very risky to pull out could cause thrombus dislodgement, recommends waiting repeat imaging in 1 week. 1130 patient was on BiPAP. For CHF pulmonary edema and decreasing respiratory status. He did not respond well to BiPAP. O2 sats were dropping mental status was decreasing. Decision to intubate. He was given ketamine and succinylcholine. Airway was filled with fluid probable aspiration versus pulmonary edema it was dark in nature not gross blood. The patient lost pulses Aleyda intubation. CPR was initially started. Appear to be of the fib rest. He was cardioverted, given amiodarone epinephrine bicarb. Due to the thrombus and CPR tPA was also given. CPR continued multiple doses of epinephrine for almost 20 minutes. Ultrasound confirmed no cardiac activity. Sister was updated. Time of 12:08 p.m. Patient's friends and family have are updated. <Isis Miguel, - Last Filed: 06/06/22 19:51> Critical Care Time Critical Care Time: Yes Total Critical Care Time: 60 Attestation: The high probability of a clinically significant, sudden or life threatening deterioration of the [cardiovascular] system(s) required my full and direct attention, intervention and personal management. The aggregate critical care time was 60 minutes. This time is in addition to time spent performing reported procedures but includes the following: [x] Data Review and interpretation [x] Patient assessment and monitoring of vital signs [x] Documentation [x] Medication orders and management Discharge Plan Departure Patient Disposition: Clinical Impression: Congestive heart failure, Bladder cancer, Atrial fibrillation, Aortic thrombus Date/Time: 06/06/22 12:07
--- NOTE | 2022-06-06 04:09 | PC.NURSE ---
Pt unable to lift his arms he states because he is so weak.
[2022-06-06 04:12] LABS: Add Manual Diff / Slide Review NO; Basophils Absolute Auto 100 /uL (0-100); Basophils Percent Auto 0.7 % (0-2); Eosinophils Absolute Auto 0 /uL (0-450); Eosinophils Percent Auto 0.1 % (2-4); Hematocrit 47.9 % (41-53); Hemoglobin 15.9 g/dL (13.5-17.5); Lymphocytes Absolute Auto 500 /uL (1100-4500); Lymphocytes Percent Auto 2.8 % (25-40); Mean Corpuscular HGB Conc 33.2 % (30-36); Mean Corpuscular Hemoglobin 27.6 PG (26-34); Mean Corpuscular Volume 83.3 fL (80-100); Monocytes Absolute Auto 1300 /uL (0-900); Monocytes Percent Auto 7.2 % (3-14); Neutrophils Absolute Auto 15700 /uL (1500-7000); Neutrophils Percent Auto 89.2 % (50-75); Platelet Count 318 X10^3/uL (150-400); Red Blood Cell Count 5.75 X10^6/uL (4.5-5.9); Red Cell Distribution Width 15.9 % (11.6-14.8); White Blood Cell Count 17.6 X10^3/uL (4.5-11.0)
[2022-06-06 04:21] LABS: INR 1.2 (0.9-1.3); Prothrombin Time 13.3 SECONDS (10.1-12.7)
[2022-06-06 04:26] LABS: Alanine Aminotransferase 34 IU/L (<50); Albumin 3.5 g/dL (3.5-5.0); Albumin Globulin Ratio 1.2 (1.0-2.8); Alkaline Phosphatase 244 U/L (38-126); Aspartate Aminotransferase 41 IU/L (17-59); BUN Creatinine Ratio 34.7 (6-22); Bilirubin Total 0.8 mg/dL (0.2-1.3); Blood Urea Nitrogen 59 mg/dL (9-20); Calcium 8.8 mg/dL (8.4-10.2); Carbon Dioxide 23 mmol/L (22-32); Chloride 98 mmol/L (98-107); Creatine Kinase 54 U/L (55-170); Estimated Glomerular Filt Rate 43 mL/min (>60); Globulin 2.9 g/dL (1.7-4.1); Glucose 264 mg/dL (80-110); HEMOLYSIS 19 (0-50); Potassium 4.2 mmol/L (3.4-5.1); Sodium 138 mmol/L (137-145); Total Protein 6.4 g/dL (6.3-8.2)
[2022-06-06 04:38] LABS: NT-proBNP (BNP-Adult 18+) 4350 pg/mL (<125); Troponin I 0.065 ng/mL (0.01-0.034)
[2022-06-06 04:42] LABS: Procalcitonin 0.61 ng/mL (<0.5)
--- NOTE | 2022-06-06 04:45 | DI.CT.S_ITS ---
PROCEDURE: CT ANGIO CHEST PE PROTOCOL INDICATIONS: SOB, hypoxemia, tachypnea TECHNIQUE: After the administration of intravenous contrast, 2 mm thick sections acquired from the pulmonary apices to the posterior costophrenic angles. 3-dimensional maximum intensity projection (MIP) coronal and sagittal reformats were then acquired through the thorax. For radiation dose reduction, the following was used: automated exposure control, adjustment of mA and/or kV according to patient size. COMPARISON: [facility], CT, CT ABDOMEN PELVIS W CON, 06/06/2022, 5:04. [facility], CT, CT ANGIO CHEST PE PROTOCOL, 05/25/2022, 15:35. FINDINGS: Image quality: Excellent. Pulmonary arteries: Main pulmonary artery measures 3.3 cm in diameter, which can be seen in setting of pulmonary hypertension. No intraluminal filling defects to suggest central pulmonary embolism. Lungs and pleura: Small bilateral pleural effusions with atelectasis of the adjacent lung bases. Innumerable pulmonary nodules are seen throughout both lungs with areas of nodular septal line thickening. Findings have not significantly changed in extent when compared to the CT from 05/25/2022. No pneumothorax. Mediastinum: Heart size is normal, without pericardial effusion. Moderate coronary artery calcifications. Mild reflux of contrast material into the hepatic veins. A few mildly prominent mediastinal lymph nodes are again seen measuring 1.1 cm in short axis in the right paratracheal region (50/4), 0.8 cm short axis at the AP window (57/4), and approximately 1.6 cm in short axis at the subcarinal region (71/4). Stable 1.4 cm right hilar lymph node (72/4). Esophagus is normal in caliber, without hiatal hernia. Bones and chest wall: A left chest port is seen in the ring the left subclavian artery with tip in the ascending thoracic aorta. A small amount of thrombus is seen adjacent to the catheter in the aortic arch measuring up to 1.2 x 0.9 cm in axial dimensions (56/4). No definite osteolytic or osteoblastic lesion is seen. Thyroid is unremarkable. No axillary or supraclavicular adenopathy. Abdomen: Small gallstones are seen in the gallbladder. A right renal calcification is partially imaged that may represent a nonobstructing calculus. There is prominence of the left renal collecting system. IMPRESSION: 1. Arterial placement of a left chest Port-A-Cath, which is seen within the left subclavian artery with tip in the ascending thoracic aorta. A small focus of thrombus is seen adherent to the catheter within the aortic arch. 2. No acute pulmonary embolus. 3. Innumerable pulmonary nodules again seen throughout both lungs. 4. Small bilateral pleural effusions. 5. Main pulmonary artery measures 3.3 cm in diameter, which can be seen in the setting of pulmonary hypertension. Findings were conveyed to Dr. Archer by [facility] at the time of the preliminary interpretation. There is no significant discrepancy when compared to the overnight preliminary report. Dictated by: Ha Cooley M.D. on 06/06/2022 at 8:03 Approved by: Ha Cooley M.D. on 06/06/2022 at 8:27
--- NOTE | 2022-06-06 04:47 | DI.CT.S_ITS ---
PROCEDURE: CT ABDOMEN PELVIS W CON INDICATIONS: sepsis TECHNIQUE: After the administration of intravenous contrast, axial sections acquired from the lung bases to the pubic symphysis. Coronal and sagittal reformats were performed. For radiation dose reduction, the following was used: automated exposure control, adjustment of mA and/or kV according to patient size. COMPARISON: [facility], CT, CT ABDOMEN PELVIS W CON, 05/07/2022, 3:18. [facility], CT, CT ABDOMEN PELVIS W CON, 02/05/2022, 22:19. FINDINGS: Image quality: Diagnostic Lung bases: Small left pleural effusion with associated compressive atelectasis. Diffuse nodular opacities scattered throughout the visualized bilateral lower lobes, better evaluated on dedicated CT of the chest. Small hiatal hernia Heart: No significant findings. Coronary atherosclerotic vascular calcifications are noted. ABDOMEN: Liver: Redemonstration of diffusely scattered hepatic hypodensities compatible with metastatic disease. Findings appear stable to mildly progressed. Gallbladder: Multiple layering gallstones are again noted. No evidence for gallbladder wall thickening or pericholecystic stranding. Biliary ducts: No intrahepatic or extrahepatic biliary ductal dilatation identified. Pancreas: Homogeneous enhancement without focal lesions or pancreatic ductal dilatation. No peripancreatic inflammation or organized fluid collections. Spleen: Unremarkable. Adrenal Glands: Unremarkable. Kidneys and Ureters: There is a 1.1 cm medial right lower pole renal hypodensity which likely represents a cyst. There is a new 1.6 cm posterior right renal hypodensity measuring greater than fluid attenuation. No hydronephrosis on the right. Right ureter is normal in course and caliber. No significant perinephric stranding or periureteral stranding on the right. On the left, redemonstration of staghorn calculus within the lower pole of the left kidney. Severe left hydroureteronephrosis secondary to an obstructing mass along the left lateral wall of the urinary bladder which is indistinguishable from the margins of the adjacent enlarged prostate gland. There is also a 5 mm ureteral stone visualized in the mid left ureter. Stomach and Bowel: Mild gastric distension. Otherwise, stomach, small bowel loops, and colon are unremarkable. Appendix is normal. Peritoneum: No abnormal intraperitoneal fluid. No free air. Ventral Wall: No hernias. Abdominal Nodes: Scattered mesenteric lymph nodes are again noted. Enlarged retroperitoneal lymph node measures 1.3 cm in short axis dimension (image 27/series 2). Vessels: Scattered atherosclerotic calcifications of the abdominal aorta and iliac vessels without aneurysmal dilatation. The inferior vena cava appears patent.. PELVIS: Pelvic Organs/bladder: Prostate is enlarged measuring approximately 6.5 x 5.4 cm in axial cross-sectional dimension. Coarse prostatic calcifications are noted. The prostate is indistinguishable from adjacent ill-defined, heterogeneous mass which appears to involve the left wall and posterior wall of the urinary bladder. The distal margins of the left ureter extends into this soft tissue mass which likely causes previously described left-sided obstructive uropathy. Pelvic Nodes: Prominent anterior left pelvic sidewall lymph node now measuring approximately 9 mm in short axis dimension (image 67/series 2). This has enlarged slightly. Prominent presacral lymph node is again noted measuring approximately 8 mm in short axis dimension (image 66/series 2). Miscellaneous: No hernias are seen. Bones: No acute vertebral body compression fractures. Multilevel spondylitic changes throughout the imaged spine. No suspicious osseous lesions. IMPRESSION: 1. Redemonstration of severe left hydroureteronephrosis secondary to large, enhancing bladder wall mass predominantly involving the posterior and left wall of the urinary bladder with associated hepatic metastases and adenopathy of the mesentery/retroperitoneum. Left bladder mass appears to extend into the distal left ureter. If further evaluation is needed, consider CT IVP. 2. New 1.6 cm posterior right renal hypodensity measuring higher than fluid attenuation. This may represent a hyperdense cyst versus possible soft tissue lesion. Consider further evaluation with ultrasound to document if this is a cystic versus solid lesion. 3. Progressive bilateral lower lobe pulmonary nodules, better evaluated on dedicated CT of the chest. Please see separate report for details. 4. New 5 mm mid left ureteral stone. 5. Cholelithiasis without evidence for acute cholecystitis. Other chronic findings as above. No significant discrepancy with the production supervisor off shift radiology preliminary report. Dictated by: Marcos Ríos M.D. on 06/06/2022 at 8:49 Approved by: Marcos Ríos M.D. on 06/06/2022 at 9:15
[2022-06-06] MEDS: PIPERACILLIN/TAZO 4.5 GM in SODIUM CHLORIDE 0.9% 100 ML IV (04:55)
[2022-06-06] MEDS: LACTATED RINGERS 1,000 ML 1000 ML IV (04:56)
[2022-06-06 05:12] LABS: HCO3 ABG 28 mmol/L (22-26); PCO2 ABG 34.2 mmHg (35-45); PO2 ABG 92 mmHg (80-100); TCO2 ABG 29 mmol/L (21-31); pH ABG 7.52 (7.35-7.45)
[2022-06-06 05:13] LABS: Fractionated Inspired Oxygen 28; Oxygen Saturation ABG 98 % (95-100)
[2022-06-06 05:19] LABS: Adenovirus Not Detected (Not Detect); B. parapertussis Not Detected (Not Detecte); Bordetella pertussis Not Detected (Not Detecte); Chlamydophila pneumoniae Not Detected (Not Detect); Coronavirus 229E Not Detected (Not Detect); Coronavirus HKU1 Not Detected (Not Detect); Coronavirus NL 63 Not Detected (Not Detect); Coronavirus OC43 Not Detected (Not Detect); Human Metapneumovirus Not Detected (Not Detect); Human Rhinovirus/Enterovirus Not Detected (Not Detect); Influenza A Not Detected (Not Detect); Influenza B Not Detected (Not Detect); Mycoplasma pneumoniae Not Detected (Not Detect); Parainfluenza Virus 1 Not Detected (Not Detect); Parainfluenza Virus 2 Not Detected (Not Detect); Parainfluenza Virus 3 Not Detected (Not Detect); Parainfluenza Virus 4 Not Detected (Not Detect); Respiratory Syncytial Virus Not Detected (Not Detect); SARS- CoV-2 Not Detected (Not Detecte)
[2022-06-06 06:07] LABS: Reflexed Lactate in 2 Hours Y
[2022-06-06] MEDS: propofoL 200 MG/20 ML VIAL 70 MG IV (06:13)
--- NOTE | 2022-06-06 06:24 | PC.NURSE ---
Pt suddenly entered afib RVR rhythm with rate 170-190s, pt reports some dizziness with this. Provider aware, multiple vagal maneuvers attempted without successful conversion to NSR. Provider, this RN, and respiratory therapy to bedside quickly for emergent conscious sedation. 30mg IV propofol given by Dr. Archer @ 0613, followed by a cardioversion shock @ 120j at 0614. Pt remained in afib RVR rate 180s. Pt then shocked again at 150j this time, no change in heart rhythm. Pt then shocked at 200j with no change. All shocks delivered with synchronized cardioversion. Pt remains in afib RVR with rate 160-180s. Pt arouses to verbal stimulation, but quick to fall back asleep. Pt BP remains stable with MAP >90, ETCO2 having difficulty reading due to pt mouth breathing, but 97% on 5L. Will continue to closely monitor pt.
[2022-06-06] MEDS: dilTIAZem 5 MG/ML SDV 10 MG IV (06:32)
[2022-06-06] MEDS: DILTIAZEM 125 MG/125 ML PIGGYBACK IV (06:36)
[2022-06-06 06:49] LABS: Lactate 2HR (Lactic Acid Rflx) 3.7 mmol/L (0.7-2.1)
--- NOTE | 2022-06-06 07:08 | DI.RAD.S_ITS ---
PROCEDURE: XR CHEST 1V INDICATIONS: line placement TECHNIQUE: One view of the chest was acquired. COMPARISON: [facility], CR, XR CHEST 1V, 06/06/2022, 3:57. FINDINGS: Surgical changes and devices: Left tunneled port device is in place. Distal tip projects over the upper SVC, likely a short distance near the confluence of the brachiocephalic vein. Lungs and pleura: Diffuse interstitial prominence with diffusely scattered nodular opacities scattered throughout the bilateral hemithoraces. No new acute consolidation visualized. No pneumothorax seen. Trace bilateral pleural effusions. Mediastinum: Mediastinal contours appear stable. Heart size is normal. Bones and chest wall: No suspicious bony lesions. Overlying soft tissues appear unremarkable. IMPRESSION: Left tunneled port device is present with the distal tip projecting over the upper SVC. Stable appearance of diffuse nodular airspace opacities Dictated by: Marcos Ríos M.D. on 06/06/2022 at 7:36 Approved by: Marcos Ríos M.D. on 06/06/2022 at 7:40
--- NOTE | 2022-06-06 07:26 | PC.NURSE ---
Total amount of IVF for sepsis protocol fully administered, although charted not given due to pt already having received 1 L that was charted prior to initiation of sepsis IVF order. Provider verbally confirmed that pt is only to receive 2100mL. Pt has only received 2100mL total.
[2022-06-06 08:28] LABS: PTT Partial Thromboplastin Tim 29 SECONDS (26.4-36.2)
[2022-06-06] MEDS: HEPARIN 5,000 UNIT/ML VIAL 5800 UNIT IV (08:39)
[2022-06-06] MEDS: HEPARIN DRIP 25,000 UNIT/500 ML IV.SOLN 26.028 UNIT IV (08:40)
[2022-06-06] MEDS: FUROSEMIDE 40 MG/4 ML VIAL IV (10:20)
[2022-06-06] MEDS: NITROGLYCERIN 0.4 MG SL TAB SL (10:25)
--- NOTE | 2022-06-06 10:35 | RT ---
Pt placed on BiPAP 14/8@50% per Dr. Miguel's verbal order. Pt tolerating well at this time w/ SpO2 >94%. RT will continue to monitor and wean as tolerated.
--- NOTE | 2022-06-06 10:40 | PC.NURSE ---
Provider Dr. Miguel asked that I place this patient on any hospital transfer list available that performs vascular surgery. Below are the results of this work. [facility]: Patient added to their transfer list. [facility]: Patient added to their transfer list. [facility]: Patient added to their transfer list. [facility]: Transfer center declined to add this patient due to them not having available bed space. [facility]: Transfer center declined to add this patient due to them not having available bed space. [facility]: Transfer center declined to add this patient due to them not having available bed space. [facility]: Patient added to their transfer list. [facility]: Called and left a message asking them to return my call to place this patient on their list.
[2022-06-06 10:49] LABS: Appearance Urine UA SL CLOUDY; Bilirubin Urine UA 2+ (NEGATIVE); Color Urine UA BROWN; Glucose Urine UA TRACE g/dL (Negative); Ketones Urine UA 1+ (NEGATIVE); Leukocyte Esterase Urine UA TRACE (NEGATIVE); Nitrite Urine UA NEGATIVE (Negative); Occult Blood Urine UA 3+ (Negative); Protein Urine UA 3+ (Negative); Specific Gravity Urine UA 1.025 (1.000-1.035); Urobilinogen Urine UA 0.2 E.U./dL (0.2); pH Urine UA 6.5 (4.5-8.0)
[2022-06-06 10:58] LABS: Amorphous Sediment Urine 2+; Bacteria Urine None Seen; Culture Indicated Urine Specimen Cultured; Ictotest Urine Negative (Negative); RBC Urine >100/HPF (0-5/HPF); Squamous Epithelial Cell Urine 1-5 /HPF (0-5/HPF); WBC Urine 1-5/HPF (0-5/HPF)
--- NOTE | 2022-06-06 11:01 | DI.RAD.S_ITS ---
PROCEDURE: XR CHEST FOR PICC 1V INDICATIONS: picc line place TECHNIQUE: One view of the chest was acquired. COMPARISON: [facility], CR, XR CHEST 1V, 06/06/2022, 7:15. FINDINGS: Surgical changes and devices: Interval placement of right upper extremity PICC with the distal tip projecting over the upper SVC. Stable positioning of previously described tunneled left port device. Lungs and pleura: No pneumothorax seen. Redemonstration of diffusely scattered nodular densities of the bilateral hemithoraces. Mediastinum: Mediastinal contours appear normal. Heart size is normal. Bones and chest wall: No suspicious bony lesions. Overlying soft tissues appear unremarkable. IMPRESSION: Right upper extremity PICC in place with the distal tip projecting over the upper SVC. No pneumothorax seen. Otherwise, stable cardiopulmonary evaluation. Dictated by: Marcos Ríos M.D. on 06/06/2022 at 12:24 Approved by: Marcos Ríos M.D. on 06/06/2022 at 12:26
[2022-06-06 11:04] LABS: Troponin I 0.103 ng/mL (0.01-0.034)
[2022-06-06] MEDS: FUROSEMIDE 100 MG/10 ML VIAL 60 MG IV (11:19)
[2022-06-06] MEDS: HYDROMORPHONE 1 MG INJ IV (11:27)
[2022-06-06 11:33] LABS: Alanine Aminotransferase 34 IU/L (<50); Albumin 3.4 g/dL (3.5-5.0); Albumin Globulin Ratio 1.1 (1.0-2.8); Alkaline Phosphatase 243 U/L (38-126); Aspartate Aminotransferase 46 IU/L (17-59); BUN Creatinine Ratio 32.8 (6-22); Bilirubin Total 0.8 mg/dL (0.2-1.3); Blood Urea Nitrogen 62 mg/dL (9-20); Calcium 8.7 mg/dL (8.4-10.2); Carbon Dioxide 24 mmol/L (22-32); Chloride 96 mmol/L (98-107); Estimated Glomerular Filt Rate 38 mL/min (>60); Globulin 3.1 g/dL (1.7-4.1); Glucose 280 mg/dL (80-110); HEMOLYSIS 15 (0-50); Potassium 4.5 mmol/L (3.4-5.1); Sodium 139 mmol/L (137-145); Total Protein 6.5 g/dL (6.3-8.2)
[2022-06-06 11:48] LABS: Add Manual Diff / Slide Review NO; Basophils Absolute Auto 200 /uL (0-100); Eosinophils Absolute Auto 0 /uL (0-450); Eosinophils Percent Auto 0.1 % (2-4); Hematocrit 43.9 % (41-53); Hemoglobin 14.1 g/dL (13.5-17.5); Lymphocytes Absolute Auto 300 /uL (1100-4500); Lymphocytes Percent Auto 2.2 % (25-40); Mean Corpuscular HGB Conc 32.2 % (30-36); Mean Corpuscular Hemoglobin 27.2 PG (26-34); Mean Corpuscular Volume 84.5 fL (80-100); Monocytes Absolute Auto 700 /uL (0-900); Monocytes Percent Auto 4.8 % (3-14); Neutrophils Absolute Auto 14100 /uL (1500-7000); Neutrophils Percent Auto 91.9 % (50-75); Platelet Count 312 X10^3/uL (150-400); Red Blood Cell Count 5.19 X10^6/uL (4.5-5.9); Red Cell Distribution Width 16.3 % (11.6-14.8); White Blood Cell Count 15.3 X10^3/uL (4.5-11.0)
--- NOTE | 2022-06-06 19:37 | PC.NURSE ---
1045-DI Nurse ARELIS Sue here to place PICC line. Standby assist to stabilize arm for placement. Patient tolerated procedure well.
--- NOTE | 2022-06-06 19:41 | PC.NURSE ---
1130 - RT in room to do ABG. Patient's oxygen saturation declining from 92%-88%. BiPap was subsequently adjusted by RT. Oxygen saturation continuing to decline down to 82%. Provider notified. Patient was subsequently sedated via RSI and intubated by Dr. Miguel. Shortly after patient was intubated, chest xray was performed to confirm placement. Patient as ventilated via bag-mask by RT. There was copious amount of dark brown secretions coming from patient's airway during and after intubation, requiring frequent suctioning. Patient's heart rate decreased down to 50's with long pauses. He then became pulseless and exhibited ventricular tachycardia on ekg monitor tech. CPR was initiated immediately and Sissy Carvajal was called. See [employer] paper flowsheet.
== END 2022-06-06 15:42 | disposition expired ==
PROVIDERS: Emergency Medicine; Emergency Provider Emergency Medicine; PCP Family Medicine
DX: I50.1 Left ventricular failure, unspecified (principal); R06.03 Acute respiratory distress; I48.91 Unspecified atrial fibrillation; I74.10 Embolism and thrombosis of unspecified parts of aorta; R00.0 Tachycardia, unspecified; Z20.822 Contact with and (suspected) exposure to COVID-19
CPT/HCPCS: 31500; 36415; 36569; 36600; 71045; 71275; 74177; 80053; 81001; 82550; 82805; 83605; 83880; 84145; 84484; 85025; 85610; 85730; 87040; 87086; 87633; 92950; 93005; 94799; 96365; 96366; 96367; 96375; 96376; 99152; 99285; 99291; 99292; J0171; J0282; J0330; J1170; J1644; J1940; J2543; J2704; J2997; Q9967